=== PATIENT | female | born 1950 | race Caucasian/White ===

== ENCOUNTER 2017-02-14 10:56 | Emergency (ER) | payer MEDICARE, MEDICAID ==
[2017-02-14 14:38] LABS: BASOPHILS 0.1 % (0-2); EOSINOPHILS 0.8 % (0-7); HEMATOCRIT 29.6 % (36.0-48.0); HEMOGLOBIN 9.9 g/dL (12-16); IMMATURE GRANULOCYTES 0.1 % (0-5); INR 1.04 (0.85-1.17); LYMPHOCYTES 19.8 % (15-50); MCH 29.8 pg (26.0-34.0); MCHC 33.4 g/dL (31.0-37.0); MCV 89.2 fL (80.0-100.0); MEAN PLATELET VOLUME 11.1 fL (7.4-10.4); MONOCYTES 7.4 % (2-11); NEUTROPHILS 71.8 % (40-80); PROTIME 13.5 SECONDS (11.6-15.0); RBC 3.32 10x6/uL (4.00-5.40); RDW 15.9 % (11.5-14.5); WBC 7.7 10x3/uL (4.8-10.8)
[2017-02-14 14:43] LABS: ALBUMIN 3.7 g/dL (3.4-5.0); ALKALINE PHOSPHATASE 60 U/L (46-116); ALT (SGPT) 12 U/L (10-68); CALC OSMOLALITY 289 mosm/kg (275-300); CALCIUM 9.1 mg/dL (8.5-10.1); CARBON DIOXIDE 25.4 mmol/L (21.0-32.0); CHLORIDE - SERUM 101 mmol/L (98-107); CREATININE - SERUM 1.6 mg/dL (0.6-1.3); GLUCOSE 106 mg/dL (74-106); PROTEIN - SERUM 8.8 g/dL (6.4-8.2); SODIUM 138 mmol/L (136-145); UREA NITROGEN 53 mg/dL (7-18); eGFR NON AFRICAN AMERICAN 34 mL/min (90-120)
[2017-02-14 14:44] LABS: PLATELET COUNT 160 10x3/uL (130-400)
[2017-02-14 14:47] LABS: TROPONIN-I < 0.017 ng/mL (0.000-0.060); URIC ACID 12.6 mg/dL (2.6-7.2)
== END 2017-02-14 15:30 | disposition left against medical advice (07) ==
LOC: D.ER 10:56
PROVIDERS: Nurse Practitioner Family
DX: M79.1 Myalgia (principal)

== ENCOUNTER 2017-12-18 11:18 | Emergency (ER) | payer MEDICARE, MEDICAID ==
[~2017-12-18] VITALS: Ht 162.6 cm; Wt 52.5 kg
[2017-12-18 11:24] VITALS: BP 139/74; Ht 162.6 cm; Wt 52.5 kg
[2017-12-18] MEDS ORDERED: TOPROL XL100 MG PO (11:26)
[2017-12-18] MEDS ORDERED: OMEPRAZOLE20 M1 (11:26)
[2017-12-18] MEDS ORDERED: PLAVIX75 MG PO (11:27)
[2017-12-18] MEDS ORDERED: LIPITOR20 MG PO (11:27)
[2017-12-18] MEDS ORDERED: FUROSEMIDE20 MG PO (11:27)
[2017-12-18] MEDS ORDERED: ISOSORBIDE MONO60 M1 PO (11:28)
[2017-12-18] MEDS ORDERED: LOTREL 10-40 M1 EACH PO (11:28)
[2017-12-18] MEDS ORDERED: CYCLOBENZAPRINE5 MG PO (17:17)
== END 2017-12-18 19:28 | disposition home or self-care (01) ==
LOC: D.ER 11:18
DX: M62.838 Other muscle spasm (principal); R51 Headache; Z86.73 Personal history of transient ischemic attack (TIA), and cerebral infarction without residual deficits; I10 Essential (primary) hypertension; K21.9 Gastro-esophageal reflux disease without esophagitis; F17.200 Nicotine dependence, unspecified, uncomplicated

== ENCOUNTER → 2017-12-25 08:44 | Outpatient (CLI) | payer MEDICARE, MEDICAID ==
[2017-12-18 11:24] VITALS: BMI 19.8
[~2017-12-25 08:44] MED LIST: CYCLOBENZAPRINE5 MG PO; FUROSEMIDE20 MG PO; ISOSORBIDE MONO60 M1 PO; LIPITOR20 MG PO; LOTREL 10-40 M1 EACH PO; OMEPRAZOLE20 M1; PLAVIX75 MG PO; TOPROL XL100 MG PO
== END | disposition home or self-care (01) ==
LOC: D.CT 08:44 → D.MAMMO 10:00
DX: H53.9 Unspecified visual disturbance (principal)

== ENCOUNTER 2018-03-19 07:34 | Emergency (ER) | payer MEDICARE, MEDICAID ==
[~2018-03-19] VITALS: Ht 162.6 cm; Wt 53.2 kg
[2018-03-19 07:46] VITALS: Ht 162.6 cm; Wt 53.2 kg
[2018-03-19 08:13] LABS: BASOPHILS 0.2 % (0-2); EOSINOPHILS 1.7 % (0-7); HEMATOCRIT 31.1 % (36.0-48.0); HEMOGLOBIN 10.5 g/dL (12-16); IMMATURE GRANULOCYTES 0.1 % (0-5); LYMPHOCYTES 30.1 % (15-50); MCH 29.7 pg (26.0-34.0); MCHC 33.8 g/dL (31.0-37.0); MCV 87.9 fL (80.0-100.0); MEAN PLATELET VOLUME 9.4 fL (7.4-10.4); MONOCYTES 10.9 % (2-11); RBC 3.54 10x6/uL (4.00-5.40); RDW 14.8 % (11.5-14.5); WBC 9.4 10x3/uL (4.8-10.8)
[2018-03-19 08:17] LABS: PLATELET COUNT 289 10x3/uL (130-400)
[2018-03-19 08:30] LABS: ALBUMIN 3.4 g/dL (3.4-5.0); ANION GAP 17.4 mmol/L (8-16); BILIRUBIN - TOTAL 0.23 mg/dL (0.2-1.3); CALCIUM 9.6 mg/dL (8.5-10.1); CARBON DIOXIDE 25.2 mmol/L (21.0-32.0); CREATININE - SERUM 1.5 mg/dL (0.6-1.3); POTASSIUM - SERUM 3.6 mmol/L (3.5-5.1); PROTEIN - SERUM 9.7 g/dL (6.4-8.2); URIC ACID 7.5 mg/dL (2.6-7.2)
[2018-03-19] MEDS ORDERED: TYLENOL W/CODEI1 TAB PO (08:38)
[2018-03-19] MEDS ORDERED: CELEBREX 100 M100 MG PO (08:38)
[2018-03-19 09:24] VITALS: BP 119/91
== END 2018-03-19 09:22 | disposition home or self-care (01) ==
LOC: D.ER 07:34
PROVIDERS: Family Medicine
DX: M10.041 Idiopathic gout, right hand (principal); N28.9 Disorder of kidney and ureter, unspecified; Z86.73 Personal history of transient ischemic attack (TIA), and cerebral infarction without residual deficits; I10 Essential (primary) hypertension

== ENCOUNTER → 2018-04-03 15:04 | Outpatient (CLI) | payer MEDICARE, MEDICAID ==
[2018-03-19 07:46] VITALS: BMI 20.1
[~2018-04-03 15:04] MED LIST changes: +CELEBREX 100 M100 MG PO; +TYLENOL W/CODEI1 TAB PO
[2018-04-03 15:41] LABS: BASOPHILS 0.1 % (0-2); EOSINOPHILS 1.4 % (0-7); HEMATOCRIT 28.9 % (36.0-48.0); HEMOGLOBIN 9.7 g/dL (12-16); IMMATURE GRANULOCYTES 0.2 % (0-5); LYMPHOCYTES 35.1 % (15-50); MCH 29.2 pg (26.0-34.0); MCHC 33.6 g/dL (31.0-37.0); MEAN PLATELET VOLUME 9.8 fL (7.4-10.4); MONOCYTES 8.4 % (2-11); NEUTROPHILS 54.8 % (40-80); PLATELET COUNT 252 10x3/uL (130-400); RBC 3.32 10x6/uL (4.00-5.40); RDW 15.6 % (11.5-14.5); WBC 9.6 10x3/uL (4.8-10.8)
[2018-04-03 15:57] LABS: C-REACTIVE PROTEIN 0.4 mg/dL (0.0-0.9); URIC ACID 12.1 mg/dL (2.6-7.2)
[2018-04-03 16:51] LABS: ERYTHROCYTE SEDIMENTATION RATE 96 mm/hr (0-30)
[2018-04-05 10:22] LABS: ANA REFLEX - DIRECT Negative (Negative)
== END | disposition home or self-care (01) ==
LOC: D.LAB 15:04
PROVIDERS: Orthopaedic Surgery
DX: M13.0 Polyarthritis, unspecified (principal)

== ENCOUNTER → 2018-05-01 09:22 | Outpatient (CLI) | payer MEDICARE, MEDICAID ==
[2018-03-19 07:46] VITALS: BMI 20.1
== END | disposition home or self-care (01) ==
LOC: D.CT 09:00
DX: I65.23 Occlusion and stenosis of bilateral carotid arteries (principal)

== ENCOUNTER 2018-06-27 08:08 | Outpatient (CLI) | payer MEDICARE, MEDICAID ==
[~2018-06-27] VITALS: Ht 162.6 cm; Wt 53.6 kg
--- NOTE | ~2018-06-27 | HEMODYNAMI ---
PATIENT:MARIAM THAYER MEDICAL RECORD: [id number] : 50 LOCATION:[facility] ADMISSION DATE: 06/27/18 Generatedon:06/27/201812:16 Patient name: MARIAM THAYER Patient #: [id number] SSN: : 1950 Date of study: 06/27/2018 Page: Of Hemodynamic Procedure Report Patient Data Patient Demographics Procedure consent was obtained First Name: MARIAM Gender: Female Last Name: FLACA : 1950 Middle Initial: M Age: 67 year(s) Patient #: [id number] Race: Unknown Additional ID: [id number] Contact details Address: [address] [place] [address] State: [place] City: [place] Zip code: [address] Past Medical History Allergies Allergen Reaction Date Comments Reported Other allergy 06/27/2018 sulfa and allopurinol Admission Admission Data Admission Date: 06/27/2018 Admission Time: 8:08 Procedure Procedure Types Cath Procedure Peripheral Cath Diagnostic Procedure 4-Vessel Procedure Description Procedure Date Procedure Date: 06/27/2018 Procedure Start Time: 11:10 Procedure Staff Name Function Tramaine Adam MD Performing Physician Markell White RT Monitor Janey Kwong RN Nurse Shae Appiah Scrub Procedure Data Cath Procedure Fluoroscopy Diagnostic fluoroscopy Total fluoroscopy Time: time: 11.2 min 11.2 min Diagnostic fluoroscopy Total fluoroscopy dose: 745 dose: 745 mGy mGy Entry Location Entry Primary Successful Side Size Upsize Upsize Entry Closure Succes sful Closure Location (Fr) 1 (Fr) 2 (Fr) Remarks Device Remarks Femoral Right 5 Fr Exoseal artery Diagnostic catheters Device Type Used For End Catheter Placement Merit ULTRA BOLUS FLUSH 5Fr 90CM catheter ([id number]) Procedure Medications Medication Administration Route Dosage Heparin Flush Bag added to field 3 bags (1000units/500ml NS) Lidocaine 1% added to field 20 Versed I.V. 1 mg Fentanyl I.V. 50 mcg Versed I.V. 1 mg Fentanyl I.V. 50 mcg Heparin Bolus I.V. 2500 units Hemodynamics Rest Heart Rate: 75 (bpm) Snapshots Pre Cath Intra NCS Post Cath Vital Signs Time Heart Resp SPO2 etCO2 NIBP Rhythm Pain Sedation Rate (ipm) (%) (mmHg) (mmHg) Status Level (bpm) 10:54:37 75 16 100 32.9 109/58(81) NSR 0 (11) 10(A) , No pain 10:58:45 70 18 100 32.2 117/57(93) NSR 0 (11) 10(A) , No pain 11:02:55 68 15 100 32.9 108/57(82) NSR 0 (11) 10(A) , No pain 11:07:03 68 16 100 35.9 117/53(89) NSR 0 (11) 10(A) , No pain 11:11:11 72 19 100 30.7 122/60(89) NSR 0 (11) 10(A) , No pain 11:15:20 82 15 100 38.1 117/64(97) NSR 0 (11) 8(A) , No pain 11:19:28 73 21 100 37.4 103/58(82) NSR 0 (11) 8(A) , No pain 11:23:32 72 13 100 39.6 101/54(81) NSR 0 (11) 8(A) , No pain 11:27:38 72 13 100 38.1 98/50(69) NSR 0 (11) 8(A) , No pain 11:31:40 71 13 100 38.9 103/57(86) NSR 0 (11) 8(A) , No pain 11:35:46 64 16 100 38.1 102/53(89) NSR 0 (11) 8(A) , No pain 11:39:51 67 34 100 36.7 99/51(82) NSR 0 (11) 8(A) , No pain 11:43:55 65 15 100 36.6 112/55(82) NSR 0 (11) 8(A) , No pain 11:47:59 78 22 100 41.1 106/67(97) NSR 0 (11) 8(A) , No pain 11:52:04 67 15 100 20.9 109/52(87) NSR 0 (11) 8(A) , No pain 11:56:12 65 14 100 35.9 101/53(77) NSR 0 (11) 8(A) , No pain 12:00:16 65 13 100 36.6 102/54(75) NSR 0 (11) 8(A) , No pain 12:05:13 75 16 100 37.4 123/62(96) NSR 0 (11) 8(A) , No pain 12:09:23 70 15 100 36.6 117/62(91) NSR 0 (11) 8(A) , No pain 12:13:31 66 16 100 35.9 106/60(85) NSR 0 (11) 8(A) , No pain Medications Time Medication Route Dose Verified Delivered Reason Notes Effec tiveness by by 10:51:35 Heparin Flush added 3 Tramaine Redd used for Bag to bags Kia Adam procedure (1000units/500ml field MD MUÑOZ NS) 10:51:47 Lidocaine 1% added 20ml Tramaine Redd used for to vial Kia Adam procedure field MD MUÑOZ 11:11:11 Versed I.V. 1 mg Tramaine Toth for Kia Kwong RN sedation 11:11:25 Fentanyl I.V. 50 Tramaine Janey for mcg Kia Kwong RN sedation 11:18:18 Versed I.V. 1 mg Tramaine Janey for Kia Wilderr RN sedation 11:18:25 Fentanyl I.V. 50 Tramaine Janey for mcg Kia Kwong RN sedation 11:27:34 Heparin Bolus I.V. 2500 Tramaine Toth used for units Kia Kwong telecommunications linesworker Procedure Log Time Note 10:32:40 Markell White RT (R) (CV) sent for patient. Start room use. 10:32:49 Time tracking: Regular hours (M-F 7:00 - 5:00) 10:32:56 Plan of Care:Hemodynamics will remain stable., Cardiac rhythm will remain stable., Comfort level will be maintained., Respiratory function will remain adequate., Patient/ family verbilizes understanding of procedure., Procedure tolerated without complication., Recovers from procedure without complications.. 10:33:07 Patient received from Outpatients to IR Alert and oriented. Tansferred to table in Supine position. 10:33:12 Correct patient and procedure confirmed by team. 10:33:14 Signed procedure consent form obtained from patient. 10:33:15 ECG and BP/O2 sat monitors applied to patient. 10:33:16 Full Disclosure recording started 10:33:17 - 10:33:21 H&P Date Dictated: 06/27/2018 H&P Addendum completed by physician on da y of procedure. (MUST COMPLETE FOR ALL OUTPATIENTS). 10:33:26 Use device set IR Diagnostic 10:33:27 ACIST Syringe (30998) opened to sterile field. 10:33:27 ACIST Hand Control (15059) opened to sterile field. 10:33:28 ACIST Manifold (65586) opened to sterile field. 10:33:28 Bag Decanter (2002S) opened to sterile field. 10:33:28 Sterile Angiographic Pack opened to sterile field. 10:33:29 Tegaderm 4 x 4 (1626W) opened to sterile field. 10:33:36 Pre-procedure instructions explained to patient. 10:33:36 Pre-op teaching completed and patient verbalized understanding. 10:33:38 Family in waiting room. 10:33:40 Patient NPO since Midnight. 10:34:16 Patient allergic to Other allergysulfa and allopurinol 10:38:31 Is the patient allergic to Iodine/contrast media? No. 10:38:36 Is patient on blood thinner?No 10:38:41 Patient diabetic? No. 10:38:47 - 10:38:47 ----Pre-sedation anethsthesia assessment.---- 10:38:55 Previous problem with sedation/anesthesia? No ? 10:38:56 Snore? Yes 10:38:58 Sleep apnea? No 10:39:00 Deviated septum? No 10:39:02 Opens mouth fully? Yes 10:39:04 Sticks out tongue? Yes 10:39:07 Airway obstruction? No ? 10:39:09 Dentures? No ? 10:39:10 - 10:39:25 Pre procedure: right dorsailis pedis pulse 1+ Palpable, but thready & weak; easily obliterated 10:39:29 Pre procedure: right posterior tibial pulse 1+ Palpable, but thready & weak; easily obliterated 10:39:36 Patient pain scale 0/10 no pain. 10:39:42 IV patent on arrival in left forearm with 0.9% NaCl at [facility]. 10:39:44 Sharps counted by scrub and verified by R.N. 10:39:44 Alarms reviewed by R. N. 10:39:48 Right groin area was prepped with chlora-prep and draped in sterile fashion 10:51:35 Heparin Flush Bag (1000units/500ml NS) 3 bags added to field was administered by Tramaine Adam MD; used for procedure; 10:51:47 Lidocaine 1% 20ml vial added to field was administered by Tramaine felipe MD; used for procedure; 10:53:32 Baseline sample Acquired. 10:53:32 Vital chart was started 11:08:07 --------ALL STOP TIME OUT------ 11:08:07 Final Timeout: patient, procedure, and site verified with staff and physician. All members of the team are in agreement. 11:08:09 Right groin site verified by team. 11:08:14 Sedation plan: IV Moderate Sedation Medication:Versed, Fentanyl 11:10:07 Procedure started. 11:10:11 Local anesthetic to right femoral artery with Lidocaine 1% by Tramaine Adam MD.INITIAL ACCESS ONLY 11:11:11 Versed 1 mg I.V. was administered by Janey Kwong RN; for sedation; 11:11:25 Fentanyl 50 mcg I.V. was administered by Janey Kwong RN; for sedation ; 11:18:18 Versed 1 mg I.V. was administered by Janey Kwong RN; for sedation; 11:18:25 Fentanyl 50 mcg I.V. was administered by Janey Kwong RN; for sedation ; 11:25:05 GLIDE CATHETER 5FR GOODMAN 2 100cm (CG511) opened to sterile field. 11:25:08 A [employer]Haus ULTRA BOLUS FLUSH 5Fr 90CM catheter ([id number]) was advanced over the wire and used for . 11:25:10 SHEATH 5FR [place] (PTT264) opened to sterile field. 11:25:10 Micropuncture VSI 4FR kit opened to sterile field. 11:25:11 TUBING Contrast Injection High Pressure (OZP619S) opened to sterile field. 11:25:12 AccuSiliconSON 145cm wire (Q05635) opened to sterile field. 11:25:12 GLIDE CATHETER 5FR GOODMAN 2 100cm (CG511) opened to sterile field. 11:25:31 A 5 Fr sheath was inserted into the Right Femoral artery 11:27:34 Heparin Bolus 2500 units I.V. was administered by Janey Kwong RN; use d for procedure; 11:53:31 TORQUE DEVICE PLASTIC .038 ( TD01) opened to sterile field. 11:53:31 GLIDE WIRE ANGLE 180cm (KF8806) opened to sterile field. 11:56:32 EXOSEAL 5Fr (EX500) opened to sterile field. 12:01:55 Sheath removed intact; hemostasis achieved with Exoseal to the Right Femoral artery. 12:01:58 Procedure ended.(Physican Out) 12:03:50 Fluoroscopy time 11.20 minutes. 12:03:55 Fluoroscopy dose: 745 mGy 12:03:55 Flurop Dose total: 745 12:04:07 Insertion/operative site no bleeding no hematoma. 12:04:12 Post-op/insertion site Right Femoral artery dressed using a 4 x 4 and Tegaderm. 12:04:15 Post right femoral artery:stable 12:04:18 Post Procedure Pulses reassessed and unchanged 12:05:20 Post procedure instruction explained to patient.Patient verbalizes understanding. 12:05:24 Procedure and supply charges have been captured, reviewed, submitted an d are correct. 12:15:37 Report given to Outpatients. 12:15:42 Patient transfered to Outpatients with Stretcher. 12:16:07 Vital chart was stopped Device Usage Item Name Manufacture Quantity Catalog Number Hospital Part Current Al nimal Lot# / Charge Number Stock Stock Serial# Code ACIST Syringe Acist 1 13821 456445 194212 907254 20 (41481) Medical Systems Inc ACIST Hand Acist 1 90792 720179 576449 916721 5 Control Medical (98769) Systems Inc ACIST Manifold Acist 1 36376 117914 085632 324080 5 (04420) Medical Systems Inc Bag Decanter Microtek 1 2001S 129418 99036 396330 5 (2001S) Medical Inc. Sterile Cardinal 1 [id number] 661345 520791 5 Angiographic Health Pack Tegaderm 4 x 4 3M 1 1626W 833768 725274 622979 5 (1626W) GLIDE CATHETER Terumo 2 CG511 746702 742360 5 5FR GOODMAN 2 100cm (CG511) Merit ULTRA Merit 1 [id number] 211726 761874 5 BOLUS FLUSH Medical 5Fr 90CM catheter ([id number]) SHEATH 5FR Terumo 1 XSS452 835540 683534 253492 5 [place] (FBJ296) Micropuncture VSI VASCULAR 1 7266V 472008 415184 5 VSI 4FR kit SOLUTIONS TUBING Merit 1 PHC352C 647742 103677 339828 5 Contrast Medical Injection High Pressure ([id number]) BENTSON 145cm Cook Medical 1 V42183 949555 420436 5 wire (N69698) TORQUE DEVICE [place] 1 TD01 162715 614513 082999 5 PLASTIC .038 ( Scientific TD01) GLIDE WIRE Terumo 1 RF2833 829086 988919 251265 5 ANGLE 180cm (IC7260) EXOSEAL 5Fr Cardinal 1 EX500 582233 242807 806896 10 [id number] (EX500) Health Signature Audit Revloc Stage Time Signature Unsigned Intra-Procedure 06/27/2018 Markell 12:16:04 PM [place] RT (R) (CV) Signatures Monitor : Markell Signature : [place] RT Date : Time : [address] [place] [address]
[2018-06-27 08:31] LABS: BASOPHILS 0.3 % (0-2); EOSINOPHILS 1.8 % (0-7); HEMOGLOBIN 10.7 g/dL (12-16); IMMATURE GRANULOCYTES 0.2 % (0-5); LYMPHOCYTES 25.5 % (15-50); MCH 29.7 pg (26.0-34.0); MCHC 33.4 g/dL (31.0-37.0); MCV 88.9 fL (80.0-100.0); MEAN PLATELET VOLUME 9.3 fL (7.4-10.4); NEUTROPHILS 64.2 % (40-80); PLATELET COUNT 205 10x3/uL (130-400); RDW 15.5 % (11.5-14.5); WBC 9.9 10x3/uL (4.8-10.8)
[2018-06-27 08:43] LABS: ANION GAP 16.5 mmol/L (8-16); CALCIUM 7.9 mg/dL (8.5-10.1); CARBON DIOXIDE 28.3 mmol/L (21.0-32.0); CREATININE - SERUM 1.4 mg/dL (0.6-1.3)
[2018-06-27 08:49] LABS: APTT 26.4 SECONDS (22.8-39.4); INR 1.11 (0.85-1.17); POTASSIUM - SERUM 2.8 mmol/L (3.5-5.1); PROTIME 13.8 SECONDS (11.6-15.0)
[2018-06-27 09:23] VITALS: BP 132/50; Ht 162.6 cm; Wt 53.6 kg
== END 2018-06-27 16:35 | disposition home or self-care (01) ==
LOC: D.SP 08:08 → D.RAD 13:00 → D.SP 13:00
PROVIDERS: Radiology Diagnostic Radiology
DX: I65.23 Occlusion and stenosis of bilateral carotid arteries (principal); Z01.812 Encounter for preprocedural laboratory examination

== ENCOUNTER 2018-07-27 08:00 | Outpatient (CLI) | payer MEDICARE, MEDICAID ==
[2018-07-27] MEDS ORDERED: BAYER CHEWABLE81 MG PO (09:25)
[2018-07-27 10:10] LABS: HEMATOCRIT 32.9 % (36.0-48.0); HEMOGLOBIN 11.1 g/dL (12-16); MCH 30.2 pg (26.0-34.0); MCHC 33.7 g/dL (31.0-37.0); MCV 89.6 fL (80.0-100.0); MEAN PLATELET VOLUME 9.5 fL (7.4-10.4); RBC 3.67 10x6/uL (4.00-5.40); WBC 7.9 10x3/uL (4.8-10.8)
[2018-07-27 10:17] LABS: INR 1.12 (0.85-1.17); PROTIME 13.9 SECONDS (11.6-15.0)
[2018-07-27 10:25] LABS: ALBUMIN 3.6 g/dL (3.4-5.0); ANION GAP 13.6 mmol/L (8-16); BILIRUBIN - TOTAL 0.36 mg/dL (0.2-1.3); CALCIUM 8.1 mg/dL (8.5-10.1); CREATININE - SERUM 1.1 mg/dL (0.6-1.3); PROTEIN - SERUM 9.5 g/dL (6.4-8.2)
[2018-07-27 10:28] LABS: POTASSIUM - SERUM 2.6 mmol/L (3.5-5.1)
[2018-07-27 10:32] LABS: APPEARANCE HAZY (CLEAR); BILIRUBIN NEGATIVE (NEGATIVE); COLOR YELLOW (YELLOW); GLUCOSE NEGATIVE (NEGATIVE); KETONE NEGATIVE (NEGATIVE); NITRITE NEGATIVE (NEGATIVE); PROTEIN TRACE mg/dL (NEGATIVE); SPECIFIC GRAVITY 1.015 (1.005-1.020); UROBILINOGEN NORMAL (NORMAL)
[2018-07-27 10:33] LABS: BACTERIA MODERATE /hpf (NONE SEEN); EPITHELIAL CELLS 0-5 /hpf (0-5); MUCUS <1+ /lpf (NONE SEEN)
[2018-07-27 10:34] LABS: RED CELLS - URINE OCC /hpf (0-5)
[2018-08-10 13:13] VITALS: BMI 19.4
[2018-09-04] MEDS ORDERED: ULORIC40 MG PO (08:26)
== END 2018-07-27 08:01 | disposition home or self-care (01) ==
LOC: D.OPS 08:00 → EDSTATUS 07-31 07:30 → D.SDCHOLD 07-31 07:30
PROVIDERS: Thoracic Surgery (Cardiothoracic Vascular Surgery)
DX: I65.29 Occlusion and stenosis of unspecified carotid artery (principal); Z01.810 Encounter for preprocedural cardiovascular examination; Z01.811 Encounter for preprocedural respiratory examination; Z01.812 Encounter for preprocedural laboratory examination

== ENCOUNTER → 2018-08-10 12:17 | Outpatient (CLI) | payer MEDICARE, MEDICAID ==
[2018-06-27 09:23] VITALS: BMI 20.3
[~2018-08-10 12:17] MED LIST changes: +BAYER CHEWABLE81 MG PO; +HYDROCODON-ACE1 EA10 PO; +ULORIC40 MG PO
[2018-08-10 13:41] LABS: APPEARANCE CLOUDY (CLEAR); BACTERIA MANY /hpf (NONE SEEN); BILIRUBIN NEGATIVE (NEGATIVE); COLOR YELLOW (YELLOW); GLUCOSE NEGATIVE (NEGATIVE); KETONE NEGATIVE (NEGATIVE); MUCUS <1+ /lpf (NONE SEEN); NITRITE NEGATIVE (NEGATIVE); PROTEIN TRACE mg/dL (NEGATIVE); RED CELLS - URINE OCC /hpf (0-5); UROBILINOGEN NORMAL (NORMAL)
== END | disposition home or self-care (01) ==
LOC: D.LAB 08-03 08:00
PROVIDERS: Thoracic Surgery (Cardiothoracic Vascular Surgery)
DX: N39.0 Urinary tract infection, site not specified (principal)

== ENCOUNTER 2018-08-10 12:54 | Emergency (ER) | payer MEDICARE, MEDICAID ==
[~2018-08-10] VITALS: Ht 162.6 cm; Wt 51.4 kg
[~2018-08-10 12:54] MED LIST changes: -HYDROCODON-ACE1 EA10 PO; -ULORIC40 MG PO
[2018-08-10 13:13] VITALS: BP 110/53; Ht 162.6 cm; Wt 51.4 kg
[2018-08-10] MEDS ORDERED: HYDROCODON-ACE1 EA10 PO (13:17)
[2018-08-10 14:56] LABS: HEMATOCRIT 31.6 % (36.0-48.0); HEMOGLOBIN 10.5 g/dL (12-16); LYMPHOCYTES 24.7 % (15-50); MCH 29.9 pg (26.0-34.0); MCHC 33.2 g/dL (31.0-37.0); MEAN PLATELET VOLUME 9.6 fL (7.4-10.4); NEUTROPHILS 66.3 % (40-80); PLATELET COUNT 276 10x3/uL (130-400); RBC 3.51 10x6/uL (4.00-5.40); WBC 9.1 10x3/uL (4.8-10.8)
[2018-08-10 15:11] LABS: ALBUMIN 3.3 g/dL (3.4-5.0); ANION GAP 17.2 mmol/L (8-16); BILIRUBIN - TOTAL 0.34 mg/dL (0.2-1.3); C-REACTIVE PROTEIN 10.7 mg/dL (0.0-0.9); CALCIUM 8.3 mg/dL (8.5-10.1); CARBON DIOXIDE 26.5 mmol/L (21.0-32.0); CREATININE - SERUM 1.3 mg/dL (0.6-1.3); PROTEIN - SERUM 9.1 g/dL (6.4-8.2); URIC ACID 6.5 mg/dL (2.6-7.2)
[2018-08-10 15:12] LABS: POTASSIUM - SERUM 2.7 mmol/L (3.5-5.1)
[2018-08-10 16:36] LABS: ERYTHROCYTE SEDIMENTATION RATE 101 mm/hr (0-30)
[2018-09-04] MEDS ORDERED: ULORIC40 MG PO (08:26)
== END 2018-08-10 15:07 | disposition left against medical advice (07) ==
LOC: D.ER 12:54
PROVIDERS: Family Medicine
DX: M25.562 Pain in left knee (principal); F17.200 Nicotine dependence, unspecified, uncomplicated

== ENCOUNTER 2018-09-03 08:42 | Inpatient (IN) | payer MEDICARE, MEDICAID ==
[~2018-09-03] VITALS: Ht 162.6 cm; Wt 50.1 kg
[~2018-09-03 08:42] MED LIST changes: -FUROSEMIDE20 MG PO; +FUROSEMIDE20 MG PT; +HYDROCODON-ACE1 EA10 PO; -PLAVIX75 MG PO; +PLAVIX75 MG PT
[2018-09-04] VITALS (34 sets, daily range): BP systolic 92–141; BP diastolic 28–54; BMI 19.2; BMI 19.1
[2018-09-04 07:49] LABS: HEMATOCRIT 29.4 % (36.0-48.0); HEMOGLOBIN 9.7 g/dL (12-16); MCH 29.9 pg (26.0-34.0); MCV 90.7 fL (80.0-100.0); MEAN PLATELET VOLUME 9.3 fL (7.4-10.4); RBC 3.24 10x6/uL (4.00-5.40); RDW 15.8 % (11.5-14.5); WBC 6.2 10x3/uL (4.8-10.8)
[2018-09-04 08:08] LABS: ALBUMIN 3.8 g/dL (3.4-5.0); ANION GAP 15.7 mmol/L (8-16); BILIRUBIN - TOTAL 0.2 mg/dL (0.2-1.3); CALCIUM 8.6 mg/dL (8.5-10.1); CARBON DIOXIDE 24.1 mmol/L (21.0-32.0); CREATININE - SERUM 2.1 mg/dL (0.6-1.3); POTASSIUM - SERUM 4.8 mmol/L (3.5-5.1)
[2018-09-04 08:11] LABS: APTT 26.1 SECONDS (22.8-39.4); INR 1.15 (0.85-1.17); PROTIME 14.2 SECONDS (11.6-15.0)
[2018-09-04] MEDS ORDERED: ULORIC40 MG PT (08:26)
[2018-09-05] VITALS (52 sets, daily range): BP systolic 104–144; BP diastolic 39–70; BMI 19.9
[2018-09-05 10:49] LABS: BASOPHILS 0.1 % (0-2); EOSINOPHILS 0 % (0-7); HEMATOCRIT 25.6 % (36.0-48.0); HEMOGLOBIN 8.6 g/dL (12-16); IMMATURE GRANULOCYTES 0.2 % (0-5); LYMPHOCYTES 21.3 % (15-50); MCH 30.1 pg (26.0-34.0); MCHC 33.6 g/dL (31.0-37.0); MCV 89.5 fL (80.0-100.0); MEAN PLATELET VOLUME 9.8 fL (7.4-10.4); MONOCYTES 11.7 % (2-11); NEUTROPHILS 66.7 % (40-80); RBC 2.86 10x6/uL (4.00-5.40); RDW 15.7 % (11.5-14.5)
[2018-09-05 10:51] LABS: PLATELET COUNT 174 10x3/uL (130-400); WBC 9.9 10x3/uL (4.8-10.8)
[2018-09-05 10:59] LABS: ANION GAP 18.2 mmol/L (8-16); CARBON DIOXIDE 21.6 mmol/L (21.0-32.0); POTASSIUM - SERUM 4.8 mmol/L (3.5-5.1)
[2018-09-05 11:01] LABS: CREATININE - SERUM 1.3 mg/dL (0.6-1.3)
[2018-09-06] VITALS (27 sets, daily range): BP systolic 115–147; BP diastolic 43–67
[2018-09-06 08:43] LABS: % SATURATION 54 % (15-55); IRON 128 ug/dl (35-150); TOTAL IRON BIND CAPACITY 237 ug/dl (260-445); UNSAT IRON BIND CAPACITY 109 ug/dl (150-375)
[2018-09-06 08:48] LABS: BASOPHILS 0.2 % (0-2); HEMATOCRIT 24.9 % (36.0-48.0); HEMOGLOBIN 8.3 g/dL (12-16); IMMATURE GRANULOCYTES 0.2 % (0-5); LYMPHOCYTES 23.1 % (15-50); MCH 30.1 pg (26.0-34.0); MCHC 33.3 g/dL (31.0-37.0); MCV 90.2 fL (80.0-100.0); MEAN PLATELET VOLUME 10.2 fL (7.4-10.4); MONOCYTES 12.6 % (2-11); NEUTROPHILS 62.9 % (40-80); PLATELET COUNT 193 10x3/uL (130-400); RBC 2.76 10x6/uL (4.00-5.40); RDW 16.1 % (11.5-14.5); WBC 9.8 10x3/uL (4.8-10.8)
[2018-09-06 09:07] LABS: ALBUMIN 3.1 g/dL (3.4-5.0); ANION GAP 18.3 mmol/L (8-16); BILIRUBIN - TOTAL 0.36 mg/dL (0.2-1.3); CALCIUM 8.8 mg/dL (8.5-10.1); CARBON DIOXIDE 22.9 mmol/L (21.0-32.0); CREATININE - SERUM 1.2 mg/dL (0.6-1.3); POTASSIUM - SERUM 4.2 mmol/L (3.5-5.1); PROTEIN - SERUM 7.9 g/dL (6.4-8.2)
--- NOTE | 2018-09-06 18:28 | MORECARE ---
CASE MANAGEMENT DISCHARGE SUMMARY PATIENT: MARIAM THAYER UNIT: [id number] ADM DATE: 09/04/18 AGE: 67 : 50 SEX: F ROOM/BED: [facility] AUTHOR: CHERYL,DOC PHYSICIAN: REFERRING PHYSICIAN: KAITLYN MOORE MD DATE OF SERVICE: 09/06/18 Discharge Plan Patient Name: MARIAM THAYER Facility: [facility]:[place] : 1950 Planned Disposition: Home Anticipated Discharge Date: Discharge Date: Expected LOS: Initial Reviewer: [email or web address] Initial Review Date: 09/04/2018 Generated: 09/06/18 7:28 pm Comments DCP- Discharge Planning Updated by [email or web address]: Aleah Sprague on 09/06/18 5:[address] Patient Name: MARIAM THAYER Admission Status: Elective Accout number: [id number] Admission Date: 09-04-2018 : 1950 Admission Diagnosis:OCCLUSION AND STENOSIS OF BILATERAL CAROTID ARTERIES Attending: KAITLYN MOORE Current LOS: 2 Anticipated DC Date: Planned Disposition: Home Primary Insurance: [employer] MEDICARE ADV Discharge Planning Comments: CM met with patient at bedside about discharge planning / needs. Patient states she lives alone. Patient states she plans to discharge to her home. States she will have family transport her home upon discharge. Denies need for home health or other community resource needs. States home environment is safe. Denies any discharge needs or concerns at this time. CM will continue to follow and assist as needed with discharge planning / needs. Social Worker Palliative Care: Aleah Sprague DCPIA - Discharge Planning Initial Assessment Updated by [email or web address]: Aleah Sprague on 09/06/18 6:26 pm * Is the patient Alert and Oriented? Yes * How many steps to enter\exit or inside your home? 12 * PCP juliette * Pharmacy [facility] * Preadmission Environment Home Alone * ADLs Independent * Equipment Walker * Other Equipment cane * List name and contact numbers for known caregivers / representatives who currently or will assist patient after discharge: tia thayer [phone] * Verbal permission to speak to the caregivers and representatives has been obtained from the patient. N/A * Community resources currently utilized None * Additional services required to return to the preadmission environment? No * Can the patient safely return to the preadmission environment? Yes * Has this patient been hospitalized within the prior 30 days at any hospital? No Patient Name: MARIAM THAYER Page 89221 at 1828 All edits/amendments must be made on the electronic document DICTATION DATE: 09/06/181826 LABORATORY ADMINISTRATIVE DIRECTOR: KWAME 09/06/181826 RPT#: [id number] DC DATE: STATUS: ADM IN [facility] [address] [place] [address] END OF REPORT
[2018-09-06 22:19] LABS: APPEARANCE CLEAR (CLEAR); BACTERIA NONE SEEN /hpf (NONE SEEN); BILIRUBIN NEGATIVE (NEGATIVE); COLOR YELLOW (YELLOW); EPITHELIAL CELLS RARE /hpf (0-5); GLUCOSE NEGATIVE (NEGATIVE); KETONE SMALL mg/dL (NEGATIVE); NITRITE NEGATIVE (NEGATIVE); PROTEIN TRACE mg/dL (NEGATIVE); RED CELLS - URINE 0-5 /hpf (0-5); SPECIFIC GRAVITY 1.015 (1.005-1.020); UROBILINOGEN NORMAL (NORMAL)
[2018-09-07] VITALS (32 sets, daily range): BP systolic 129–174; BP diastolic 51–77
[2018-09-07 05:47] LABS: BASOPHILS 0.1 % (0-2); EOSINOPHILS 1.8 % (0-7); HEMATOCRIT 23.9 % (36.0-48.0); HEMOGLOBIN 7.8 g/dL (12-16); IMMATURE GRANULOCYTES 0.1 % (0-5); LYMPHOCYTES 21.5 % (15-50); MCH 29.7 pg (26.0-34.0); MCHC 32.6 g/dL (31.0-37.0); MCV 90.9 fL (80.0-100.0); MEAN PLATELET VOLUME 9.9 fL (7.4-10.4); MONOCYTES 12.4 % (2-11); NEUTROPHILS 64.1 % (40-80); PLATELET COUNT 163 10x3/uL (130-400); RBC 2.63 10x6/uL (4.00-5.40); RDW 16.1 % (11.5-14.5); WBC 8.4 10x3/uL (4.8-10.8)
[2018-09-07 05:59] LABS: ANION GAP 13.7 mmol/L (8-16); CARBON DIOXIDE 24.9 mmol/L (21.0-32.0); CREATININE - SERUM 0.9 mg/dL (0.6-1.3); POTASSIUM - SERUM 4.6 mmol/L (3.5-5.1)
[2018-09-07 09:17] LABS: FOLATE (FOLIC ACID) - SERUM 7.7 ng/mL (>3.0)
--- NOTE | 2018-09-07 15:47 | OP ---
PATIENT NAME: MARIAM THAYER MEDICAL RECORD: [id number] :50 [facility] ADMISSION DATE:09/04/18 SURGEON: MIL MOORE MD DATE OF OPERATION: 09/04/2018 SURGEON: Mil Moore MD SUPERVISOR LEAF SPRING FABRICATION: ROB You MD and Blake Parson. OPERATION PERFORMED: Right carotid endarterectomy. PREOPERATIVE DIAGNOSIS: Bilateral carotid stenosis. POSTOPERATIVE DIAGNOSIS: Bilateral carotid stenosis. ANESTHESIA: General endotracheal anesthesia. ESTIMATED BLOOD LOSS: 30 cc. COMPLICATIONS: None. SPECIMEN: Plaque. CONDITION: Stable. DISPOSITION: CV ICU. OPERATIVE FINDINGS: 1. Long irregular calcified plaque feathered well distally extended some distance down the common along the anterior and medial wall requiring an eversion endarterectomy of the common carotid and a long CorMatrix patch. 2. Neurologically intact to CV ICU. OPERATIVE INDICATION: Bilateral carotid stenosis. OPERATIVE PROCEDURE IN DETAIL: The patient was brought to the operative suite. General anesthesia was obtained. The patient was prepped and draped. An oblique incision made in the right neck, taken down through subcutaneous tissue and muscle. The common carotid artery was dissected out and encircled with a vessel loop. External carotid artery branch was dissected out and encircled with vessel loop. The hypoglossal nerve was retracted upwardly. The ascending branch of the external carotid was identified and tied to allow exposure of the distal internal carotid. The artery was dissected out more distally to a relatively soft portion of the artery. Then, heparin was given. After the heparin was given, the back bleeding was controlled with a bulldog clamp and inflow with a vascular clamp and the external carotid artery branches controlled with vessel loops. EEG was monitored for 2 minutes as well as cerebral oximetry. Arteriotomy was begun. The common carotid artery taken out to the region of dense calcification into relatively normal region of the internal carotid. Eversion endarterectomy of the common carotid was performed. Eversion endarterectomy of the external carotid. The plaque feathered well distally. The distal part of the arteriotomy was extended to allow good visualization. Thorough irrigation was undertaken. All bits of loose debris were removed. A CorMatrix patch was fashioned to the appropriate size and sutured along the edge of the arteriotomy and prior to completing the anastomosis, backbleeding was OPERATIVE REPORT [id number] MARIAM THAYER allowed from all 3 major vessels. Then, thorough irrigation again of the endarterectomy bed was performed. Anastomosis completed. Flow restored, first to the external carotid and then to the internal carotid. The interrupted patch sutures were used for hemostasis. A drain was placed through a separate stab wound. Bleeding from the stab wound was noted. It was opened to a 2 cm size and a 6-0 Prolene placed in the external jugular vein. The separate stab wound was placed. A drain was placed. Hemostasis was ensured. The wound was closed in 3 layers including Dermabond on the skin. Anesthesia reversed. The patient neurologically intact to CV ICU. Dr. You was the assistant director of public works surgeon for this procedure. He participated in exposure of the distal internal carotid, preservation of the nerves, clamping and unclamping, and endarterectomy. He participated in decision making during the procedure. TRANSINT:[id number] Voice Confirmation ID: [id number] DOCUMENT ID: [id number] MIL MOORE MD at 1547 CC: SPRING BOYD MD [id number] DICTATION DATE: 09/04/18 1600 STEAM AND POWER SUPERVISOR: 09/05/18 0001 ADM IN [facility] [address] [place] [address]
--- NOTE | 2018-09-07 15:48 | OP ---
PATIENT NAME: MARIAM THAYER MEDICAL RECORD: [id number] :[birth year] LOCATION:[facility] RicoCV05 ADMISSION DATE:09/04/18 SURGEON: KAITLYN MOORE MD DATE OF OPERATION: 09/04/2018 ADDENDUM The assistant oceanographer surgeon for this procedure was Dr. Edy You. The assistant oceanographer surgeon helped with the endarterectomy, particularly the proximal extension, and the shaping and sewing of the patch, concurred with the limits of the endarterectomy and plan for repair. TRANSINT:[id number] Voice Confirmation ID: [id number] DOCUMENT ID: [id number] KAITLYN MOORE MD at 1548 CC: [id number] DICTATION DATE: 09/06/18 1347 TRAINING AND DEVELOPMENT REP: 09/06/18 1439 ADM IN [facility] [address] [place] [id number]
[2018-09-08] VITALS (46 sets, daily range): BP systolic 106–170; BP diastolic 42–88
[2018-09-08 01:09] LABS: BASOPHILS 0.1 % (0-2); EOSINOPHILS 1.1 % (0-7); HEMATOCRIT 24.9 % (36.0-48.0); HEMOGLOBIN 8.1 g/dL (12-16); IMMATURE GRANULOCYTES 0.2 % (0-5); LYMPHOCYTES 23.5 % (15-50); MCH 29.2 pg (26.0-34.0); MCHC 32.5 g/dL (31.0-37.0); MCV 89.9 fL (80.0-100.0); MEAN PLATELET VOLUME 9.9 fL (7.4-10.4); MONOCYTES 12.7 % (2-11); NEUTROPHILS 62.4 % (40-80); PLATELET COUNT 180 10x3/uL (130-400); RBC 2.77 10x6/uL (4.00-5.40); RDW 15.8 % (11.5-14.5); WBC 10.3 10x3/uL (4.8-10.8)
[2018-09-08 01:23] LABS: ALBUMIN 2.8 g/dL (3.4-5.0); ALKALINE PHOSPHATASE 67 U/L (46-116); BILIRUBIN - TOTAL 0.34 mg/dL (0.2-1.3); CALC OSMOLALITY 275 mosm/kg (275-300); CALCIUM 9.3 mg/dL (8.5-10.1); CARBON DIOXIDE 25.7 mmol/L (21.0-32.0); CHLORIDE - SERUM 103 mmol/L (98-107); CREATININE - SERUM 0.8 mg/dL (0.6-1.3); GLUCOSE 104 mg/dL (74-106); POTASSIUM - SERUM 4.5 mmol/L (3.5-5.1); PROTEIN - SERUM 7.6 g/dL (6.4-8.2); SODIUM 138 mmol/L (136-145); UREA NITROGEN 12 mg/dL (7-18); eGFR NON AFRICAN AMERICAN 76 mL/min (90-120)
[2018-09-08 01:24] LABS: ALT (SGPT) 10 U/L (10-68)
[2018-09-09] VITALS (25 sets, daily range): BP systolic 131–168; BP diastolic 55–112
[2018-09-09 05:50] LABS: BASOPHILS 0 % (0-2); EOSINOPHILS 0 % (0-7); HEMATOCRIT 23.3 % (36.0-48.0); HEMOGLOBIN 7.9 g/dL (12-16); IMMATURE GRANULOCYTES 0.2 % (0-5); LYMPHOCYTES 14.9 % (15-50); MCH 30.5 pg (26.0-34.0); MCHC 33.9 g/dL (31.0-37.0); MEAN PLATELET VOLUME 10.5 fL (7.4-10.4); MONOCYTES 4.4 % (2-11); NEUTROPHILS 80.5 % (40-80); PLATELET COUNT 200 10x3/uL (130-400); RBC 2.59 10x6/uL (4.00-5.40); RDW 15.3 % (11.5-14.5)
[2018-09-09 05:56] LABS: WBC 6.1 10x3/uL (4.8-10.8)
[2018-09-09 06:20] LABS: CALC OSMOLALITY 272 mosm/kg (275-300); CALCIUM 9.5 mg/dL (8.5-10.1); CARBON DIOXIDE 24.6 mmol/L (21.0-32.0); CHLORIDE - SERUM 100 mmol/L (98-107); CREATININE - SERUM 0.8 mg/dL (0.6-1.3); GLUCOSE 121 mg/dL (74-106); POTASSIUM - SERUM 4.7 mmol/L (3.5-5.1); SODIUM 134 mmol/L (136-145); eGFR NON AFRICAN AMERICAN 76 mL/min (90-120)
[2018-09-09 06:21] LABS: UREA NITROGEN 24 mg/dL (7-18)
[2018-09-10] VITALS (23 sets, daily range): BP systolic 133–159; BP diastolic 49–98
[2018-09-10 06:52] LABS: ANION GAP 17.4 mmol/L (8-16); CALCIUM 9.5 mg/dL (8.5-10.1); CARBON DIOXIDE 22.1 mmol/L (21.0-32.0); POTASSIUM - SERUM 4.5 mmol/L (3.5-5.1)
[2018-09-10 06:58] LABS: CREATININE - SERUM 1.2 mg/dL (0.6-1.3)
[2018-09-10 07:09] LABS: BASOPHILS 0 % (0-2); EOSINOPHILS 0 % (0-7); IMMATURE GRANULOCYTES 0.2 % (0-5); MCH 29.7 pg (26.0-34.0); MCHC 33.5 g/dL (31.0-37.0); MCV 88.6 fL (80.0-100.0); MEAN PLATELET VOLUME 9.8 fL (7.4-10.4); MONOCYTES 4.9 % (2-11); NEUTROPHILS 84.9 % (40-80); PLATELET COUNT 233 10x3/uL (130-400); RBC 2.19 10x6/uL (4.00-5.40); RDW 15.1 % (11.5-14.5); WBC 9.3 10x3/uL (4.8-10.8)
[2018-09-10 07:10] LABS: HEMATOCRIT 19.4 % (36.0-48.0); HEMOGLOBIN 6.5 g/dL (12-16)
[2018-09-11] VITALS (23 sets, daily range): BP systolic 121–157; BP diastolic 55–80
[2018-09-11 06:26] LABS: ANION GAP 14.6 mmol/L (8-16); CALCIUM 8.9 mg/dL (8.5-10.1); CARBON DIOXIDE 23.9 mmol/L (21.0-32.0); CREATININE - SERUM 1.3 mg/dL (0.6-1.3); POTASSIUM - SERUM 4.5 mmol/L (3.5-5.1)
[2018-09-11 07:04] LABS: BASOPHILS 0 % (0-2); EOSINOPHILS 0 % (0-7); IMMATURE GRANULOCYTES 0.5 % (0-5); LYMPHOCYTES 10.8 % (15-50); MCH 28.7 pg (26.0-34.0); MCHC 34.4 g/dL (31.0-37.0); MEAN PLATELET VOLUME 10.1 fL (7.4-10.4); MONOCYTES 7.8 % (2-11); NEUTROPHILS 80.9 % (40-80); PLATELET COUNT 207 10x3/uL (130-400); RDW 18.4 % (11.5-14.5); WBC 7.9 10x3/uL (4.8-10.8)
[2018-09-11 07:08] LABS: MCV 83.3 fL (80.0-100.0); RBC 4.32 10x6/uL (4.00-5.40)
[2018-09-11 07:09] LABS: HEMOGLOBIN 12.4 g/dL (12-16)
[2018-09-12] VITALS (25 sets, daily range): BP systolic 101–179; BP diastolic 58–107
[2018-09-12 08:28] LABS: BASOPHILS 0.1 % (0-2); EOSINOPHILS 0 % (0-7); HEMATOCRIT 37.4 % (36.0-48.0); HEMOGLOBIN 12.7 g/dL (12-16); IMMATURE GRANULOCYTES 0.7 % (0-5); LYMPHOCYTES 17.4 % (15-50); MCH 28.7 pg (26.0-34.0); MCV 84.4 fL (80.0-100.0); MEAN PLATELET VOLUME 10.9 fL (7.4-10.4); MONOCYTES 18.6 % (2-11); NEUTROPHILS 63.2 % (40-80); PLATELET COUNT 224 10x3/uL (130-400); RBC 4.43 10x6/uL (4.00-5.40); RDW 18.2 % (11.5-14.5)
[2018-09-12 08:29] LABS: WBC 10.4 10x3/uL (4.8-10.8)
[2018-09-12 08:38] LABS: ALBUMIN 3.4 g/dL (3.4-5.0); ANION GAP 16.2 mmol/L (8-16); BILIRUBIN - TOTAL 0.23 mg/dL (0.2-1.3); CALCIUM 9.3 mg/dL (8.5-10.1); CARBON DIOXIDE 25.9 mmol/L (21.0-32.0); CREATININE - SERUM 1.3 mg/dL (0.6-1.3); POTASSIUM - SERUM 4.1 mmol/L (3.5-5.1); PROTEIN - SERUM 8.4 g/dL (6.4-8.2)
[2018-09-13] VITALS (41 sets, daily range): BP systolic 83–210; BP diastolic 46–104
[2018-09-13 05:06] LABS: BASOPHILS 0 % (0-2); EOSINOPHILS 0 % (0-7); HEMOGLOBIN 12.2 g/dL (12-16); IMMATURE GRANULOCYTES 0.6 % (0-5); LYMPHOCYTES 10.4 % (15-50); MCH 28.8 pg (26.0-34.0); MCHC 33.9 g/dL (31.0-37.0); MCV 84.9 fL (80.0-100.0); MEAN PLATELET VOLUME 10.3 fL (7.4-10.4); MONOCYTES 6.9 % (2-11); NEUTROPHILS 82.1 % (40-80); PLATELET COUNT 198 10x3/uL (130-400); RBC 4.24 10x6/uL (4.00-5.40); RDW 17.8 % (11.5-14.5); WBC 8.1 10x3/uL (4.8-10.8)
[2018-09-13 05:24] LABS: ALBUMIN 3.1 g/dL (3.4-5.0); ANION GAP 15.8 mmol/L (8-16); BILIRUBIN - TOTAL 0.29 mg/dL (0.2-1.3); CALCIUM 8.9 mg/dL (8.5-10.1); CARBON DIOXIDE 26.8 mmol/L (21.0-32.0); CREATININE - SERUM 1.2 mg/dL (0.6-1.3); POTASSIUM - SERUM 4.6 mmol/L (3.5-5.1); PROTEIN - SERUM 7.5 g/dL (6.4-8.2)
[2018-09-14] VITALS (24 sets, daily range): BP systolic 89–154; BP diastolic 43–91
[2018-09-14 06:09] LABS: BASOPHILS 0 % (0-2); EOSINOPHILS 0.2 % (0-7); HEMATOCRIT 31.7 % (36.0-48.0); HEMOGLOBIN 10.6 g/dL (12-16); IMMATURE GRANULOCYTES 0.3 % (0-5); LYMPHOCYTES 11.8 % (15-50); MCH 28.3 pg (26.0-34.0); MCHC 33.4 g/dL (31.0-37.0); MCV 84.5 fL (80.0-100.0); MEAN PLATELET VOLUME 10.7 fL (7.4-10.4); MONOCYTES 9.3 % (2-11); NEUTROPHILS 78.4 % (40-80); PLATELET COUNT 177 10x3/uL (130-400); RBC 3.75 10x6/uL (4.00-5.40); RDW 17.4 % (11.5-14.5)
[2018-09-14 06:31] LABS: ALBUMIN 2.7 g/dL (3.4-5.0); ANION GAP 15.5 mmol/L (8-16); BILIRUBIN - TOTAL 0.38 mg/dL (0.2-1.3); CALCIUM 8.4 mg/dL (8.5-10.1); CARBON DIOXIDE 27.1 mmol/L (21.0-32.0); CREATININE - SERUM 1.3 mg/dL (0.6-1.3); PROTEIN - SERUM 6.7 g/dL (6.4-8.2)
[2018-09-14 06:33] LABS: POTASSIUM - SERUM 3.6 mmol/L (3.5-5.1); WBC 11.5 10x3/uL (4.8-10.8)
[2018-09-15] VITALS (24 sets, daily range): BP systolic 123–164; BP diastolic 49–75
[2018-09-15 05:50] LABS: BASOPHILS 0.1 % (0-2); EOSINOPHILS 0.5 % (0-7); HEMATOCRIT 35.6 % (36.0-48.0); HEMOGLOBIN 11.7 g/dL (12-16); IMMATURE GRANULOCYTES 0.4 % (0-5); LYMPHOCYTES 12.7 % (15-50); MCH 28.2 pg (26.0-34.0); MCHC 32.9 g/dL (31.0-37.0); MCV 85.8 fL (80.0-100.0); MEAN PLATELET VOLUME 10.3 fL (7.4-10.4); MONOCYTES 9.5 % (2-11); NEUTROPHILS 76.8 % (40-80); PLATELET COUNT 171 10x3/uL (130-400); RBC 4.15 10x6/uL (4.00-5.40); RDW 17.2 % (11.5-14.5); WBC 16.6 10x3/uL (4.8-10.8)
[2018-09-15 06:09] LABS: ALBUMIN 2.8 g/dL (3.4-5.0); ANION GAP 16.7 mmol/L (8-16); BILIRUBIN - TOTAL 0.56 mg/dL (0.2-1.3); CALCIUM 8.8 mg/dL (8.5-10.1); CARBON DIOXIDE 25.7 mmol/L (21.0-32.0); CREATININE - SERUM 1.2 mg/dL (0.6-1.3); POTASSIUM - SERUM 3.4 mmol/L (3.5-5.1); PROTEIN - SERUM 7.5 g/dL (6.4-8.2)
[2018-09-16] VITALS (21 sets, daily range): BP systolic 125–162; BP diastolic 50–108
[2018-09-16 06:23] LABS: BASOPHILS 0.1 % (0-2); EOSINOPHILS 2.3 % (0-7); HEMATOCRIT 37.7 % (36.0-48.0); HEMOGLOBIN 12.3 g/dL (12-16); IMMATURE GRANULOCYTES 0.3 % (0-5); LYMPHOCYTES 11.2 % (15-50); MCH 28.2 pg (26.0-34.0); MCHC 32.6 g/dL (31.0-37.0); MCV 86.5 fL (80.0-100.0); MEAN PLATELET VOLUME 10.4 fL (7.4-10.4); MONOCYTES 8.5 % (2-11); NEUTROPHILS 77.6 % (40-80); PLATELET COUNT 164 10x3/uL (130-400); RBC 4.36 10x6/uL (4.00-5.40); RDW 17.1 % (11.5-14.5); WBC 12.9 10x3/uL (4.8-10.8)
[2018-09-16 06:35] LABS: ALBUMIN 2.7 g/dL (3.4-5.0); ANION GAP 16.2 mmol/L (8-16); BILIRUBIN - TOTAL 0.31 mg/dL (0.2-1.3); CALCIUM 8.9 mg/dL (8.5-10.1); CARBON DIOXIDE 25.4 mmol/L (21.0-32.0); CREATININE - SERUM 1.4 mg/dL (0.6-1.3); POTASSIUM - SERUM 3.6 mmol/L (3.5-5.1); PROTEIN - SERUM 7.7 g/dL (6.4-8.2)
[2018-09-17] VITALS (19 sets, daily range): BP systolic 133–157; BP diastolic 53–77; Ht 162.6 cm; Wt 50.1 kg
[2018-09-17 07:19] LABS: BASOPHILS 0 % (0-2); EOSINOPHILS 4.4 % (0-7); HEMATOCRIT 36.2 % (36.0-48.0); HEMOGLOBIN 11.9 g/dL (12-16); IMMATURE GRANULOCYTES 0.3 % (0-5); LYMPHOCYTES 10.5 % (15-50); MCH 28.5 pg (26.0-34.0); MCHC 32.9 g/dL (31.0-37.0); MCV 86.6 fL (80.0-100.0); MEAN PLATELET VOLUME 10.9 fL (7.4-10.4); MONOCYTES 9.9 % (2-11); NEUTROPHILS 74.9 % (40-80); PLATELET COUNT 184 10x3/uL (130-400); RBC 4.18 10x6/uL (4.00-5.40); RDW 17.2 % (11.5-14.5); WBC 11.5 10x3/uL (4.8-10.8)
[2018-09-17 07:39] LABS: ALBUMIN 2.6 g/dL (3.4-5.0); ANION GAP 11.3 mmol/L (8-16); BILIRUBIN - TOTAL 0.32 mg/dL (0.2-1.3); CALCIUM 8.9 mg/dL (8.5-10.1); CARBON DIOXIDE 29.4 mmol/L (21.0-32.0); CREATININE - SERUM 1.3 mg/dL (0.6-1.3); POTASSIUM - SERUM 3.7 mmol/L (3.5-5.1); PROTEIN - SERUM 7.6 g/dL (6.4-8.2)
[2018-09-17 13:56] LABS: APPEARANCE SL CLDY (CLEAR); BACTERIA MANY /hpf (NONE SEEN); BILIRUBIN NEGATIVE (NEGATIVE); COLOR YELLOW (YELLOW); EPITHELIAL CELLS 0-5 /hpf (0-5); GLUCOSE NEGATIVE (NEGATIVE); KETONE NEGATIVE (NEGATIVE); MUCUS <1+ /lpf (NONE SEEN); NITRITE NEGATIVE (NEGATIVE); PROTEIN NEGATIVE (NEGATIVE); SPECIFIC GRAVITY 1.005 (1.005-1.020); UROBILINOGEN NORMAL (NORMAL)
[2018-09-18] VITALS (28 sets, daily range): BP systolic 107–171; BP diastolic 49–78
[2018-09-18 09:14] LABS: BASOPHILS 0.1 % (0-2); EOSINOPHILS 2.3 % (0-7); HEMATOCRIT 33.5 % (36.0-48.0); IMMATURE GRANULOCYTES 0.3 % (0-5); LYMPHOCYTES 10.6 % (15-50); MCH 28.4 pg (26.0-34.0); MCHC 32.8 g/dL (31.0-37.0); MCV 86.6 fL (80.0-100.0); MEAN PLATELET VOLUME 10.8 fL (7.4-10.4); MONOCYTES 9.6 % (2-11); NEUTROPHILS 77.1 % (40-80); PLATELET COUNT 180 10x3/uL (130-400); RBC 3.87 10x6/uL (4.00-5.40)
[2018-09-18 09:20] LABS: ANION GAP 12.2 mmol/L (8-16); CALCIUM 8.8 mg/dL (8.5-10.1); CARBON DIOXIDE 27.9 mmol/L (21.0-32.0); POTASSIUM - SERUM 4.1 mmol/L (3.5-5.1)
[2018-09-18 09:32] LABS: WBC 15.5 10x3/uL (4.8-10.8)
--- NOTE | 2018-09-18 15:10 | OP ---
PATIENT NAME: MARIAM THAYER MEDICAL RECORD: [id number] :[birth year] LOCATION:D[facility]ESE GOVEA05 ADMISSION DATE:09/04/18 SURGEON: JADEN HAWTHORNE MD DATE OF OPERATION: 09/18/2018 PREOPERATIVE DIAGNOSES: 1. Dysphagia. 2. Carotid artery disease. 3. Hypertension. 4. Coronary artery disease. POSTOPERATIVE DIAGNOSES: 1. Dysphagia. 2. Carotid artery disease. 3. Hypertension. 4. Coronary artery disease. PROCEDURE IN DETAIL: PEG tube placement. SURGEON: Jaden Hawthorne MD REPORT OF PROCEDURE: The patient was given adequate anesthesia and an Olympus endoscope was advanced through the mouth and esophagus. Once we entered the stomach, then an area was found on the left upper quadrant to house our PEG tube. A total of 5 cc of 1% lidocaine with epinephrine was infused into the surrounding tissues. A skin incision was then made with an 11 blade and an Angiocath needle was pushed through the skin and subcutaneous tissues into the lumen of the stomach. A wire was advanced through and this was grasped. This wire was pulled through the mouth and esophagus and affixed to the PEG tube. With the PEG tube was affixed to the wire, these structures were pulled through the mouth and esophagus and through the gastric wall until it rested in good position at the skin at 3 cm. The endoscope was advanced through the mouth and esophagus once again into the stomach and we could see the area where the PEG tube was positioned and saw there was no sign of any bleeding. At this point, the insufflation was removed and the scope was taken out. COMPLICATIONS: None. CONDITION: Stable. ANESTHESIA: TIVA. BLOOD LOSS: Minimal. Procedure done in the ICU at the bedside. TRANSINT:[id number] Voice Confirmation ID: [id number] DOCUMENT ID: [id number] OPERATIVE REPORT [id number] FLACAMARIAM Phani JADEN HAWTHORNE MD at 4061 CC: [id number] DICTATION DATE: 09/18/18 1425 HEMATOLOGY TECHNOLOGIST: 09/18/18 1456 ADM IN [facility] [address] [place] [address]
[2018-09-19] VITALS (20 sets, daily range): BP systolic 108–164; BP diastolic 49–77
[2018-09-20] VITALS (10 sets, daily range): BP systolic 118–161; BP diastolic 23–94
[2018-09-21] VITALS (23 sets, daily range): BP systolic 121–168; BP diastolic 50–69
[2018-09-21 06:49] LABS: ANION GAP 15.9 mmol/L (8-16); CALCIUM 8.1 mg/dL (8.5-10.1); CARBON DIOXIDE 21.7 mmol/L (21.0-32.0); POTASSIUM - SERUM 3.6 mmol/L (3.5-5.1)
[2018-09-21 06:53] LABS: BASOPHILS 0.1 % (0-2); EOSINOPHILS 0.8 % (0-7); HEMATOCRIT 28.1 % (36.0-48.0); HEMOGLOBIN 9.3 g/dL (12-16); IMMATURE GRANULOCYTES 0.4 % (0-5); LYMPHOCYTES 9.8 % (15-50); MCH 28.6 pg (26.0-34.0); MCHC 33.1 g/dL (31.0-37.0); MCV 86.5 fL (80.0-100.0); MEAN PLATELET VOLUME 11.6 fL (7.4-10.4); MONOCYTES 8.6 % (2-11); NEUTROPHILS 80.3 % (40-80); RBC 3.25 10x6/uL (4.00-5.40); RDW 17.1 % (11.5-14.5); WBC 16.7 10x3/uL (4.8-10.8)
[2018-09-21 06:57] LABS: PLATELET COUNT 219 10x3/uL (130-400)
--- NOTE | 2018-09-21 07:11 | MORECARE ---
CASE MANAGEMENT DISCHARGE SUMMARY PATIENT: MARIAM THAYER UNIT: [id number] ADM DATE: 09/04/18 AGE: 68 : 50 SEX: F ROOM/BED: [facility] AUTHOR: CHERYL,DOC PHYSICIAN: REFERRING PHYSICIAN: KAITLYN MOORE MD DATE OF SERVICE: 09/21/18 Discharge Plan Patient Name: MARIAM THAYER Facility: [facility]:[place] : 1950 Planned Disposition: Inpatient Rehab Anticipated Discharge Date: Discharge Date: Expected LOS: Initial Reviewer: [email or web address] Initial Review Date: 09/04/2018 Generated: 09/21/18 8:11 am Comments DCP- Discharge Planning Updated by [email or web address]: Aleah Sprague on 09/06/18 4:[address] Patient Name: MARIAM THAYER Admission Status: Elective Accout number: [id number] Admission Date: 09-04-2018 : 1950 Admission Diagnosis:OCCLUSION AND STENOSIS OF BILATERAL CAROTID ARTERIES Attending: KAITLYN MOORE Current LOS: 2 Anticipated DC Date: Planned Disposition: Home Primary Insurance: [employer] MEDICARE ADV Discharge Planning Comments: CM met with patient at bedside about discharge planning / needs. Patient states she lives alone. Patient states she plans to discharge to her home. States she will have family transport her home upon discharge. Denies need for home health or other community resource needs. States home environment is safe. Denies any discharge needs or concerns at this time. CM will continue to follow and assist as needed with discharge planning / needs. Automotive Designer: Aleah Sprague DCPIA - Discharge Planning Initial Assessment Updated by [email or web address]: Aleah Sprague on 09/06/18 6:26 pm * Is the patient Alert and Oriented? Yes * How many steps to enter\exit or inside your home? 12 * PCP juliette * Pharmacy [facility] * Preadmission Environment Home Alone * ADLs Independent * Equipment Walker * Other Equipment cane * List name and contact numbers for known caregivers / representatives who currently or will assist patient after discharge: tia thayer [phone] * Verbal permission to speak to the caregivers and representatives has been obtained from the patient. N/A * Community resources currently utilized None * Additional services required to return to the preadmission environment? No * Can the patient safely return to the preadmission environment? Yes * Has this patient been hospitalized within the prior 30 days at any hospital? No Last DP export: 09/06/18 4:28 p Patient Name: MARIAM THAYER Page [phone] at 0711 All edits/amendments must be made on the electronic document DICTATION DATE: 09/21/18709 MILK DRIER: DM 09/21/18709 RPT#: [id number] DC DATE: STATUS: ADM IN [facility] [address] [place] [address] END OF REPORT
--- NOTE | 2018-09-21 07:17 | MORECARE ---
CASE MANAGEMENT DISCHARGE SUMMARY PATIENT: MARIAM THAYER UNIT: [id number] ADM DATE: 09/04/18 AGE: 68 : 50 SEX: F ROOM/BED: [facility] AUTHOR: JHONNY LUNA PHYSICIAN: REFERRING PHYSICIAN: KAITLYN MOORE MD DATE OF SERVICE: 09/21/18 Discharge Plan Patient Name: MARIAM THAYER [facility] [facility] 1950 Planned Disposition: Inpatient Rehab Anticipated Discharge Date: Discharge Date: Expected LOS: Initial Reviewer: [id number] Initial Review Date: 09/04/2018 Generated: 09/21/18 8:17 am Comments DCP- Discharge Planning Updated by [id number]: Abelardo Morse on 09/21/18 6:[address] Patient Name: MARIAM THAYER Encounter No: [id number] : 1950 Primary Insurance: [facility] MEDICARE ADV Anticipated DC Date: Planned Disposition: Inpatient Rehab External Planned Provider: [facility] INPATIENT REHAB LATE ENTRY FROM 09-20-18, 1510 HOURS: DCP follow-up note: CM RECEIVED EMAIL FROM DONNA SPRAGUE INFORMING CM THAT PT HAS BEEN ACCEPTED FOR INPATIENT REHAB WHEN MEDICALLY STABLE. WHEN STABLE, NOTIFY [facility] INPATIENT REHAB. DARA Molina DCP- Discharge Planning Updated by [email or web address]: Aleah Sprague on 09/06/18 4:[address] Patient Name: MARIAM THAYER Admission Status: Elective Accout number: [id number] Admission Date: 09-04-2018 : 1950 Admission Diagnosis:OCCLUSION AND STENOSIS OF BILATERAL CAROTID ARTERIES Attending: KAITLYN MOORE Current LOS: 2 Anticipated DC Date: Planned Disposition: Home Primary Insurance: [employer] ADV Discharge Planning Comments: CM met with patient at bedside about discharge planning / needs. Patient states she lives alone. Patient states she plans to discharge to her home. States she will have family transport her home upon discharge. Denies need for home health or other community resource needs. States home environment is safe. Denies any discharge needs or concerns at this time. CM will continue to follow and assist as needed with discharge planning / needs. Patient Scheduling Coordinator: Aleah Darcie DCPIA - Discharge Planning Initial Assessment Updated by [id number]: Aleah Sprague on 09/06/18 6:26 pm * Is the patient Alert and Oriented? Yes * How many steps to enter\exit or inside your home? 12 * PCP juliette * Pharmacy [facility] * Preadmission Environment Home Alone * ADLs Independent * Equipment Walker * Other Equipment cane * List name and contact numbers for known caregivers / representatives who currently or will assist patient after discharge: tia thayer son-[phone] * Verbal permission to speak to the caregivers and representatives has been obtained from the patient. N/A * Community resources currently utilized None * Additional services required to return to the preadmission environment? No * Can the patient safely return to the preadmission environment? Yes * Has this patient been hospitalized within the prior 30 days at any hospital? No Last DP export: 09/21/18 6:11 a Patient Name: MARIAM THAYER Page 27003 at 0717 All edits/amendments must be made on the electronic document DICTATION DATE: 09/21/18716 PATIENT SERVICE REPRESENTATIVE: KWAME 09/21/18716 RPT#: [id number] DC DATE: STATUS: ADM IN [facility] [address] [place] [address] END OF REPORT
[2018-09-21 20:24] LABS: EOS BF 1 %; MACROPHAGES BF 2 %; NEUT - BF 93 %
[2018-09-21 20:34] LABS: BASOPHILS 0.1 % (0-2); EOSINOPHILS 0.8 % (0-7); HEMATOCRIT 26.5 % (36.0-48.0); HEMOGLOBIN 8.6 g/dL (12-16); IMMATURE GRANULOCYTES 0.3 % (0-5); LYMPHOCYTES 13.4 % (15-50); MCHC 32.5 g/dL (31.0-37.0); MCV 86.3 fL (80.0-100.0); MEAN PLATELET VOLUME 10.4 fL (7.4-10.4); MONOCYTES 6.8 % (2-11); NEUTROPHILS 78.6 % (40-80); PLATELET COUNT 238 10x3/uL (130-400); RBC 3.07 10x6/uL (4.00-5.40); RDW 17.1 % (11.5-14.5)
[2018-09-21 20:35] LABS: WBC 12.3 10x3/uL (4.8-10.8)
[2018-09-21 21:36] LABS: ERYTHROCYTE SEDIMENTATION RATE 110 mm/hr (0-30)
[2018-09-22] VITALS (22 sets, daily range): BP systolic 101–151; BP diastolic 44–68
[2018-09-23] VITALS (30 sets, daily range): BP systolic 118–143; BP diastolic 44–67
[2018-09-23 05:59] LABS: BASOPHILS 0.1 % (0-2); HEMOGLOBIN 7.9 g/dL (12-16); IMMATURE GRANULOCYTES 0.3 % (0-5); LYMPHOCYTES 12.5 % (15-50); MCH 28.1 pg (26.0-34.0); MCHC 32.9 g/dL (31.0-37.0); MCV 85.4 fL (80.0-100.0); MEAN PLATELET VOLUME 10.5 fL (7.4-10.4); MONOCYTES 7.3 % (2-11); NEUTROPHILS 77.8 % (40-80); RBC 2.81 10x6/uL (4.00-5.40); RDW 17.3 % (11.5-14.5); WBC 10.7 10x3/uL (4.8-10.8)
[2018-09-23 06:09] LABS: PLATELET COUNT 305 10x3/uL (130-400)
[2018-09-23 06:30] LABS: ANION GAP 14.4 mmol/L (8-16); CALCIUM 8.2 mg/dL (8.5-10.1); CARBON DIOXIDE 22.9 mmol/L (21.0-32.0); CREATININE - SERUM 1.1 mg/dL (0.6-1.3); POTASSIUM - SERUM 3.3 mmol/L (3.5-5.1); VANCOMYCIN - TROUGH 26.1 ug/mL (10.0-20.0)
[2018-09-23 14:45] LABS: APPEARANCE CLOUDY (CLEAR); COLOR YELLOW (YELLOW)
[2018-09-23 14:46] LABS: BILIRUBIN NEGATIVE (NEGATIVE); GLUCOSE NEGATIVE (NEGATIVE); KETONE NEGATIVE (NEGATIVE); NITRITE NEGATIVE (NEGATIVE); PROTEIN 1+ mg/dL (NEGATIVE); UROBILINOGEN NORMAL (NORMAL)
[2018-09-23 14:55] LABS: RED CELLS - URINE 0-5 /hpf (0-5); WHITE CELLS - URINE 0-5 /hpf (0-5)
[2018-09-23 14:56] LABS: AMORPHOUS SEDIMENT <1+ /lpf (NONE SEEN); BACTERIA MODERATE /hpf (NONE SEEN)
[2018-09-24] VITALS (24 sets, daily range): BP systolic 111–162; BP diastolic 40–70
[2018-09-24 04:54] LABS: BASOPHILS 0.1 % (0-2); EOSINOPHILS 1.9 % (0-7); HEMATOCRIT 22.5 % (36.0-48.0); IMMATURE GRANULOCYTES 0.3 % (0-5); LYMPHOCYTES 13.4 % (15-50); MCH 28.3 pg (26.0-34.0); MCHC 33.3 g/dL (31.0-37.0); MCV 84.9 fL (80.0-100.0); MEAN PLATELET VOLUME 10.3 fL (7.4-10.4); MONOCYTES 6.4 % (2-11); NEUTROPHILS 77.9 % (40-80); PLATELET COUNT 319 10x3/uL (130-400); RBC 2.65 10x6/uL (4.00-5.40); RDW 17.3 % (11.5-14.5); WBC 10.9 10x3/uL (4.8-10.8)
[2018-09-24 05:04] LABS: ALBUMIN 1.6 g/dL (3.4-5.0); ANION GAP 16.4 mmol/L (8-16); BILIRUBIN - TOTAL 0.23 mg/dL (0.2-1.3); CARBON DIOXIDE 23.2 mmol/L (21.0-32.0); HEMOGLOBIN 7.5 g/dL (12-16); POTASSIUM - SERUM 3.6 mmol/L (3.5-5.1); PROTEIN - SERUM 5.6 g/dL (6.4-8.2)
[2018-09-25] VITALS (24 sets, daily range): BP systolic 104–147; BP diastolic 48–69
[2018-09-25 05:05] LABS: BASOPHILS 0.2 % (0-2); EOSINOPHILS 1.9 % (0-7); IMMATURE GRANULOCYTES 0.2 % (0-5); LYMPHOCYTES 18.3 % (15-50); MCH 28.3 pg (26.0-34.0); MCHC 34.8 g/dL (31.0-37.0); MEAN PLATELET VOLUME 10.4 fL (7.4-10.4); MONOCYTES 9.1 % (2-11); NEUTROPHILS 70.3 % (40-80); PLATELET COUNT 305 10x3/uL (130-400); RDW 17.9 % (11.5-14.5); WBC 9.1 10x3/uL (4.8-10.8)
[2018-09-25 05:11] LABS: HEMATOCRIT 29.3 % (36.0-48.0); HEMOGLOBIN 10.2 g/dL (12-16); MCV 81.4 fL (80.0-100.0)
[2018-09-25 05:25] LABS: ANION GAP 12.8 mmol/L (8-16); CALCIUM 8.2 mg/dL (8.5-10.1); CARBON DIOXIDE 25.5 mmol/L (21.0-32.0); POTASSIUM - SERUM 3.3 mmol/L (3.5-5.1)
[2018-09-26] VITALS (10 sets, daily range): BP systolic 132–161; BP diastolic 56–72
[2018-09-26 04:06] LABS: BASOPHILS 0.1 % (0-2); EOSINOPHILS 1.6 % (0-7); HEMATOCRIT 29.5 % (36.0-48.0); HEMOGLOBIN 9.9 g/dL (12-16); IMMATURE GRANULOCYTES 0.5 % (0-5); LYMPHOCYTES 21.9 % (15-50); MCH 27.7 pg (26.0-34.0); MCHC 33.6 g/dL (31.0-37.0); MCV 82.4 fL (80.0-100.0); MEAN PLATELET VOLUME 9.9 fL (7.4-10.4); MONOCYTES 9.8 % (2-11); NEUTROPHILS 66.1 % (40-80); PLATELET COUNT 298 10x3/uL (130-400); RBC 3.58 10x6/uL (4.00-5.40); RDW 17.9 % (11.5-14.5); WBC 8.3 10x3/uL (4.8-10.8)
[2018-09-26 04:16] LABS: ANION GAP 13.8 mmol/L (8-16); CALCIUM 8.5 mg/dL (8.5-10.1); CARBON DIOXIDE 25.2 mmol/L (21.0-32.0); CREATININE - SERUM 0.9 mg/dL (0.6-1.3)
[2018-09-26] MEDS ORDERED: NORVASC10 MG PT (09:59)
[2018-09-26] MEDS ORDERED: LOPRESSOR25 MG PT (10:00)
[2018-09-26] MEDS ORDERED: CATAPRES TTS-10.1 MG TRANSDERM (10:01)
[2018-09-26] MEDS ORDERED: Tylenol PT (10:03)
[2018-09-26] MEDS ORDERED: DILANTIN 12525 MG/ML PEG (10:04)
[2018-09-26] MEDS ORDERED: Lortab Liquid PEG (10:04)
[2018-09-26] MEDS ORDERED: ASPIRIN81 MG PEG (10:04)
[2018-09-26] MEDS ORDERED: FLORAJEN3 CAPS460 MG PT (10:06)
[2018-09-26] MEDS ORDERED: Potassium Cl oral po PEG (10:06)
[2018-09-26] MEDS ORDERED: DULCOLAX10 MG/SUPP RC (10:06)
[2018-09-26] MEDS ORDERED: METOCLOPRAM5 MG/5 ML PT (10:07)
[2018-09-26] MEDS ORDERED: ZOFRAN PT (10:07)
[2018-09-26] MEDS ORDERED: MIRALAX17 GM PEG (10:08)
[2018-09-26] MEDS ORDERED: XOPENEX 0.0.63 MG/3 UPD (10:34)
[2018-09-26] MEDS ORDERED: ATROVENT 0.02%2.5 ML UPD (10:34)
--- NOTE | 2018-09-26 11:51 | MORECARE ---
CASE MANAGEMENT DISCHARGE SUMMARY PATIENT: MARIAM THAYER UNIT: [id number] ADM DATE: 09/04/18 AGE: 68 : 50 SEX: F ROOM/BED: [facility] AUTHOR: JHONNY LUNA PHYSICIAN: REFERRING PHYSICIAN: KAITLYN MOORE MD DATE OF SERVICE: 09/26/18 Discharge Plan Patient Name: MARIAM THAYER Facility: [facility]:[place] : 1950 Planned Disposition: Inpatient Rehab Anticipated Discharge Date: Discharge Date: Expected LOS: Initial Reviewer: [email or web address] Initial Review Date: 09/04/2018 Generated: 09/26/18 12:51 pm Comments DCP- Discharge Planning Updated by [id number]: Aleah Sprague on 09/26/18 10:[address] Patient Name: MARIAM THAYER Admission Status: Elective Accout number: [id number] Admission Date: 09-04-2018 : 1950 Admission Diagnosis:OCCLUSION AND STENOSIS OF BILATERAL CAROTID ARTERIES Attending: KAITLYN MOORE Current LOS: 22 Anticipated DC Date: Planned Disposition: Inpatient Rehab Primary Insurance: [employer] ADV Discharge Planning Comments: Patient will be admitted to inpatient Rehab @ [facility]. Patient and family agree to discharge plan. D/C IMM explained and served 09/26/18 @ 1042. CM will continue to follow and assist as needed with discharge planning / needs. Water Inspector: Aleah Sprague DCP- Discharge Planning Updated by [email or web address]: Abelardo Morse on 09/21/18 6:[address] Patient Name: MARIAM THAYER Encounter No: [id number] : 1950 Primary Insurance: [employer] ADV Anticipated DC Date: Planned Disposition: Inpatient Rehab External Planned Provider: [facility] INPATIENT REHAB LATE ENTRY FROM 09-20-18, 1510 HOURS: DCP follow-up note: CM RECEIVED EMAIL FROM DONNA SPRGAUE INFORMING CM THAT PT HAS BEEN ACCEPTED FOR INPATIENT REHAB WHEN MEDICALLY STABLE. WHEN STABLE, NOTIFY [facility] INPATIENT REHAB. DARA Molina DCP- Discharge Planning Updated by [id number]: Aleah Sprague on 09/06/18 4:[address] Patient Name: MARIAM THAYER Admission Status: Elective Accout number: [id number] Admission Date: 09-04-2018 : 1950 Admission Diagnosis:OCCLUSION AND STENOSIS OF BILATERAL CAROTID ARTERIES Attending: KAITLYN MOORE Current LOS: 2 Anticipated DC Date: Planned Disposition: Home Primary Insurance: [employer] ADV Discharge Planning Comments: CM met with patient at bedside about discharge planning / needs. Patient states she lives alone. Patient states she plans to discharge to her home. States she will have family transport her home upon discharge. Denies need for home health or other community resource needs. States home environment is safe. Denies any discharge needs or concerns at this time. CM will continue to follow and assist as needed with discharge planning / needs. Water Inspector: Aleah Sprague DCPIA - Discharge Planning Initial Assessment Updated by [email or web address]: Aleah Sprague on 09/06/18 6:26 pm * Is the patient Alert and Oriented? Yes * How many steps to enter\exit or inside your home? 12 * PCP juliette * Pharmacy [facility] * Preadmission Environment Home Alone * ADLs Independent * Equipment Walker * Other Equipment cane * List name and contact numbers for known caregivers / representatives who currently or will assist patient after discharge: tia thayer son-[phone] * Verbal permission to speak to the caregivers and representatives has been obtained from the patient. N/A * Community resources currently utilized None * Additional services required to return to the preadmission environment? No * Can the patient safely return to the preadmission environment? Yes * Has this patient been hospitalized within the prior 30 days at any hospital? No Coverage Notice Reviewer: [id number] - Aleah Sprague Notice Issued Date-Time: 09/26/2018 10:42 Notice Type: IM Discharge Notice Notice Delivered To: Patient Relationship to Patient: Self Supervisor Picking Crew Name: Delivery Method: HAND - Hand Delivered Dara Days: Prior Verbal Notification: Recipient Understood Notice: Yes Recipient Signature: Yes Med Rec Note Co-signed by Attending: Coverage Notice Comment: Last DP export: 09/21/18 6:17 a Patient Name: MARIAM THAYER Page [phone] at 1151 All edits/amendments must be made on the electronic document DICTATION DATE: 09/26/18 115 HYDROELECTRIC MACHINERY MECHANIC: KWAME 09/26/18 115 RPT#: [id number] DC DATE: STATUS: ADM IN [facility] [address] [place] [address] END OF REPORT
--- NOTE | 2018-09-26 14:30 | MORECARE ---
CASE MANAGEMENT DISCHARGE SUMMARY PATIENT: MARIAM THAYER UNIT: [id number] ADM DATE: 09/04/18 AGE: 68 : 50 SEX: F ROOM/BED: [facility] AUTHOR: JHONNY LUNA PHYSICIAN: REFERRING PHYSICIAN: KAITLYN MOORE MD DATE OF SERVICE: 09/26/18 Discharge Plan Patient Name: MARIAM THAYER Facility: [facility]:[place] : 1950 Planned Disposition: Inpatient Rehab Anticipated Discharge Date: Discharge Date: 09/26/2018 Expected LOS: Initial Reviewer: [email or web address] Initial Review Date: 09/04/2018 Generated: 09/26/18 3:30 pm Comments DCP- Discharge Planning Updated by [email or web address]: Aleah Sprague on 09/26/18 10:[address] Patient Name: MARIAM THAYER Admission Status: Elective Accout number: [id number] Admission Date: 09-04-2018 : 1950 Admission Diagnosis:OCCLUSION AND STENOSIS OF BILATERAL CAROTID ARTERIES Attending: KAITLYN MOORE Current LOS: 22 Anticipated DC Date: Planned Disposition: Inpatient Rehab Primary Insurance: [employer] ADV Discharge Planning Comments: Patient will be admitted to inpatient Rehab @ [facility]. Patient and family agree to discharge plan. D/C IMM explained and served 09/26/18 @ 1042. CM will continue to follow and assist as needed with discharge planning / needs. Dowel Pin Man: Aleah Sprague DCP- Discharge Planning Updated by [email or web address]: Abelardo Morse on 09/21/18 6:[address] Patient Name: MARIAM THAYER Encounter No: [id number] : 1950 Primary Insurance: [employer] ADV Anticipated DC Date: Planned Disposition: Inpatient Rehab External Planned Provider: [facility] INPATIENT REHAB LATE ENTRY FROM 09-20-18, 1510 HOURS: DCP follow-up note: CM RECEIVED EMAIL FROM DONNA SPRAGUE INFORMING CM THAT PT HAS BEEN ACCEPTED FOR INPATIENT REHAB WHEN MEDICALLY STABLE. WHEN STABLE, NOTIFY [facility] INPATIENT REHAB. DARA Molina DCP- Discharge Planning Updated by [email or web address]: Aleah Sprague on 09/06/18 4:[address] Patient Name: MARIAM THAYER Admission Status: Elective Accout number: [id number] Admission Date: 09-04-2018 : 1950 Admission Diagnosis:OCCLUSION AND STENOSIS OF BILATERAL CAROTID ARTERIES Attending: KAITLYN MOORE Current LOS: 2 Anticipated DC Date: Planned Disposition: Home Primary Insurance: [employer] ADV Discharge Planning Comments: CM met with patient at bedside about discharge planning / needs. Patient states she lives alone. Patient states she plans to discharge to her home. States she will have family transport her home upon discharge. Denies need for home health or other community resource needs. States home environment is safe. Denies any discharge needs or concerns at this time. CM will continue to follow and assist as needed with discharge planning / needs. Dowel Pin Man: Aleah Sprague DCPIA - Discharge Planning Initial Assessment Updated by [id number]: Aleah Sprague on 09/06/18 6:26 pm * Is the patient Alert and Oriented? Yes * How many steps to enter\exit or inside your home? 12 * PCP juliette * Pharmacy [facility] * Preadmission Environment Home Alone * ADLs Independent * Equipment Walker * Other Equipment cane * List name and contact numbers for known caregivers / representatives who currently or will assist patient after discharge: tia thayer son-[phone] * Verbal permission to speak to the caregivers and representatives has been obtained from the patient. N/A * Community resources currently utilized None * Additional services required to return to the preadmission environment? No * Can the patient safely return to the preadmission environment? Yes * Has this patient been hospitalized within the prior 30 days at any hospital? No Coverage Notice Reviewer: [id number] - Aleah Sprague Notice Issued Date-Time: 09/26/2018 10:42 Notice Type: IM Discharge Notice Notice Delivered To: Patient Relationship to Patient: Self Dampener Name: Delivery Method: HAND - Hand Delivered Adra Days: Prior Verbal Notification: Recipient Understood Notice: Yes Recipient Signature: Yes Med Rec Note Co-signed by Attending: Coverage Notice Comment: Last DP export: 09/26/18 10:51 a Patient Name: MARIAM THAYER Page [phone] at 1430 All edits/amendments must be made on the electronic document DICTATION DATE: 09/26/18 143 GYRO COMPASS TESTER: KWAME 09/26/18 1430 RPT#: [id number] DC DATE:09/26/18 STATUS: DIS IN [facility] [address] [place] [address] END OF REPORT
== END 2018-09-26 14:07 | DRG 37 ==
LOC: D.SDCHOLD 09-04 07:10 → D.CVICU 09-04 07:10 → D.SDCHOLD 09-04 11:30 → D.CVICU 09-04 14:51 → D.M2 09-20 14:17 → D.CVICU 09-20 18:42
PROVIDERS: Emergency Medicine; Internal Medicine Cardiovascular Disease; Internal Medicine Nephrology; Internal Medicine Pulmonary Disease; Orthopaedic Surgery; Student in an Organized Health Care Education/Training Program; ADMIT Thoracic Surgery (Cardiothoracic Vascular Surgery); ATTEND Thoracic Surgery (Cardiothoracic Vascular Surgery)
PROC: 03UK0JZ Supplement Right Internal Carotid Artery with Synthetic Substitute, Open Approach (ICD-10-PCS; 2018-09-04)
PROC: 03CK0ZZ Extirpation of Matter from Right Internal Carotid Artery, Open Approach (ICD-10-PCS; principal; 2018-09-04 11:30)
PROC: 0BH17EZ Insertion of Endotracheal Airway into Trachea, Via Natural or Artificial Opening (ICD-10-PCS; 2018-09-13)
PROC: 5A1945Z Respiratory Ventilation, 24-96 Consecutive Hours (ICD-10-PCS; 2018-09-13)
PROC: 0DH63UZ Insertion of Feeding Device into Stomach, Percutaneous Approach (ICD-10-PCS; 2018-09-18)
PROC: 05HY33Z Insertion of Infusion Device into Upper Vein, Percutaneous Approach (ICD-10-PCS; 2018-09-21)
PROC: 0S9C3ZZ Drainage of Right Knee Joint, Percutaneous Approach (ICD-10-PCS; 2018-09-21)
PROC: 0SBC4ZZ Excision of Right Knee Joint, Percutaneous Endoscopic Approach (ICD-10-PCS; 2018-09-22)
DX: I65.23 Occlusion and stenosis of bilateral carotid arteries (principal); J96.00 Acute respiratory failure, unspecified whether with hypoxia or hypercapnia; N17.9 Acute kidney failure, unspecified; N39.0 Urinary tract infection, site not specified; J44.1 Chronic obstructive pulmonary disease with (acute) exacerbation; E87.2 Acidosis; G72.81 Critical illness myopathy; I10 Essential (primary) hypertension; D50.9 Iron deficiency anemia, unspecified; K21.9 Gastro-esophageal reflux disease without esophagitis; F17.200 Nicotine dependence, unspecified, uncomplicated; R13.10 Dysphagia, unspecified; I25.10 Atherosclerotic heart disease of native coronary artery without angina pectoris; G52.9 Cranial nerve disorder, unspecified; R56.9 Unspecified convulsions; M10.9 Gout, unspecified; B96.1 Klebsiella pneumoniae [K. pneumoniae] as the cause of diseases classified elsewhere; R53.81 Other malaise

== ENCOUNTER 2018-09-26 13:21 | Inpatient (IN) | payer MEDICARE, MEDICAID ==
[~2018-09-26] VITALS: Ht 162.6 cm; Wt 49.9 kg
[~2018-09-26 13:21] MED LIST changes: +ASPIRIN81 MG PEG; +ATROVENT 0.02%2.5 ML UPD; +CATAPRES TTS-10.1 MG TRANSDERM; +DILANTIN 12525 MG/ML PEG; +DULCOLAX10 MG/SUPP RC; +FLORAJEN3 CAPS460 MG PT; +LOPRESSOR25 MG PT; +Lortab Liquid PEG; +METOCLOPRAM5 MG/5 ML PT; +MIRALAX17 GM PEG; +NORVASC10 MG PT; +Potassium Cl oral po PEG; +Tylenol PT; +ULORIC40 MG PT; +XOPENEX 0.0.63 MG/3 UPD; +ZOFRAN PT
--- NOTE | 2018-09-26 14:30 | NUR ---
RECIEVED FROM [facility]/ TO ROOM 1109 FOR REHAB.ORIENTED TO ROOM AND SURROUNDINGS.CL IN REACH.
--- NOTE | 2018-09-26 17:30 | NUR ---
PT RESTING IN BED WITH EYES OPEN CALL LIGHT IN REACH WILL MONITER
[2018-09-26 19:00] VITALS: BP 157/55
--- NOTE | 2018-09-26 19:45 | NUR ---
PT NEW ADMIT PLEASANT, COLD GAVE BLANKET FROM WARMER, NO OTHER NEEDS NOTED, FLUIDS AND CALL LIGHT WITHIN REACH
[2018-09-26 20:25] VITALS: BP 136/61; BMI 18.9
--- NOTE | 2018-09-27 01:42 | NUR ---
PT UP REQUESTING PAIN MEDS, GIVEN FOR 10 OF 10 PAIN LEVEL, PT NPO PEG TUBE IN PLACE
--- NOTE | 2018-09-27 02:16 | NUR ---
PT HAS CLONIDINE PATCH AFTER CHECKING PATCH AND RECORDS FROM MED SURG THE PATCH IS NOT DUE UNTIL 09/27/18 AT 1800
--- NOTE | 2018-09-27 03:02 | NUR ---
PT ASLEEP NO NEEDS NOTED CALL LIGHT WITHIN REACH
--- NOTE | 2018-09-27 07:35 | NUR ---
PT SITTING UP IN RECLINER. DENIES NEEDS AT THIS TIME. CALL LIGHT IN REACH. RESP EVEN AND UNLABORED. PT HAS PEG TUBE. FEEDING WILL BE GIVEN THIS MORNING WITH MORNING MEDS. SHE RECIEVES JEVITY 1.2 THREE TIMES A DAY. WILL CONTINUE TO MONITOR.
[2018-09-27 07:58] VITALS: BP 165/76
[2018-09-27 08:37] LABS: BASOPHILS 0.2 % (0-2); EOSINOPHILS 2.8 % (0-7); HEMATOCRIT 35.3 % (36.0-48.0); HEMOGLOBIN 11.6 g/dL (12-16); IMMATURE GRANULOCYTES 0.3 % (0-5); MCH 27.7 pg (26.0-34.0); MCHC 32.9 g/dL (31.0-37.0); MCV 84.2 fL (80.0-100.0); MEAN PLATELET VOLUME 10.2 fL (7.4-10.4); MONOCYTES 8.7 % (2-11); RBC 4.19 10x6/uL (4.00-5.40); RDW 18.6 % (11.5-14.5); WBC 9.2 10x3/uL (4.8-10.8)
[2018-09-27 09:13] LABS: CALC OSMOLALITY 276 mosm/kg (275-300); CALCIUM 9.4 mg/dL (8.5-10.1); CARBON DIOXIDE 25.5 mmol/L (21.0-32.0); CHLORIDE - SERUM 104 mmol/L (98-107); CREATININE - SERUM 0.8 mg/dL (0.6-1.3); GLUCOSE 83 mg/dL (74-106); POTASSIUM - SERUM 4.4 mmol/L (3.5-5.1); SODIUM 140 mmol/L (136-145); UREA NITROGEN 10 mg/dL (7-18); eGFR NON AFRICAN AMERICAN 75 mL/min (90-120)
[2018-09-27 09:19] LABS: PLATELET COUNT 364 10x3/uL (130-400)
--- NOTE | 2018-09-27 09:30 | NUR ---
PEG TUBE FEEDING COMPLETE. SLOW TO INFUSE. WILL CONTINUE TO MONITOR.
--- NOTE | 2018-09-27 12:57 | NUR ---
Nutrition Note: Chart reviewed. Full Nutritional Assessment complete. Will put order in to increase TF of Jevity 1.2 to 4.5 cans/d to more closely meet pt's est nutritional needs. RD following.
[2018-09-27 12:59] VITALS: Ht 162.6 cm; Wt 49.9 kg
--- NOTE | 2018-09-27 14:14 | NUR ---
PT HAD OVER 60ML OF RESIDUAL HELD NOON FEEDING WILL RECHECK AFTER PHYSICAL THERAPY. PT DENIES BEING HUNGRY.
--- NOTE | 2018-09-27 15:47 | NUR ---
CALLED KYLER, ORDER FOR GRAVITY DRAINAGE AND SALINE BY BEDSIDE, STATED HE WOULD BE DOWN IN A LITTLE WHILE AND DO NOT PUT ANYTHING THROUGH PEG TUBE. DUE TO PAIN IN ABDOMEN, DARK PEG TUBE DRAINAGE. PT PEG TUBE IS ATTACHED TO GRAVITY DRAINAGE AT THIS TIME. NO DRAINAGE AT THIS TIME. WILL CONTINUE TO MONITOR.
--- NOTE | 2018-09-27 17:27 | NUR ---
PT LYING IN BED. PT IS IN PAIN BUT CAN NOT GIVE ANYTHING THROUGH PEG TUBE. PT COMPLAINS OF PAIN AT PEG TUBE SITE. BED IN LOW. NO DRAINAGE AT THIS TIME IN GRAVITY DRAINAGE BAG. WILL CONTINUE TO MONITOR.
--- NOTE | 2018-09-27 17:46 | NUR ---
PAGED KYLER DUE TO PT BEING IN PAIN AROUND PEG TUBE SITE. SPOKE WITH KYLER 2 HRS AGO AND HE STATED HE WOULD COME SEE PATIENT.
--- NOTE | 2018-09-27 18:25 | NUR ---
KYLER CALLED BACK AND STATED HE WOULD BE HERE SOMETIME BETWEEN NOW AND MIDNIGHT.
--- NOTE | 2018-09-27 18:57 | NUR ---
RECEIVED REPORT FROM OFF GOING NURSE. DR. CHÁVEZ IN PATIENTS ROOM ASSESSING PATIENTS PEG TUBE. DR. CHÁVEZ ORDERED IMAGING FOR PEG TUBE PLACEMENT. DR. CHÁVEZ STATED THAT WE COULD GIVE HER PAIN MEDICATION BUT TO HOLD OTHER MEDICATIONS AND FEEDINGS UNTIL RESULTS WHERE OBTAINED.
[2018-09-27 19:00] VITALS: BP 154/76
--- NOTE | 2018-09-27 19:51 | NUR ---
IMAGING ON UNIT DOING KUB GASTRAGIFFIN FOR PEG TUBE PLACEMENT.
--- NOTE | 2018-09-27 21:07 | NUR ---
PAGED DR. MEYER TO SEE IF HE HAD REVIEWED THE RESULTS OF THE KUB. HE CALLED ME RIGHT BACK AND TOLD ME THAT THE PEG TUBE COULD BE USED FOR MEDICATIONS AND FEEDINGS.
--- NOTE | 2018-09-27 23:00 | NUR ---
ADMINISTERED 240 ML OF JEVITY 1.2 INTO PEG TUBE BY GRAVITY. FLUSHED WITH 60 ML OF WARM WATER PRIOR AND AFTER FEEDING. PATIENT TOLERATED AND DOESNT REPORT ANY CRAMPING IN ABDOMEN.
--- NOTE | 2018-09-27 23:35 | NUR ---
ADMINISTERED PRN VALIUM CRUSHED IN PEG TUBE. PATIENT IS VERY ANXIOUS AND ARGUMENTATIVE. CALL LIGHT IN REACH.
--- NOTE | 2018-09-28 01:38 | NUR ---
PATIENT ASLEEP WITH EYES CLOSED. NO S/S OF DISTRESS. CALL LIGHT IN REACH.
--- NOTE | 2018-09-28 06:37 | NUR ---
ADMINISTERED 240 ML OF 1.2 JEVITY INTO PEG TUBE USING GRAVITY. 45 ML OF WARM WATER FLUSHED PRIOR AND AFTER FEEDING. PATIENT TOLERATED PROCEDURE, NO EVIDENCE OF STOMACH CRAMPING.
--- NOTE | 2018-09-28 07:01 | NUR ---
RESTING QUIETLY IN BED. NO S/S DISTRESS. RESP EFFORT NON LABORED. EYES CLOSED. BED IN LOWEST POSITION. CALL LIGHT IN REACH.
[2018-09-28 08:00] VITALS: BP 165/70
--- NOTE | 2018-09-28 08:00 | NUR ---
PATIENT IS ALERT/ORIENT. CALL LIGHT WITHIN REACH. VOICES NO NEEDS. WILL CONTINUE WITH PLAN OF CARE
--- NOTE | 2018-09-28 10:57 | NUR ---
PATIENT WORKING WITH 0CCUPATIONAL THERAPIST IN REHAB ROOM.
--- NOTE | 2018-09-28 12:28 | NUR ---
PEG TUBE FEEDING COMPLETED. PATIENT TOLERATED WELL. 10CC RESIDUAL
--- NOTE | 2018-09-28 13:18 | NUR ---
Nutrition Follow Up: Pt stated that she felt good; she denied any abdominal pain, nausea. General Surgery note reviewed. Pt is receiving Jevity 1.2 - 5 cans/d. Wt stable BM: 09/27/18 Meds and labs reviewed Rec continue current TF, H20 flush regimen. RD following.
--- NOTE | 2018-09-28 15:09 | NUR ---
PATIENT ADMITTED TO REHAB FROM ACUTE FLOOR. HER PCP IS DR. BOYD AND DME AT HOME IS A WALKER AND A CANE. DISCHARGE PLANS ARE FOR PATIENT TO RETURN HOME. WILL CONTINUE TO FOLLOW WITH PATIENT.
--- NOTE | 2018-09-28 15:30 | NUR ---
JEVITY 1.2 GERARDO ONE CAN PEG TUBE FEEDING GIVEN. 60CC RESIDIUAL.
[2018-09-28 19:00] VITALS: BP 157/68
--- NOTE | 2018-09-28 19:10 | NUR ---
PATIENT IS SITTING UP IN HER BED. DENIES ANY NEEDS. BED IS DOWN LOW WITH SIDE RAILS UP X2 AND CL IN REACH.
--- NOTE | 2018-09-29 00:02 | NUR ---
PATIENT IS SLEEPING. BED IS DOWN LOW WITH SIDE RAILS UP X2 AND CL IN REACH.
--- NOTE | 2018-09-29 04:02 | NUR ---
PATIENT IS SLEEPING. BED IS DOWN LOW, SIDE RAILS UP X2. CL IN REACH.
[2018-09-29 07:30] VITALS: BP 140/60
--- NOTE | 2018-09-29 07:45 | NUR ---
PHYSICAL THERAPIST IN ROOM TO WORK WITH PATIENT. PATIENT WORK WITH THERAPIST FOR ABOUT FIFTEEN MINUTES, THEN REFUSED ANY MORE THERAPHY
--- NOTE | 2018-09-29 08:00 | NUR ---
PATIENT IS ALERT ORIENT. CALL LIGHT WITHIN REACH. VOICES NO NEEDS AT THIS TIME. WILL CONTINUE WITH PLAN OF CARE.
--- NOTE | 2018-09-29 10:20 | NUR ---
Brian ESTRADA, DIETICTION, INTO SEE PATIENT. NEW ORDERS RECEIVED
--- NOTE | 2018-09-29 11:29 | NUR ---
DR Rl HDZ INTO SEE PATIENT. NEW ORDERS RECEIVED
--- NOTE | 2018-09-29 12:56 | NUR ---
PRN PAIN MEDICATION GIVEN FOR RIGHT KNEE PAIN.
--- NOTE | 2018-09-29 13:55 | NUR ---
SITTING UP IN RECLINER.CL IN REACH.
--- NOTE | 2018-09-29 14:13 | NUR ---
PATIENT HAS SIGNED RELEASE OF RESPONSIBILTIY FOR BED/CHAIR ALARM.
--- NOTE | 2018-09-29 14:55 | NUR ---
PATIENT REFUSED SHOWER THIS AM. REFUSED NURSES OFFER AND NURSE ASST OFFER FOR SHOWER
--- NOTE | 2018-09-29 15:35 | NUR ---
PATIENT DECIDED SHE WOULD TAKE A SHOWER NOW. NURSE ASST. HELPED WITH SHOWER. LINENS ON BED CHANGED
--- NOTE | 2018-09-29 18:35 | NUR ---
RESIDULE 110CC. FEEDING HELD
--- NOTE | 2018-09-29 18:57 | NUR ---
PATIENT IS RESTING IN HER BED. BED IS DOWN LOW WITH SIDE RAILS UP X2. CL IN REACH.
[2018-09-29 20:02] VITALS: BP 161/67
--- NOTE | 2018-09-30 00:01 | NUR ---
PATIENT IS SLEEPING. CL IN REACH.
--- NOTE | 2018-09-30 04:01 | NUR ---
PATIENT IS SLEEPING. HER BED IS DOWN LOW AND CL IN REACH.
--- NOTE | 2018-09-30 10:38 | NUR ---
PATIENT ALERT AND ORIENTED THIS MORNING. 150ML RESIDUAL OBTAINED BEFORE GIVING MEDICATION. PATIENT C/O HEAD PAIN AND WAS MEDICATED WITH PRN LORATAB LIQUID. PATIENT UP TO BATHROOM PER SELF. RESTING IN ROOM AT THIS TIME. NO COMPLAINTS. CALL LIGHT WITHIN REACH. WILL CONTINUE TO MONITOR.
[2018-09-30 10:52] VITALS: BP 139/63
--- NOTE | 2018-09-30 11:19 | NUR ---
RESIDUAL OF 120 ML OBTAINED. 1030 BOLUS TUBE FEEDING HELD.
--- NOTE | 2018-09-30 16:29 | NUR ---
RESIDUAL OF 10ML AT 1430 SO JEVITY WAS GIVEN. PATIENT RESTING QUIETLY AT THIS TIME. WILL CONTINUE TO MONITOR.
--- NOTE | 2018-09-30 19:01 | NUR ---
PATIENT IS RESTING IN HER BED. SHE DENIES ANY NEEDS OTHER THAN TO SPEAK WITH THE DOCTOR. BED IS DOWN LOW WITH SIDE RAILS UP X2 AND CALL LIGHT IN REACH.
[2018-09-30 20:08] VITALS: BP 155/63
--- NOTE | 2018-10-01 00:03 | NUR ---
PATIENT IS SLEEPING. BED IS DOWN LOW WITH SIDE RAILS UP X2 AND CL IN REACH.
--- NOTE | 2018-10-01 04:02 | NUR ---
PATIENT IS SLEEPING. CALL LIGHT IS IN REACH.
--- NOTE | 2018-10-01 06:10 | NUR ---
PATIENT C/O SOB AFTER RECEIVEING BREATHING TREATMENT. O2 SAT = 99%. PATIENT THEN STATES SHE DOES NOT WANT HER TUBE FEEDING. REQUEST FOR PAIN MEDICINE WELL FOR PAIN LEVEL 10/10 TO RIGHT KNEE.
[2018-10-01 07:34] LABS: BASOPHILS 0.2 % (0-2); EOSINOPHILS 3.1 % (0-7); HEMATOCRIT 35.4 % (36.0-48.0); HEMOGLOBIN 11.5 g/dL (12-16); IMMATURE GRANULOCYTES 0.6 % (0-5); LYMPHOCYTES 26.7 % (15-50); MCH 27.5 pg (26.0-34.0); MCHC 32.5 g/dL (31.0-37.0); MCV 84.7 fL (80.0-100.0); MEAN PLATELET VOLUME 9.7 fL (7.4-10.4); MONOCYTES 14.5 % (2-11); NEUTROPHILS 54.9 % (40-80); PLATELET COUNT 378 10x3/uL (130-400); RBC 4.18 10x6/uL (4.00-5.40); RDW 17.9 % (11.5-14.5); WBC 8.9 10x3/uL (4.8-10.8)
[2018-10-01 07:45] LABS: ANION GAP 18.1 mmol/L (8-16); CALCIUM 9.2 mg/dL (8.5-10.1); CARBON DIOXIDE 21.3 mmol/L (21.0-32.0); POTASSIUM - SERUM 5.4 mmol/L (3.5-5.1)
[2018-10-01 08:17] VITALS: BP 155/74
--- NOTE | 2018-10-01 08:45 | NUR ---
Nutrition follow up: Spoke with on-call RD this weekend who recieved a call about poor TF toleration on Monday Reviewed old chart notes-pt continues to have poor TF toleration off and on Pt refused morning TF and reports she wants to go home Nursing reports pt had increased residuals yesterday and reports some nausea today Changed TF formula to Vital as this formula should be better tolerated RD following
--- NOTE | 2018-10-01 11:56 | NUR ---
PATIENT ALERT AND OREINTED THIS MONRING. C/O KNEE PAIN. STATES THAT NOTHING HELPS WITH THE KNEE PAIN. DR. HDZ IN TO SEE PATIENT. VOTRAN GEL ORDERED FOR KNEE PAIN. PATIENT ANXIOUS TO GO HOME. SHE STATES THAT SHE WANTS TO GET FEEDING TUBE OUT. TOLD HER THAT SHE NEEDS TO CO-OPERATE WITH SPEECH THERAPY AND DO WHAT SHE ASKS AND WHEN SHE IS ABLE TO PASS SWALLOWING TEST SHE WILL BE ABLE TO GET THE TUBE TAKEN OUT. MEDICATED THIS PRN LORATAB AND TYLENOL THIS MORNING WITHOUT ANY RESULT. PATIENT STATES "MY PAIN IS ALWAYS A 10". FAMILY IN TO VISIT THIS MORNING. TOLERATED PT AND OT WELL. RESTING QUIETLY IN ROOM AT THIS TIME. CALL LIGHT WITHIN REACH. WILL CONTINUE TO MONITOR.
--- NOTE | 2018-10-01 15:53 | NUR ---
VOLTRAN GEL APPLIED TO PAINFUL, SWOLLEN KNEE AT 13:00 BUT PATIENT STATED THAT IT DID NOT HELP. WAS MEDICATED WITH PRN LORATAB AT 15:00. PATIENT RESTING IN ROOM AT THIS TIME. SPEECH THERAPY IN TO SEE PATIENT.
--- NOTE | 2018-10-01 15:55 | NUR ---
PATIENTS 1430 TUBE FEEDING HELD DUE TO 130ML RESIDUAL.
[2018-10-01 19:00] VITALS: BP 146/67
--- NOTE | 2018-10-01 19:22 | NUR ---
AWAKE AND ALERT. MEDICATED FOR C/O RIGHT KNEE PAIN PER PEG TUBE. PEG TUBE PATENT AND IN PLACE. RESPIRATIONS UNLABORED. CALL LIGHT IN REACH.
--- NOTE | 2018-10-02 00:52 | NUR ---
RESTING WITH EYES CLOSED AND RESPIRATIONS UNLABORED. NO DISTRESS NOTED. CALL LIGHT IN REACH.
[2018-10-02 08:00] VITALS: BP 139/56
--- NOTE | 2018-10-02 08:00 | NUR ---
PT RESTING IN BED WITH EYES OPEN CALL LIGHT IN REACH WILL MONITER
--- NOTE | 2018-10-02 13:20 | NUR ---
Nutrition Follow Up: Pt stated that she wanted to eat. She said that she felt that she was swallowing much better. Pt said that she had some nausea this am but it is resolved. She denied any abdominal pain. RD discussed TF options and asked pt about trying nocturnal continuous TF in order to decrease number of bolus feedings. Pt stated that she wanted to continue with current regimen. Pt is tolerating current TF regimen of Vital 1.0 @ 4 cans/d; however, this is not meeting pt's est needs. BM: 09/28/18 Meds and labs reviewed Will change TF to Jevity 1.5 - 4 cans/day to better meet est nutritional needs. Will put order in to bolus 1 can Jevity 1.5 @ 0630, 1030, 1430, 1830 with 60 ml H2O flush before and after each bolus. Bolus 55 ml H2O @ 0830, 1230, 1630, 2030 to meet est fluid needs. RD will continue to monitor pt progress.
[2018-10-02 19:00] VITALS: BP 90/66
--- NOTE | 2018-10-02 19:02 | NUR ---
GREETED PATIENT AND INTRODUCED MYSELF HER NURSE FOR THE EVENING. TOLD PATIENT THAT SHE WOULD GO BACK ON NPO UNTIL SPEECH THERAPIST COULD WORK WITH HER TOMMORROW. PATIENT DENIES ANY NEEDS AT THIS TIME. CALL LIGHT IN REACH.
--- NOTE | 2018-10-02 21:33 | NUR ---
ADMINISTERED LORITAB 15 ML INTO PEG TUBE FOR PAIN 12/17. 45 ML OF WARM WATER FLUSHED PRIOR AND FOLLOWING MEDICATION ADMINISTRATION. PATIENT TOLERATED. CALL LIGHT IN REACH.
--- NOTE | 2018-10-02 23:37 | NUR ---
PATIENTS 2330 TUBE FEEDING HELD DUE TO 110 ML OF RESIDUAL.
--- NOTE | 2018-10-02 23:49 | NUR ---
PATIENT AWAKE AND SITTING ON SIDE OF BED. DENIES ANY NEEDS AT THIS TIME. CALL LIGHT IN REACH.
--- NOTE | 2018-10-03 03:13 | NUR ---
PATIENT ASLEEP LAYING ON RIGHT SIDE. HOB AT 30 DEGREES. RESPIRATIONS EVEN. NO S/S OF DISTRESS. BED IN LOWEST POSITION. CALL LIGHT IN REACH.
--- NOTE | 2018-10-03 05:45 | NUR ---
ADMINISTERED 240 ML OF 1.5 JEVITY INTO PEG TUBE. FLUSHED WITH 45 ML OF WARM WATER PRIOR AND AFTER ADMINISTRATION. PATIENT TOLERATED PROCEDURE.
[2018-10-03 08:00] VITALS: BP 152/77
[2018-10-03 09:30] LABS: BASOPHILS 0.4 % (0-2); EOSINOPHILS 3.3 % (0-7); HEMATOCRIT 34.1 % (36.0-48.0); HEMOGLOBIN 10.9 g/dL (12-16); IMMATURE GRANULOCYTES 0.3 % (0-5); LYMPHOCYTES 32.1 % (15-50); MCH 27.6 pg (26.0-34.0); MCV 86.3 fL (80.0-100.0); MEAN PLATELET VOLUME 9.7 fL (7.4-10.4); NEUTROPHILS 49.9 % (40-80); PLATELET COUNT 384 10x3/uL (130-400); RBC 3.95 10x6/uL (4.00-5.40); RDW 17.9 % (11.5-14.5); WBC 7.8 10x3/uL (4.8-10.8)
--- NOTE | 2018-10-03 09:44 | NUR ---
CLINICAL UPDATES FAXED TO [facility] AT , ID # [id number] WITH CONFORMATION RECIEVED
[2018-10-03 09:54] LABS: CALCIUM 9.1 mg/dL (8.5-10.1); CARBON DIOXIDE 24.4 mmol/L (21.0-32.0); POTASSIUM - SERUM 5.4 mmol/L (3.5-5.1); URIC ACID 4.2 mg/dL (2.6-7.2)
--- NOTE | 2018-10-03 14:10 | NUR ---
Nutrition Follow Up: Pt denied any abdominal pain, nausea. Chart reviewed. Noted TF held at times due to residual amount - no need to check residuals with bolus TF. Current TF regimen: Jevity 1.5 - 4 cans/d with 60 ml H2O flush before & after bolus given. Additional H2O flush of 55 ml 4x/d. BM: 09/28/18 - no BM x 5 days Meds and labs reviewed Rec continue current TF, H2O flush regimen. No need to check residuals. RD following.
--- NOTE | 2018-10-03 14:55 | NUR ---
DR SANTANA NOTIFIED OF CONSULT STATED HE WOULD SEE PT IN THE MORNING
--- NOTE | 2018-10-03 14:56 | NUR ---
RESTING QUIETLY IN BED.CL IN REACH.
--- NOTE | 2018-10-03 16:34 | NUR ---
PT UP IN CHAIR AT BEDSIDE CALL LIGHT IN REACH WILL MONITER
[2018-10-03 19:00] VITALS: BP 148/59
--- NOTE | 2018-10-03 19:02 | NUR ---
PATIENT IS SLEEPING. BED IS DOWN LOW WITH SIDE RAILS UP X2. CALL LIGHT IS IN REACH.
--- NOTE | 2018-10-03 20:31 | NUR ---
PATIENT C/O PAIN 04/18 TO RT KNEE. PEG TUBE RESIDUAL IS 280 ML FLUID WITH SOUR SMELL. RESIDUAL THROWN AWAY AND PATIENT MEDICATED FOR KNEE PAIN WITH NORCO 10 MG.
--- NOTE | 2018-10-04 00:01 | NUR ---
PATIENT IS RESTING IN BED. BED IS DOWN LOW WITH SIDE RAILS UP X2. CL IN REACH.
--- NOTE | 2018-10-04 04:01 | NUR ---
PATIENT IS SLEEPING. BED IS DOWN LOW WITH SIDE RAILS UP X2. CL IN REACH.
--- NOTE | 2018-10-04 07:20 | NUR ---
PT IS SITTING UP IN RECLINER CHAIR. PT HAS NO FURTHER NEEDS AT THIS TIME. BED LOW. CL IN REACH.
[2018-10-04 08:00] VITALS: BP 130/66
--- NOTE | 2018-10-04 08:32 | NUR ---
SPOKE WITH THI THE LIGHTING TECHNICIAN SHE STATES SHE IS GOING TO SPEAK WITH YURIDIA WHO MADE TF ORDERS AND SEE IF THEY CAN'T FIGURE SOMETHING BETTER OUT. TF ON HOLD UNTIL ORDERS HAVE BEEN CHANGED.
--- NOTE | 2018-10-04 09:40 | NUR ---
NO RESDUAL. FLUSHED PEG TUBE WITH 40ML OF H20. GAVE AM MEDS CRUSHED IN 70ML OF WATER. FLUSHED WITH 50ML OF WATER. PT SITTING UP IN RECLINER CHAIR AND TOLERATED WELL. PT HAS VISITOR AT BEDSIDE. CL IN REACH. WILL COTNINUE TO MONITOR.
--- NOTE | 2018-10-04 09:45 | NUR ---
SPOKE WITH DR. SANTANA AND HE STATES "PT RIGHT KNEE PAIN IS FROM GOUT AND I DON'T THINK PT NEEDS ANOTHER I&D AT THIS POINT." HE STATES HE "DOES WANT HER ON MEDICATION FOR GOUT AND MY SUGGESTION IS ALLOPURINOL AND COLCHIZINE." I STATED TO HIM PT "IS ALLERGIC TO ALLOPURINOL" AND HE STATES "WELL SHE NEEDS SOMETHING AND I AM GOING TO LEAVE IT UP TO DR. HDZ. I HAVE CALLED HIM AND LEFT HIM A VOICE MESSAGE." I VERBALIZED UNDERSTANDING.
--- NOTE | 2018-10-04 10:44 | NUR ---
Nutrition Follow Up: Spoke with nursing who reported that pt had > 200 ml residual prior to receiving last TF bolus. TF was held. Noted pt's last BM was 09/28/18 - no BM x 6 days. Will put order in to change TF to Two Lars HN 3 cans/d with 50 ml H2O flush before and after bolus is given. TF to be given @ 0630, 1230, 1830. Additional H2O flushes 100 ml TID - to be given @ 0930, 1530, 2130. TF regimen will provide 1425 kcal and 60 g protein per day. Rec consider starting Reglan. RD following.
--- NOTE | 2018-10-04 12:20 | NUR ---
CALLED THE [facility] AND ASKED FOR THREE TWO GERARDO. THEY STATED THEY WILL BRING IT.
--- NOTE | 2018-10-04 12:59 | NUR ---
TWO GERARDO TUBE FEEDING DONE. NO RESIDUAL. FLUSHED WITH 40ML OF H20 AND GAVE ONE CAN OF TWO GERARDO (237ML) BY GRAVITY AND FLUSHED WITH 55ML OF WATER.
--- NOTE | 2018-10-04 13:20 | NUR ---
PT TAKEN TO THERAPY GYM.
--- NOTE | 2018-10-04 13:52 | NUR ---
CALLED DR. HDZ'S OFFICE AND THEY STATED DR. HDZ AND HID NURSE ARE ON LUNCH BREAK AND TO CALL BACK ABOUT [phone]. I VERBALIZED UNDERSTANDING. NEEDING TO SPEAK WITH DR. HDZ ABOUT PT'S GOUT MEDICATION AND POSSIBLE GETTING NORCO CHANGED FROM Q6HP TO Q4HP.
--- NOTE | 2018-10-04 15:03 | NUR ---
SPOKE WITH DR. HDZ HE STATES TO ADD COLCHIZINE ALONG WITH ULORIC AND TO CHANGE HYDROCODONE FROM Q6HP TO Q4HP.
--- NOTE | 2018-10-04 17:44 | NUR ---
PT EATING DINNER TRAY WITH SPEECH THERAPIST. SPEECH THERAPIST STATES TO HOLD 1830 CAN OF TWO GERARDO TF TILL LATER TONIGHT.
--- NOTE | 2018-10-04 17:58 | NUR ---
10ML OF RESIDUAL. FLUSHED WITH 20ML OF H20. GAVE MEDS IN H20 30ML. FLUSHED WITH 50ML OF H20.
--- NOTE | 2018-10-04 19:22 | NUR ---
AWAKE AND ALERT. SITTING IN WHEELCHAIR BESIDE BED. MEDICATED FOR PAIN. PEG TUBE IN PLACE. RESPIRATIONS UNLABORED. NO ACUTE DISRESS NOTED.
[2018-10-04 19:44] VITALS: BP 159/69
--- NOTE | 2018-10-05 01:37 | NUR ---
RESTING IN BED WITH EYES CLOSED AND RESPIRATIONS UNLABORED. NO DISTRESS NOTED.
--- NOTE | 2018-10-05 05:37 | NUR ---
RESTING IN BED. PEG TUBE IN PLACE. RESPIRATIONS UNLABORED. CONDITION UNCHANGED THIS SHIFT.
[2018-10-05 06:47] LABS: BASOPHILS 0.4 % (0-2); HEMATOCRIT 35.5 % (36.0-48.0); HEMOGLOBIN 11.6 g/dL (12-16); IMMATURE GRANULOCYTES 0.3 % (0-5); LYMPHOCYTES 31.1 % (15-50); MCH 27.6 pg (26.0-34.0); MCHC 32.7 g/dL (31.0-37.0); MCV 84.5 fL (80.0-100.0); MEAN PLATELET VOLUME 9.9 fL (7.4-10.4); MONOCYTES 14.9 % (2-11); NEUTROPHILS 50.3 % (40-80); PLATELET COUNT 390 10x3/uL (130-400); RDW 17.4 % (11.5-14.5); WBC 9.2 10x3/uL (4.8-10.8)
[2018-10-05 06:57] LABS: ANION GAP 16.6 mmol/L (8-16); CALCIUM 9.5 mg/dL (8.5-10.1); CARBON DIOXIDE 22.3 mmol/L (21.0-32.0); CREATININE - SERUM 1.1 mg/dL (0.6-1.3); POTASSIUM - SERUM 4.9 mmol/L (3.5-5.1)
[2018-10-05 07:57] VITALS: BP 114/52
--- NOTE | 2018-10-05 18:47 | NUR ---
PT RESTING IN BED WITH EYES OPEN CALL LIGHT IN REACH NO PROBLEMS WILL MONITER
--- NOTE | 2018-10-05 18:48 | NUR ---
PT SITTING UP ON SIDE OF BED WATCHING TV CALL LIGHT IN REACH WILL MONITER
--- NOTE | 2018-10-05 19:17 | NUR ---
PATIENT IS RESTING IN HER BED. DENIES ANY NEEDS. BED IS DOWN LOW WITH SIDE RAILS UP X2. CALL LIGHT IN REACH.
[2018-10-05 21:22] VITALS: BP 157/57
--- NOTE | 2018-10-06 00:01 | NUR ---
PATIENT IS SLEEPING. BED IS DOWN LOW. CALL LIGHT IS IN REACH.
--- NOTE | 2018-10-06 04:01 | NUR ---
PATIENT IS SLEEPING. BED IS DOWN LOW. CL IN REACH.
--- NOTE | 2018-10-06 08:00 | NUR ---
PATIENT SITTING UP AT BEDSIDE TO EAT BREAKFAST. ALERT/ORIENT. CALL LIGHT WITHIN REACH. VOICES NO NEEDS AT THIS TIME. WILL CONTINUE WITH PLAN OF CARE
[2018-10-06 08:32] VITALS: BP 153/62
--- NOTE | 2018-10-06 09:26 | NUR ---
MEDICATIONS CRUSHED AND GIVEN THROUGH PEG TUBE
--- NOTE | 2018-10-06 12:47 | NUR ---
BOLUS FEEDING OF TWOCAL HN GIVEN. 25CC OF RESIDUAL BEFORE FEEDING.
--- NOTE | 2018-10-06 18:37 | NUR ---
20CC OF RESIDUAL. TUBE FEEDING DONE ORDERED
[2018-10-06 19:38] VITALS: BP 145/53
--- NOTE | 2018-10-06 19:44 | NUR ---
AWAKE AND ALERT. RESPIRATION UNLABORED. DENIES PAIN AT THIS TIME. PEG TUBE IN PLACE. SLIGHT EDEMA NOTED TO RIGHT KNEE. NO DISTRESS NOTED. CALL LIGHT IN REACH.
--- NOTE | 2018-10-07 03:04 | NUR ---
RESTING IN BED. NO DISTRESS NOTED.
--- NOTE | 2018-10-07 04:53 | NUR ---
RESTING IN BED. RECENTLY MEDICATED FOR PAIN. STATES "IT DOESNT REALLY WORK" BUT WANTED TO TAKE IT ANYWAY.
[2018-10-07 07:47] VITALS: BP 151/55
--- NOTE | 2018-10-07 09:59 | NUR ---
PATIENT ALERT AND OREINTED THIS MORNING. SITTING ON SIDE OF BED. C/O KNEE BEING SWOLLEN AND HURTING AND IS UPSET SINCE SHE FEELS LIKE NOTHING HAS BEEN DONE FOR HER SINCE SHE CAME TO THE HOSPITAL. STATES THAT THE NORCO IS NOT HELPING HER KNEE PAIN. ATE ONLY 5% OF BREAKFAST. GAVE SELF BED BATH SINCE SHE REFUSED HER SHOWER STATING THAT THERE WAS NO WAY SHE WAS GOING TO GET IN THAT FREEZING BATHROOM AND TAKE A SHOWER. TOLD HER WE COULD TURN ON THE HEAT LAMP AND SHE SAID THAT IS HAS BEEN ON SINCE YESTERDAY AND IS STILL COLD. RESTING QUIETLY AT THIS TIME IN BED. CALL LIGHT WITHIN REACH. WILL CONTINUE TO MONITOR.
--- NOTE | 2018-10-07 12:55 | NUR ---
PATIENT ATE ONLY A FEW BITES OF LUNCH. STATES "THE FOOD GETS STUCK IN HER THROAT AND WILL NOT GO DOWN. ALSO SAYS SHE HAS TROUBLE SWALLOWING WATER AND TEA. WILL NOTIFY SPEECH THERAPIST OF THIS ISSUE. WILL CONTINUE TO MONITOR.
--- NOTE | 2018-10-07 18:22 | NUR ---
PATIENT REFUSED 12:30 BOLUS TUBE FEEDING UNTIL 1630. ITWAS GIVEN AT THIS TIME. PATIENT C/O KNEE PAIN AND WAS MEDICATED WITH PRN NORCO AT 1750. WILL CONTINUE TO MONITOR.
[2018-10-07 19:14] VITALS: BP 147/69
--- NOTE | 2018-10-07 19:17 | NUR ---
AWAKE AND ALERT. RESPIRATIONS UNLABORED. PEG TUBE IN PLACE. NO ACUTE DISTRESS NOTED. CALL LIGHT IN REACH.
--- NOTE | 2018-10-08 01:24 | NUR ---
RECENTLY MEDICATED FOR PAIN AND NOW RESTING QUIETLY. NO DISTRESS NOTED.
--- NOTE | 2018-10-08 05:21 | NUR ---
MEDICATED FOR PAIN. STATES SHE DOES NOT WANT 0630 FEEDING OF OSMOLITE TO PEG TUBE STATING "I FEEL TOO FULL". LESS THAN 10CC RESIDULAL.
--- NOTE | 2018-10-08 07:29 | NUR ---
ALERT AND ORIENTED. WO C/O PAIN. RESP EVEN AND UNLABORED. CL IN REACH.
[2018-10-08 07:48] LABS: BASOPHILS 0.4 % (0-2); EOSINOPHILS 3.5 % (0-7); HEMOGLOBIN 10.8 g/dL (12-16); IMMATURE GRANULOCYTES 0.3 % (0-5); LYMPHOCYTES 34.1 % (15-50); MCH 27.3 pg (26.0-34.0); MCHC 31.8 g/dL (31.0-37.0); MCV 85.9 fL (80.0-100.0); MEAN PLATELET VOLUME 10.3 fL (7.4-10.4); MONOCYTES 13.4 % (2-11); NEUTROPHILS 48.3 % (40-80); PLATELET COUNT 325 10x3/uL (130-400); RBC 3.96 10x6/uL (4.00-5.40); RDW 17.4 % (11.5-14.5); WBC 9.1 10x3/uL (4.8-10.8)
[2018-10-08 08:00] VITALS: BP 152/60
[2018-10-08 08:13] LABS: ANION GAP 14.1 mmol/L (8-16); CALCIUM 9.3 mg/dL (8.5-10.1); CREATININE - SERUM 0.9 mg/dL (0.6-1.3); POTASSIUM - SERUM 5.1 mmol/L (3.5-5.1); URIC ACID 3.4 mg/dL (2.6-7.2)
--- NOTE | 2018-10-08 10:17 | NUR ---
SITTING UP IN ROOM. NO DISTRESS NTOED.
--- NOTE | 2018-10-08 12:31 | NUR ---
SPOKE WITH YARIEL RE: NEEDS SOFT DIET. STATES HAS TROUBLE SWALLOWING BITES OF FOOD THAT AREN'T LIQUID. INSTRUCTIONS GIVEN ON TF. WILL LET PATIENT TRY TO DO NEXT BOLUS AND SHOW HER HOW TO CRUSH MEDS ETC AND LET HER TRY TO DO HERSELF TO GET HER READY FOR DC.
--- NOTE | 2018-10-08 12:59 | NUR ---
Nutrition Follow Up: Pt stated that she feels that she is unable to swallow some solids due to bolus "getting stuck in throat." Pt said that she feels that she is able to swallow liquids better. RD offered to change diet consistency; pt refused pureed but agreed to dental and mech soft. RD encouraged pt to continue increasing po intake as able. RD spoke with EMS DIRECTOR regarding this. EMS DIRECTOR to see. Diet: Regular Mech Soft with thin liquids; Two Lars 1 can TID PO Intake: 42% meal avg BM: 10/04/18 Labs reviewed Meds noted including Reglan Rec continue regular diet with EMS DIRECTOR recs for consistencies. Will change TF regimen; if pt eats < 50% of a meal, bolus 1 can TwoCal HN. Flush PEG with 50 ml H2O before and after bolus is given. RD following.
--- NOTE | 2018-10-08 16:29 | NUR ---
NO CHANGE IN ASSESSMENT. RESP EVEN AND UNLAOBRED. NO DISTRESS NOTED. CL IN REACH.
--- NOTE | 2018-10-08 19:24 | NUR ---
PT IN BED EYES CLOSED, BED LOW, ALARM WAIVER, FLUIDS AND CALL LIGHT WITHIN REACH
[2018-10-08 22:37] VITALS: BP 152/64
--- NOTE | 2018-10-09 00:13 | NUR ---
PT IN BED EYES CLOSED,C/O HEADACHE STATES HAS HAD IT FOR 3 DAYS, LEAVING NOTE FOR DR. HDZ, BED LOW, WAIVER SIGNED, TYLENOL GIVEN PEG TUBE, STATES SWALLOWS SMALL AND SLOW, NO OTHER NEEDS STATED.
--- NOTE | 2018-10-09 01:57 | NUR ---
PT STILL C/O HEADACHE AFTER NORCO AT 2058 AND TYLENOL AT 2344, NOTE TO DR. HDZ TO VOICE CONCERNS OF PT
--- NOTE | 2018-10-09 05:10 | NUR ---
PT C/O KNEE PAIN, NOTED EDEMA IN RIGHT KNEE, PT STATS "NO INJURY TO KNEE IT JUST HURTS AND IS SWELLING FOR UNKNOWN REASON"
[2018-10-09 07:32] VITALS: BP 163/76
--- NOTE | 2018-10-09 08:45 | NUR ---
PT AM MEDS ADMINISTERED. PT DENIES NEEDS. WCTM.
--- NOTE | 2018-10-09 19:29 | NUR ---
PT IN BED EYES CLOSED, BED LOW, AROUSES TO VOICE EASILY, CALL LIGHT WITHIN REACH NO NEEDS NOTED
[2018-10-09 21:27] VITALS: BP 165/74
[2018-10-09 21:29] VITALS: BP 153/65
--- NOTE | 2018-10-10 01:13 | NUR ---
PT C/O KNEE PAIN, NOT DUE FOR NORCO, REFUSED VOLTRAN, GAVE TYLENOL 650MG PT TOOK ORALLY, STATED IT BURNED HER THROAT SUGGESTED SIPPING WATER, FLUIDS AND CALL LIGHT WITHIN REACH
--- NOTE | 2018-10-10 04:03 | NUR ---
PT IN BED EYES CLOSED, BED LOW, AROUSES EASILY TO VOICE, FLUIDS AND CALL LIGHT WITHIN REACH
--- NOTE | 2018-10-10 07:57 | NUR ---
PT RESTING IN BED. PT HAD VOMITING EPISODE ON TRACTOR TRAILER DRIVER. PT GIVEN ORDERED ZOFRAN ALONG WITH AM MEDICATIONS AT THIS TIME VIA PEG TUBE. PT DENIES NEEDS. WCTM.
[2018-10-10 07:58] VITALS: BP 136/69
[2018-10-10] MEDS ORDERED: REGLAN5 MG PO (08:09)
[2018-10-10] MEDS ORDERED: Potassium Cl oral po PO (08:10)
[2018-10-10] MEDS ORDERED: ULORIC40 MG PO (08:10)
[2018-10-10] MEDS ORDERED: NORCO-10 PO (08:11)
[2018-10-10 08:30] LABS: BASOPHILS 0.3 % (0-2); EOSINOPHILS 3.6 % (0-7); HEMATOCRIT 35.9 % (36.0-48.0); HEMOGLOBIN 11.5 g/dL (12-16); IMMATURE GRANULOCYTES 0.3 % (0-5); LYMPHOCYTES 37.1 % (15-50); MCH 27.5 pg (26.0-34.0); MCV 85.9 fL (80.0-100.0); MEAN PLATELET VOLUME 10.2 fL (7.4-10.4); MONOCYTES 12.8 % (2-11); NEUTROPHILS 45.9 % (40-80); PLATELET COUNT 312 10x3/uL (130-400); RBC 4.18 10x6/uL (4.00-5.40); RDW 17.5 % (11.5-14.5); WBC 9.4 10x3/uL (4.8-10.8)
[2018-10-10 08:40] LABS: ANION GAP 15.7 mmol/L (8-16); CALCIUM 9.2 mg/dL (8.5-10.1); CARBON DIOXIDE 23.1 mmol/L (21.0-32.0); CREATININE - SERUM 1.1 mg/dL (0.6-1.3); PHENYTOIN (DILANTIN) 10.3 ug/mL (10.0-20.0); POTASSIUM - SERUM 4.8 mmol/L (3.5-5.1); URIC ACID 2.9 mg/dL (2.6-7.2)
--- NOTE | 2018-10-10 10:15 | NUR ---
PT ADMINISTERED OWN TF, ONE CAN TWOCAL, AT THIS TIME. PT DEMONSTRATES UNDERSTANDING OF FLUSHING AND FEEDING.
--- NOTE | 2018-10-10 11:44 | NUR ---
PATIENT DISCHARGING HOME TODAY WITH FAMILY. PATIENT DECLINES HOME HEALTH AND ANY DME NEEDS. PATIENT CHOICE FORM AND IMFM FORMS SIGNED, COPY GIVEN TO PATIENT AND FILED IN CHART. DR. BOYD/MADI LAURENT 10/17/18 @ 10:45, DR. MOORE 10/17/18 @ 1:15, DR. SANTANA 10/23/18 @ 2:15. NURSE TEACHING TUBE FEEDINGS WITH PATIENT. DISCHARGE INSTRUCTIONS WITH [employer] FAXED TO PCP AND REVIEWED WITH PATIENT.
--- NOTE | 2018-10-10 12:01 | NUR ---
PT DISCHARGE INSTRUCTIONS REVIEWED, PT STATES UNDERSTANDING. PT ALSO DECLINES HOME HEALTH AT THIS TIME. PT CALLING FAMILY TO COME AND GET HER.
--- NOTE | 2018-10-10 13:31 | NUR ---
PT FAMILY ARRIVED. PT ESCORTED OUT BY HOSPITAL STAFF AND ASSISTED INTO VEHICLE. SEAT BELT IN PLACE.
== END 2018-10-10 13:32 | disposition home or self-care (01) | DRG 92 ==
LOC: D.REHAB 13:21
PROVIDERS: ADMIT Emergency Medicine; ATTEND Emergency Medicine
DX: G72.81 Critical illness myopathy (principal); N39.0 Urinary tract infection, site not specified; N17.9 Acute kidney failure, unspecified; J44.1 Chronic obstructive pulmonary disease with (acute) exacerbation; R56.9 Unspecified convulsions; I10 Essential (primary) hypertension; B96.20 Unspecified Escherichia coli [E. coli] as the cause of diseases classified elsewhere; R13.12 Dysphagia, oropharyngeal phase; B96.1 Klebsiella pneumoniae [K. pneumoniae] as the cause of diseases classified elsewhere; I25.10 Atherosclerotic heart disease of native coronary artery without angina pectoris; K21.9 Gastro-esophageal reflux disease without esophagitis; D50.9 Iron deficiency anemia, unspecified; F17.200 Nicotine dependence, unspecified, uncomplicated; R53.81 Other malaise; M10.9 Gout, unspecified; D72.829 Elevated white blood cell count, unspecified

== ENCOUNTER 2018-10-12 10:35 | Emergency (ER) | payer MEDICARE, MEDICAID ==
[~2018-10-12] VITALS: Ht 162.6 cm; Wt 60.0 kg
[~2018-10-12 10:35] MED LIST changes: +NORCO-10 PO; +Potassium Cl oral po PO; +REGLAN5 MG PO; +ULORIC40 MG PO
[2018-10-12 10:42] VITALS: BP 144/51; Ht 162.6 cm; Wt 60.0 kg
[2018-10-12] MEDS ORDERED: PREDNISONE20 MG PO (11:55)
[2018-10-12] MEDS ORDERED: HYDROCODON-ACE1 EAC2 PO (11:55)
== END 2018-10-12 12:05 | disposition home or self-care (01) ==
LOC: D.ER 10:35
DX: M25.461 Effusion, right knee (principal); M25.561 Pain in right knee

== ENCOUNTER 2018-10-16 16:37 | Emergency (ER) | payer MEDICARE, MEDICAID ==
[~2018-10-16] VITALS: Ht 162.6 cm; Wt 47.4 kg
[~2018-10-16 16:37] MED LIST changes: +HYDROCODON-ACE1 EAC2 PO; +PREDNISONE20 MG PO
[2018-10-16 17:18] VITALS: BP 100/51; Ht 162.6 cm; Wt 47.4 kg
== END 2018-10-16 18:39 | disposition left against medical advice (07) ==
LOC: D.ER 16:37
DX: M25.561 Pain in right knee (principal)

== ENCOUNTER 2018-10-21 17:17 | Emergency (ER) | payer MEDICARE, MEDICAID ==
[2018-10-21 19:02] LABS: BASOPHILS 0.3 % (0-2); EOSINOPHILS 4.4 % (0-7); HEMATOCRIT 34.3 % (36.0-48.0); HEMOGLOBIN 11.7 g/dL (12-16); IMMATURE GRANULOCYTES 0.3 % (0-5); LYMPHOCYTES 38.7 % (15-50); MCH 28.3 pg (26.0-34.0); MCHC 34.1 g/dL (31.0-37.0); MCV 83.1 fL (80.0-100.0); MEAN PLATELET VOLUME 10.5 fL (7.4-10.4); MONOCYTES 9.6 % (2-11); NEUTROPHILS 46.7 % (40-80); PLATELET COUNT 268 10x3/uL (130-400); RBC 4.13 10x6/uL (4.00-5.40); RDW 17.7 % (11.5-14.5); WBC 11.3 10x3/uL (4.8-10.8)
[2018-10-21] MEDS ORDERED: VOLTAREN75 MG PO (20:05)
[2018-10-21 20:52] LABS: ERYTHROCYTE SEDIMENTATION RATE 68 mm/hr (0-30)
== END 2018-10-21 19:20 | disposition home or self-care (01) ==
LOC: D.ER 17:17
PROVIDERS: Family Medicine
DX: M25.561 Pain in right knee (principal)

== ENCOUNTER 2018-10-31 13:53 | Emergency (ER) | payer MEDICARE, MEDICAID ==
[~2018-10-31] VITALS: Ht 162.6 cm; Wt 47.3 kg
[~2018-10-31 13:53] MED LIST changes: +VOLTAREN75 MG PO
[2018-10-31 14:09] VITALS: BP 124/58; Ht 162.6 cm; Wt 47.3 kg
== END 2018-10-31 15:50 | disposition left against medical advice (07) ==
LOC: D.ER 13:53
DX: Z43.1 Encounter for attention to gastrostomy (principal)

== ENCOUNTER 2018-11-01 06:56 | Emergency (ER) | payer MEDICARE, MEDICAID ==
[~2018-11-01] VITALS: Ht 162.6 cm; Wt 47.3 kg
[2018-11-01 07:13] VITALS: BP 117/47; Ht 162.6 cm; Wt 47.3 kg
== END 2018-11-01 10:17 | disposition left against medical advice (07) ==
LOC: D.ER 06:56
DX: R13.10 Dysphagia, unspecified (principal); D64.9 Anemia, unspecified; I10 Essential (primary) hypertension; K21.9 Gastro-esophageal reflux disease without esophagitis; Z93.1 Gastrostomy status

== ENCOUNTER 2018-11-02 15:21 | Inpatient (IN) | payer MEDICARE, MEDICAID ==
--- NOTE | 2018-11-02 19:07 | NUR ---
PATIENT UP AT SINK. PATIENT HAS NO COMPLAINTS AT THIS TIME. NO DISTRESS NOTED.
[2018-11-02 19:38] LABS: BASOPHILS 0.2 % (0-2); EOSINOPHILS 1.6 % (0-7); HEMOGLOBIN 10.5 g/dL (12-16); IMMATURE GRANULOCYTES 0.1 % (0-5); LYMPHOCYTES 43.5 % (15-50); MCH 27.5 pg (26.0-34.0); MCHC 33.9 g/dL (31.0-37.0); MCV 81.2 fL (80.0-100.0); MEAN PLATELET VOLUME 10.1 fL (7.4-10.4); MONOCYTES 9.7 % (2-11); NEUTROPHILS 44.9 % (40-80); RBC 3.82 10x6/uL (4.00-5.40); RDW 17.4 % (11.5-14.5); WBC 8.7 10x3/uL (4.8-10.8)
[2018-11-02 19:42] LABS: PLATELET COUNT 168 10x3/uL (130-400)
[2018-11-02 19:54] LABS: ALBUMIN 3.3 g/dL (3.4-5.0); ANION GAP 24.6 mmol/L (8-16); BILIRUBIN - TOTAL 0.2 mg/dL (0.2-1.3); CALCIUM 8.7 mg/dL (8.5-10.1); CARBON DIOXIDE 13.5 mmol/L (21.0-32.0); CREATININE - SERUM 3.4 mg/dL (0.6-1.3); POTASSIUM - SERUM 4.1 mmol/L (3.5-5.1); PROTEIN - SERUM 8.2 g/dL (6.4-8.2); THYROID STIMULATING HORMONE 2.99 uIU/mL (0.36-3.74)
[2018-11-02 20:00] VITALS: BP 93/37
--- NOTE | 2018-11-02 23:30 | NUR ---
PATIENT LAYING IN BED. PATIENT HAS NO COMPLAINTS AT THIS TIME. NO DISTRESS NOTED.
[2018-11-03] VITALS: BP 102/39
--- NOTE | 2018-11-03 02:11 | NUR ---
PATIENT LAYING IN BED. NO COMPLAINTS AT THIS TIME. NO DISTRESS NOTED.
[2018-11-03 04:00] VITALS: BP 89/40
[2018-11-03 04:57] LABS: BASOPHILS 0.4 % (0-2); EOSINOPHILS 2.2 % (0-7); HEMATOCRIT 26.3 % (36.0-48.0); HEMOGLOBIN 8.8 g/dL (12-16); IMMATURE GRANULOCYTES 0.1 % (0-5); LYMPHOCYTES 50.4 % (15-50); MCH 27.6 pg (26.0-34.0); MCHC 33.5 g/dL (31.0-37.0); MCV 82.4 fL (80.0-100.0); MEAN PLATELET VOLUME 9.8 fL (7.4-10.4); NEUTROPHILS 34.9 % (40-80); PLATELET COUNT 137 10x3/uL (130-400); RBC 3.19 10x6/uL (4.00-5.40); RDW 17.6 % (11.5-14.5); WBC 8.9 10x3/uL (4.8-10.8)
[2018-11-03 05:19] LABS: ALBUMIN 2.6 g/dL (3.4-5.0); BILIRUBIN - TOTAL 0.11 mg/dL (0.2-1.3); CALCIUM 8.3 mg/dL (8.5-10.1); CARBON DIOXIDE 14.1 mmol/L (21.0-32.0); CREATININE - SERUM 3.5 mg/dL (0.6-1.3); POTASSIUM - SERUM 4.1 mmol/L (3.5-5.1); PROTEIN - SERUM 6.8 g/dL (6.4-8.2)
--- NOTE | 2018-11-03 06:25 | NUR ---
PATIENT LAYING IN BED. NO COMPLAINTS AT THIS TIME. NO DISTRESS NOTED.
--- NOTE | 2018-11-03 07:37 | NUR ---
PT AWAKE AND ORIENTED. NO COMPLAINTS/COMMENTS/CONCERNS STATED AT THIS TIME. CL INREACH, SRX2.
[2018-11-03 07:51] VITALS: BP 89/34
--- NOTE | 2018-11-03 09:31 | NUR ---
HELD MEDICATIONS THAT MAY EFFECT B/P. PTS B/P WAS 89/34. NOT COMFORTABLE GIVING THOSE MEDS.
--- NOTE | 2018-11-03 09:37 | NUR ---
GIVING 500CC BOLUS TO HELP RAISE B/P. LETTING KNOW
[2018-11-03 10:50] VITALS: BP 91/37
--- NOTE | 2018-11-03 12:32 | NUR ---
I have reviewed this patient and I concur with the Shift Assessment completed by the Licensed Practical Nurse today this shift.
[2018-11-03 13:30] VITALS: BMI 16.6
[2018-11-03 15:16] VITALS: BP 112/41
[2018-11-03 17:10] LABS: % SATURATION 62 % (15-55); IRON 105 ug/dl (35-150); TOTAL IRON BIND CAPACITY 169 ug/dl (260-445); UNSAT IRON BIND CAPACITY 64 ug/dl (150-375)
--- NOTE | 2018-11-03 18:41 | NUR ---
PT LYING IN BED, NO COMPLAINTS OR CONCERNS AT THIS TIME. CL IN REACH SRX2
[2018-11-03 20:13] VITALS: BP 113/41
--- NOTE | 2018-11-03 22:20 | NUR ---
INITIAL ROUNDS COMPLETED AT 1910 HRS. PT DENIED ANY DISCOMFORT. ASSESSMENT COMPLETED AT 2015 HRS. VSS. ALERT AND ORIENTED TO PERSON, PLACE AND TIME. MCGILL. IV TO RWRISTWITH NS AT 75CC/HR. IV PATENT. LUNGS DIMINISHED IN BASES BILAT. PT UP AD ALYSON. GAIT EVENA ND STEADY. UNUSES PEG TUBE NOTED. PM MEDS GIVEN. PT CURRENTLY WATCHING TV. SR UP X2, CALL LIGHT WITHIN REACH.
--- NOTE | 2018-11-03 23:40 | NUR ---
PT RESTING WITH EYES CLOSED. RESP EVEN AND REGULAR. SR UP X2, CALL LIGHT WITHIN REACH.
[2018-11-04] VITALS (7 sets, daily range): BP systolic 108–147; BP diastolic 44–61
--- NOTE | 2018-11-04 02:00 | NUR ---
PT RESTING WITH EYES CLOSED. RESP EVEN AND REGULAR. SR UP X2, CALL LIGHT WITHIN REACH.
--- NOTE | 2018-11-04 04:33 | NUR ---
PT RESTING WITH EYES CLOSED. RESP EVEN AND REGULAR. SR UP X2, CALL LIGHT WITHIN REACH.
[2018-11-04 05:29] LABS: BASOPHILS 0.3 % (0-2); EOSINOPHILS 2.9 % (0-7); HEMATOCRIT 23.1 % (36.0-48.0); HEMOGLOBIN 7.7 g/dL (12-16); LYMPHOCYTES 50.9 % (15-50); MCHC 33.3 g/dL (31.0-37.0); MCV 81.1 fL (80.0-100.0); MONOCYTES 12.7 % (2-11); NEUTROPHILS 33.2 % (40-80); PLATELET COUNT 129 10x3/uL (130-400); RBC 2.85 10x6/uL (4.00-5.40); RDW 17.7 % (11.5-14.5); WBC 6.6 10x3/uL (4.8-10.8)
[2018-11-04 05:34] LABS: ANION GAP 17.1 mmol/L (8-16); CALCIUM 8.2 mg/dL (8.5-10.1); CARBON DIOXIDE 14.8 mmol/L (21.0-32.0); POTASSIUM - SERUM 3.9 mmol/L (3.5-5.1)
[2018-11-04 05:36] LABS: CREATININE - SERUM 1.8 mg/dL (0.6-1.3)
--- NOTE | 2018-11-04 06:22 | NUR ---
VSS THROUGHOUT NIGHT. PT DENIED ANY DISCOMFORT. STERILE CONTAINER GIVEN TO PT FOR UA. PROCESS EXPLAINED TO PT. PT STATED UNDERSTANDING. NEEDS MET; WILL CONTINUE TO MONITOR.
--- NOTE | 2018-11-04 07:35 | NUR ---
PT SITTING ON EDGE OF BED. NO COMPLAINTS/CONCERNS AT THIS TIME. CL IN REACH. SRX2.
[2018-11-04 10:15] LABS: APPEARANCE CLEAR (CLEAR); BILIRUBIN NEGATIVE (NEGATIVE); COLOR STRAW (YELLOW); GLUCOSE NEGATIVE (NEGATIVE); KETONE NEGATIVE (NEGATIVE); NITRITE NEGATIVE (NEGATIVE); PROTEIN 1+ mg/dL (NEGATIVE); UROBILINOGEN NORMAL (NORMAL)
[2018-11-04 10:16] LABS: RED CELLS - URINE 0-5 /hpf (0-5); WHITE CELLS - URINE 0-5 /hpf (0-5)
[2018-11-04 10:17] LABS: AMORPHOUS SEDIMENT >1+ /lpf (NONE SEEN); GRANULAR CAST 0-5 /lpf (NONE SEEN)
[2018-11-04 10:31] LABS: PROTEIN - URINE 46.1 mg/dL (0.0-11.9)
--- NOTE | 2018-11-04 11:27 | NUR ---
PT STATES SHE WILL BE GOING HOME TODAY. THAT WE ARE WAISTING A BED AND OUR TIME TAKING CARE OF HER. PT STATES SHE'S JUST FINE AND CAN TAKE THE SAME MEDICATIONS AT HOME. INFORMED ERIC.
--- NOTE | 2018-11-04 15:03 | NUR ---
PT STATES SHE'S WILLING TO GO AMA SHOULD SHE NOT GET DISHCARGE ORDERS RIGHT NOW. TRIED TO CALL DR VELASQUEZ TO LET HIM KNOW. PT IS NOW PULLING OUT THEIR IV. JUST GOING TO HAVE HER SIGN AMA FORMS AND LET HER LEAVE. PT STTAES THAT WE'VE DONE NOTHING FOR HER THESE PAST 2 DAYS AND THAT HER BED COULD BE BETTER USED FOR SOMEONE THEY WOULD ACTUALLY HELP. I ALERTED ERIC TO THIS POSSIBILITY THIS MORNING AND ASKED FOR THE PT TO BE DISCHARGED SINCE SHE WAS STATING SHE WOULD GO REGARDLESS. WILL ATTEMPT TO LET THENM KNOW AGAIN BUT PT IS ALREADY STATING SHE HAS A RIDE ON THE WAY AND WILL BE LEAVING.
--- NOTE | 2018-11-04 15:21 | NUR ---
DR. VELASQUEZ CALLED TOLD ME TO INFORM THE PATIENT SHE WAS BLEEDING INSIDE, AND THAT WAS WHAT WAS GOING ON. THAT SHE WAS PUT ON A PROTONIX DRIP AND THAT SHE NEEDED TO STAY. I INFORMED THE PATIENT. SHE IS VERY UPSET THAT HE IS TELLING HER THIS NOW AND STATES SHE WILL STAY UNTIL TOMORROW BUT THAT SHE WILL BE LEAVING IN THE MORNING "HEMORRHAGE OR NOT". PT HAD ALREADY HAD I/V TAKEN OUT, PER HER INSISTANCE, AFTER SHE SIGNED HER AMA PAPERWORK. PT IS EXTREMELY UPSET WITH THE DR, BUT STATES SHE HAS NO ILL FEELINGS TOWARDS THE NURSES AND HOLDS NO BLAME ON ANYONE ELSE INVOLVED IN HER CARE. WILL MAKE DR. VELASQUEZ AWARE OF HER CHANGE IN MIND.
--- NOTE | 2018-11-04 18:03 | NUR ---
I have reviewed this patient and I concur with the Shift Assessment completed by the Licensed Practical Nurse today this shift.
--- NOTE | 2018-11-04 20:38 | NUR ---
INITIAL ROUNDS COMPLETED AT 1910 HRS. PT DENIED ANY DISCOMFORT. ASSESSMENT COMPLETED AT 1940 HRS. VSS. IV TO RFA WITH NS AT 75CC/HR AND PROTONIX DRIP AT 10CC/HR. IV PATENT. LUNGS DIMINISHED IN BASES BILAT. MCGILL. UP AD ALYSON. ALERT AND ORIENTED TO PERSON, PLACE AND TIME. WILL CONTINUE TO MONITOR. SRUP X2, CALL LIGHT WITHIN REACH.
--- NOTE | 2018-11-04 22:51 | NUR ---
PT WATCHING TV. NO DISTRESS NOTED. CALL LIGHT WITHIN REACH.
--- NOTE | 2018-11-05 00:53 | NUR ---
PT RESTING WITH EYES CLOSED. RESP EVEN AND REGULAR. SR UP X2, CALL LIGHT WITHIN REACH.
--- NOTE | 2018-11-05 02:35 | NUR ---
PT RESTING WITH EYES CLOSED. RESP EVEN AND REGULAR. SR UP X2, CALL LIGHT WITHIN REACH.
[2018-11-05 03:25] VITALS: BP 131/51
[2018-11-05 03:58] LABS: BASOPHILS 0.3 % (0-2); EOSINOPHILS 4.2 % (0-7); HEMATOCRIT 22.4 % (36.0-48.0); HEMOGLOBIN 7.6 g/dL (12-16); LYMPHOCYTES 47.4 % (15-50); MCH 27.4 pg (26.0-34.0); MCHC 33.9 g/dL (31.0-37.0); MCV 80.9 fL (80.0-100.0); MONOCYTES 15.6 % (2-11); NEUTROPHILS 32.5 % (40-80); PLATELET COUNT 135 10x3/uL (130-400); RBC 2.77 10x6/uL (4.00-5.40); RDW 17.9 % (11.5-14.5); WBC 6.5 10x3/uL (4.8-10.8)
[2018-11-05 04:06] LABS: ANION GAP 19.5 mmol/L (8-16); CALCIUM 8.1 mg/dL (8.5-10.1); CARBON DIOXIDE 13.4 mmol/L (21.0-32.0); POTASSIUM - SERUM 3.9 mmol/L (3.5-5.1)
[2018-11-05 04:14] LABS: CREATININE - SERUM 1.2 mg/dL (0.6-1.3)
--- NOTE | 2018-11-05 05:10 | NUR ---
IV CHANGED TO SL PER PT INSISTANCE. STATES WILL DISCUSS IN AM WITH MD TO DECIDE IF SHE WANTS TO RESTART IT.
--- NOTE | 2018-11-05 05:59 | NUR ---
PT RESTING WITH EYES CLOSED. RESP EVEN AND REGULAR. NEEDS MET; WILL CONTINUE TO MONITOR.
--- NOTE | 2018-11-05 07:44 | NUR ---
PT RESTING COMFORTABLY IN BED, RESP EVEN AND NONLABORED ON RA. RT FA SL. PT REFUSES TO BE HOOKED BACK UP TO IV PROTONIX AND FLUIDS UNTIL SEEN BY DOCTOR TODAY. PEG TUBE NOTED TO ABD. PT DENIES ANY NEEDS AT THIS TIME. CALL LIGHT IN REACH, NAD NOTED, WILL CONTINUE PLAN OF CARE.
--- NOTE | 2018-11-05 08:57 | NUR ---
AM MEDS GIVEN AT THIS TIME. PT UP TO SIDE OF BED, DENIES ANY NEEDS AT THIS TIME. CALL LIGHT IN REACH, NAD NOTED, WILL CONTINUE TO MONITOR.
[2018-11-05 09:00] VITALS: BP 145/48
[2018-11-05 12:25] VITALS: BP 124/54
--- NOTE | 2018-11-05 13:00 | NUR ---
PT'S SISTER AT BEDSIDE, HAD ME HOOK PT BACK UP TO FLUIDS AND PROTONIX DRIP. PT UP TO SIDE OF BED, DENIES ANY NEEDS AT THIS TIME. CALL LIGHT IN REACH, NAD NOTED, WILL CONTINUE TO MONITOR.
--- NOTE | 2018-11-05 16:45 | NUR ---
SPEECH THERAPIST AT BEDSIDE, DOING SWALLOW EVAL. PT DENIES ANY NEEDS AT THIS TIME. CALL LIGHT IN REACH, NAD NOTED.
--- NOTE | 2018-11-05 17:39 | NUR ---
PER DR. STOVER TRIALYSIS CAN BE REMOVED, AND ALL AM LABS NEED TO BE CANCELED, SINCE PT IS JUST WAITING FOR DIALYSIS CHAIR IN [place].
--- NOTE | 2018-11-05 19:55 | NUR ---
PT LYING IN BED. CALL LIGHT IN REACH. PT DENIES NEEDS OR PAIN. BED IN LOW. SIDE RAILS X2. PT GETS UP TO USE BATHROOM. PT HAS PEG TUBE BUT DOES NOT USE. RIGHT FOREARM IV INTACT. LUNGS CLEAR. BOWEL ACTIVE X4. A/O X4. WILL CONTINUE TO MONITOR.
[2018-11-05 20:00] VITALS: BP 128/53
[2018-11-06] VITALS: BP 137/57
--- NOTE | 2018-11-06 03:45 | NUR ---
PT LYING IN BED. CALL LIGHT IN REACH. DENIES NEEDS OR PAIN AT THIS TIME. WCTM
[2018-11-06 04:00] VITALS: BP 116/53
--- NOTE | 2018-11-06 04:24 | NUR ---
I have reviewed this patient and I concur with the Shift Assessment completed by the Licensed Practical Nurse today this shift.
[2018-11-06 06:58] LABS: ANION GAP 15.6 mmol/L (8-16); CALCIUM 7.9 mg/dL (8.5-10.1); CARBON DIOXIDE 16.3 mmol/L (21.0-32.0); CREATININE - SERUM 0.9 mg/dL (0.6-1.3); POTASSIUM - SERUM 3.9 mmol/L (3.5-5.1)
[2018-11-06 07:17] LABS: BASOPHILS 0.3 % (0-2); EOSINOPHILS 4.6 % (0-7); HEMATOCRIT 22.9 % (36.0-48.0); HEMOGLOBIN 7.6 g/dL (12-16); IMMATURE GRANULOCYTES 0.2 % (0-5); LYMPHOCYTES 48.9 % (15-50); MCH 27.2 pg (26.0-34.0); MCHC 33.2 g/dL (31.0-37.0); MCV 82.1 fL (80.0-100.0); MEAN PLATELET VOLUME 9.9 fL (7.4-10.4); MONOCYTES 14.2 % (2-11); NEUTROPHILS 31.8 % (40-80); PLATELET COUNT 144 10x3/uL (130-400); RBC 2.79 10x6/uL (4.00-5.40); RDW 17.8 % (11.5-14.5); WBC 6.5 10x3/uL (4.8-10.8)
--- NOTE | 2018-11-06 07:30 | NUR ---
RECEIVED A/A/OX4. DENIES ANY NEEDS AT THIS TIME AND NO REQUESTS VOICED. ASSESSMENT COMPLETED AND WILL CPOC.
[2018-11-06 07:47] VITALS: BP 94/67
[2018-11-06 10:14] LABS: FOLATE (FOLIC ACID) - SERUM 10.6 ng/mL (>3.0)
[2018-11-06 12:18] VITALS: BP 106/83
--- NOTE | 2018-11-06 14:16 | MORECARE ---
CASE MANAGEMENT DISCHARGE SUMMARY PATIENT: MARIAM THAYER UNIT: [id number] ADM DATE: 11/03/18 AGE: 68 : 50 SEX: F ROOM/BED: D.[facility] AUTHOR: JHONNY LUNA PHYSICIAN: REFERRING PHYSICIAN: SPRING BOYD MD DATE OF SERVICE: 11/06/18 Discharge Plan Patient Name: MARIAM THAYER Facility: [facility]:[place] : 1950 Planned Disposition: Home Anticipated Discharge Date: 11/07/18 Discharge Date: Expected LOS: 4 Initial Reviewer: [email or web address] Initial Review Date: 11/06/2018 Generated: 11/06/18 3:16 pm DCPIA - Discharge Planning Initial Assessment Updated by TROY: Abelardo Morse on 11/06/18 2:14 pm * Is the patient Alert and Oriented? Yes * How many steps to enter\exit or inside your home? 12 * PCP DR. BOYD * Pharmacy [facility] ON [facility] * Preadmission Environment Home Alone * ADLs Independent * Equipment Walker * Other Equipment NOT USING WALKER CURRENTLY NO MEDICAL EQUIPMENT PROVIDER PREFERENCE * List name and contact numbers for known caregivers / representatives who currently or will assist patient after discharge: SARA THAYER, AMALIA, * Verbal permission to speak to the caregivers and representatives has been obtained from the patient. N/A * Community resources currently utilized None * Please name any agencies selected above. NONE * Additional services required to return to the preadmission environment? No * Can the patient safely return to the preadmission environment? Yes * Has this patient been hospitalized within the prior 30 days at any hospital? Yes Coverage Notice Reviewer: [email or web address] - Abelardo Morse Notice Issued Date-Time: 11/06/2018 9:30 Notice Type: IM Discharge Notice Notice Delivered To: Patient Relationship to Patient: Oriental Rug Stretcher Name: Delivery Method: HAND - Hand Delivered Dara Days: Prior Verbal Notification: Recipient Understood Notice: Yes Recipient Signature: Yes Med Rec Note Co-signed by Attending: Coverage Notice Comment: Patient Name: MARIAM THAYER Page [phone] at 1416 All edits/amendments must be made on the electronic document DICTATION DATE: 11/06/181414 SOA INTEGRATION DEVELOPER: KWAME 11/06/181414 RPT#: [id number] DC DATE: STATUS: ADM IN [facility] [address] [place] [address] END OF REPORT
--- NOTE | 2018-11-06 14:26 | MORECARE ---
CASE MANAGEMENT DISCHARGE SUMMARY PATIENT: MARIAM THAYER UNIT: [id number] ADM DATE: 11/03/18 AGE: 68 : 50 SEX: F ROOM/BED: D.9120 AUTHOR: CHERYL,DOC PHYSICIAN: REFERRING PHYSICIAN: SPRING BOYD MD DATE OF SERVICE: 11/06/18 Discharge Plan Patient Name: MARIAM THAYER Facility: [facility]:[place] : 1950 Planned Disposition: Home Anticipated Discharge Date: 11/07/18 Discharge Date: Expected LOS: 4 Initial Reviewer: [email or web address] Initial Review Date: 11/06/2018 Generated: 11/06/18 3:26 pm Comments DCP- Discharge Planning Updated by [email or web address]: Abelardo Morse on 11/06/18 1:[address] Patient Name: MARIAM THAYER Admission Status: Urgent Accout number: [id number] Admission Date: 11-03-2018 : 1950 Admission Diagnosis: Attending: DEB, Current LOS: 3 Anticipated DC Date: 11-07-2018 Planned Disposition: Home Primary Insurance: [employer] ADV Discharge Planning Comments: CM MET WITH PT IN ROOM TO DISCUSS DISCHARGE PLANNING AND NEEDS. PT REPORTS LIVING AT HOME INDEPENDENTLY AND ALONE. PT HAS WALKER SHE DOES NOT USE AND NO MEDICAL EQUIPMENT PROVIDER PREFERENCE. PT HAS NO OUTSIDE SERVICES ASSISTING IN THE HOME. CM DISCUSSED AVAILABILITY OF HOME HEALTH, REHAB SERVICES AND MEDICAL EQUIPMENT. PT DENIES DISCHARGE NEEDS AND REPORTS FEELING READY TO LEAVE NOW. PT REPORTS HER SON WILL PICK HER UP FOR DISCHARGE HOME. IMPORTANT MESSAGE FROM MEDICARE PROVIDED AND EXPLAINED. PT REPORTS PLAN TO RETURN HOME ALONE AT DISCHARGE. FAMILY TO TRANSPORT. PT DENIES DISCHARGE NEEDS. CM TO FOLLOW AND ASSIST NEEDED. Corner Cutter Machine Operator: Abelardo Morse DCPIA - Discharge Planning Initial Assessment Updated by [email or web address]: Abelardo Morse on 11/06/18 2:14 pm * Is the patient Alert and Oriented? Yes * How many steps to enter\exit or inside your home? 12 * PCP DR. BOYD * Pharmacy [facility] ON [address] * Preadmission Environment Home Alone * ADLs Independent * Equipment Walker * Other Equipment NOT USING WALKER CURRENTLY NO MEDICAL EQUIPMENT PROVIDER PREFERENCE * List name and contact numbers for known caregivers / representatives who currently or will assist patient after discharge: SARA THAYER, SON, * Verbal permission to speak to the caregivers and representatives has been obtained from the patient. N/A * Community resources currently utilized None * Please name any agencies selected above. NONE * Additional services required to return to the preadmission environment? No * Can the patient safely return to the preadmission environment? Yes * Has this patient been hospitalized within the prior 30 days at any hospital? Yes Coverage Notice Reviewer: [email or web address] Sana Morse Notice Issued Date-Time: 11/06/2018 9:30 Notice Type: IM Discharge Notice Notice Delivered To: Patient Relationship to Patient: Stereoptician Name: Delivery Method: HAND - Hand Delivered Dara Days: Prior Verbal Notification: Recipient Understood Notice: Yes Recipient Signature: Yes Med Rec Note Co-signed by Attending: Coverage Notice Comment: Last DP export: 11/06/18 1:16 p Patient Name: MARIAM THAYER Page [phone] at 1426 All edits/amendments must be made on the electronic document DICTATION DATE: 11/06/18 1426 COMPUTER FORENSIC SPECIALIST: KWAME 11/06/18 1426 RPT#: [id number] DC DATE: STATUS: ADM IN [facility] [address] [place] [address] END OF REPORT
--- NOTE | 2018-11-06 16:05 | NUR ---
MARIANNE HUERTA IN TO SEE PT AND PEG TUBE REMOVED. DRESSING APPLIED. PT TOLERATED WELL WITH NO C/O PAIN.
--- NOTE | 2018-11-06 16:56 | NUR ---
I have reviewed this patient and I concur with the Shift Assessment completed by the Licensed Practical Nurse today this shift.
[2018-11-06 19:25] VITALS: BP 132/50
--- NOTE | 2018-11-06 19:35 | NUR ---
PT STATES SHE UNABLE TO SLEEP, BECAUSE OF THE IV MACHINE HAS BEEN BEEBING WHOLE DAY. CHANGED IV MACHINE, NO NOISE ARE MADE, PT REST QUIELTY. CALL LIGHT IN REACH.
[2018-11-06 20:00] VITALS: BP 126/50
[2018-11-07] VITALS: BP 149/56
--- NOTE | 2018-11-07 03:00 | NUR ---
REST QUIETLY IN BED, CALL LIGHT IN REACH.
[2018-11-07 04:00] VITALS: BP 148/60
--- NOTE | 2018-11-07 05:31 | NUR ---
PT PULL OUT IV, REFUSED TO START IV.
--- NOTE | 2018-11-07 07:30 | NUR ---
A/A/OX4. PT REMAINS NPO FOR EGD TODAY AND VERBALILZES UNDERSTANDING OF INSTRUCTIONS. IV OUT AT PRESENT TIME, BUT WILL BE RESTARTED THIS AM. ASSESSMENT COMPLETED AND NO REQUESTS VOICED. WILL CONTINUE POC.
--- NOTE | 2018-11-07 08:30 | NUR ---
IV RESTARTED IN LEFT WRIST WITH 22 GAUGE X 1 ATTEMPT BY VASCULAR NURSE. IV NOW INFUSING WELL. NO REQUESTS.
[2018-11-07 08:35] LABS: CALCIUM 7.8 mg/dL (8.5-10.1); CARBON DIOXIDE 15.1 mmol/L (21.0-32.0); CREATININE - SERUM 0.8 mg/dL (0.6-1.3); GLUCOSE 88 mg/dL (74-106); POTASSIUM - SERUM 3.5 mmol/L (3.5-5.1); SODIUM 148 mmol/L (136-145); eGFR NON AFRICAN AMERICAN 75 mL/min (90-120)
[2018-11-07 08:36] LABS: CALC OSMOLALITY 294 mosm/kg (275-300); UREA NITROGEN 17 mg/dL (7-18)
[2018-11-07 08:37] LABS: CHLORIDE - SERUM 116 mmol/L (98-107)
[2018-11-07 09:21] VITALS: BP 175/72
[2018-11-07 11:58] LABS: BASOPHILS 0.3 % (0-2); EOSINOPHILS 3.9 % (0-7); HEMOGLOBIN 8.1 g/dL (12-16); IMMATURE GRANULOCYTES 0.1 % (0-5); LYMPHOCYTES 37.7 % (15-50); MCH 27.4 pg (26.0-34.0); MCHC 33.8 g/dL (31.0-37.0); MCV 81.1 fL (80.0-100.0); MEAN PLATELET VOLUME 9.3 fL (7.4-10.4); MONOCYTES 10.9 % (2-11); NEUTROPHILS 47.1 % (40-80); PLATELET COUNT 136 10x3/uL (130-400); RBC 2.96 10x6/uL (4.00-5.40); RDW 17.8 % (11.5-14.5); WBC 7.1 10x3/uL (4.8-10.8)
[2018-11-07 12:07] VITALS: BP 182/58
--- NOTE | 2018-11-07 12:24 | NUR ---
I have reviewed this patient and I concur with the Shift Assessment completed by the Licensed Practical Nurse today this shift.
--- NOTE | 2018-11-07 13:01 | NUR ---
PT CALLED ME IN ROOM AND STATES SHE IS TIRED OF WAITING ON HER EGD TO BE DONE. TALKED WITH GI LAB AND WILL BE AROUND 5 PM BEFORE IT WILL BE DONE. PT STATES SHE WANTED TO JUST LEAVE HERE, SHE CAN SIT ALL DAY AT HOME INSTEAD OF HERE AND JUST COME BACK LATER. ADVISED IF SHE SIGNS OUT AMA, HER INSURANCE WILL NOT PAY FOR THE HOSPITAL STAY. STATES IF SHE NEEDS TO GO TO HOSPITAL AGAIN, SHE WILL GO TO [facility] WHERE THERE ARE NOT BUGS CRAWLING ON THE FLOOR AND SHE WILL BE TREATED BETTER. PT STATES SHE WILL STAY TILL 5 AND IF NOT DONE BY THEN, SHE WILL LEAVE AND TELL THE INSURANCE HOW SHE WAS TREATED HERE AND MADE HER STARVE ALL DAY.
--- NOTE | 2018-11-07 13:26 | NUR ---
Nutrition follow-up: Pt is currently NPO for EGD PO intake of meals has been ~40% average Labs reviewed wt: 109# +BM RDN following.
[2018-11-07 15:57] VITALS: BP 172/65
--- NOTE | 2018-11-07 17:20 | NUR ---
RETURNED TO ROOM VIA BED FROM GI LAB. SUPPER TRAY ORDERED. IV REMAINS PATENT AND INFUSING WELL. PT IS A/A/OX4.
--- NOTE | 2018-11-07 19:45 | NUR ---
RESUMING PT CARE. PT IS ALERT LAYING IN BED. NO C/O VOICED. NO S/S OF DISTRESS NOTED. BED IN LOW POSITION WITH CALL LIGHT IN REACH. WILL CONTINUE TO MONITOR PT AND FOLLOW PLAN OF CARE.
[2018-11-07 20:00] VITALS: BP 153/76
[2018-11-08 04:00] VITALS: BP 148/70; BP 177/78
[2018-11-08 05:12] LABS: BASOPHILS 0.1 % (0-2); EOSINOPHILS 2.1 % (0-7); IMMATURE GRANULOCYTES 0.2 % (0-5); LYMPHOCYTES 32.7 % (15-50); MCH 27.5 pg (26.0-34.0); MCHC 34.2 g/dL (31.0-37.0); MCV 80.6 fL (80.0-100.0); MEAN PLATELET VOLUME 9.9 fL (7.4-10.4); MONOCYTES 9.6 % (2-11); NEUTROPHILS 55.3 % (40-80); RBC 2.47 10x6/uL (4.00-5.40); WBC 8.2 10x3/uL (4.8-10.8)
[2018-11-08 05:28] LABS: HEMATOCRIT 19.9 % (36.0-48.0); HEMOGLOBIN 6.8 g/dL (12-16); PLATELET COUNT 69 10x3/uL (130-400)
[2018-11-08 05:34] LABS: CALC OSMOLALITY 288 mosm/kg (275-300); CALCIUM 7.8 mg/dL (8.5-10.1); CARBON DIOXIDE 15.2 mmol/L (21.0-32.0); CREATININE - SERUM 0.8 mg/dL (0.6-1.3); GLUCOSE 92 mg/dL (74-106); POTASSIUM - SERUM 3.5 mmol/L (3.5-5.1); SODIUM 145 mmol/L (136-145); UREA NITROGEN 13 mg/dL (7-18); eGFR NON AFRICAN AMERICAN 75 mL/min (90-120)
[2018-11-08 06:00] LABS: CHLORIDE - SERUM 116 mmol/L (98-107)
--- NOTE | 2018-11-08 07:18 | NUR ---
AM ROUNDING DONE WITH PATIENT UP WALKING IN ROOM. DENIES NEEDS EXCEPT WANTING TO GO HOME. ON ROOM AIR. LEFT WRIST PIV SEEN WITH NS INFUSING AT 75 CC/HR. BLOOD COUNT IS DOWN, ACCESS LIAISON IS NOTIFING THE DOCTORS. WILL MONITOR.
--- NOTE | 2018-11-08 07:39 | NUR ---
COMPLAINTS OF HEADACE 04/18, NORCO GIVEN ORDERED.
--- NOTE | 2018-11-08 07:42 | NUR ---
CRITICAL LAB- H&H 6.8, HCT-19.9, PLAT-69 AND CHLORIDE-116. RESULTS REPORTED TO NURSE PRACTIONER URSULA BARBER. SHE ORDERED 2 UNITS OF BLOOD. PER URSULA I WAS TOLD TO LET DR. HERNANDEZ AND CONSULTING DR. ARRINGTON KNOW RESULTS. PER DR. ARRINGTON ORDER A BLEEDING SCAN AND A OCCULT STOOL. DR. CRISOSTOMO WAS CERTIFIED TECHNICIAN SPECIALIST FOR DR. HERNANDEZ AND WAS NOTIFIED OF RESULTS.
[2018-11-08 08:15] VITALS: BP 155/88
--- NOTE | 2018-11-08 08:23 | NUR ---
PATIENT STATES THAT HER HEADACHE IS "BETTER". SHE IS IN A MUCH BETTER MOOD NOW. SMILES AND THANKS ME FOR GIVING HER HER MEDS. SHE WAS VERY AGGITATED EARLIER AT BEGINNING OF SHIFT.
--- NOTE | 2018-11-08 09:14 | NUR ---
MIMA MYERS RN UNABLE TO RE-SITE IV. MAYO FU RN VASCULAR NURSE NOTIFIED. SHE STATES THAT IT WILL BE AWHILE. THIS IS A DELAY IN TRANSFUSING BLOOD.
--- NOTE | 2018-11-08 10:40 | NUR ---
MAYO FU, COLD ROLLING SUPERVISOR NURSE TO SITE 20 G. TO LEFT UPPER ARM X 1 STICK. LEFT WRIST IV REMOVED WITH CATH TIP INTACT.
--- NOTE | 2018-11-08 11:02 | NUR ---
1055-1/2 UNIT OF BLOOD STARTED SLOWLY TRANSFUING. WILL MONITOR.
--- NOTE | 2018-11-08 12:11 | NUR ---
BLOOD INFUSING WITHOUT ANY PROBLEMS OF REACTION AT THIS TIME. WILL CONTINUE TO MONITOR.
[2018-11-08 13:09] VITALS: BP 159/61
[2018-11-08 13:13] LABS: ERYTHROPOIETIN 11.7 mIU/mL (2.6-18.5)
--- NOTE | 2018-11-08 13:48 | NUR ---
1ST UNIT OF BLOOD IS DONE. GOING TO GIVE THE PATIENT A BREAK FOR AN HOUR BEFORE STARTING SECOND UNIT.
--- NOTE | 2018-11-08 14:55 | NUR ---
2ND UNIT OF BLOOD STARTED INFUSING AT 125 CC/HR.
[2018-11-08 15:18] VITALS: BP 160/73
--- NOTE | 2018-11-08 16:19 | NUR ---
TO NUCLEAR MED FOR BLEEDING SCAN WITH BLOOD INFUSING. FIOR BURROWS RN GOING WITH MC AND PATIENT.
--- NOTE | 2018-11-08 17:03 | NUR ---
NO BM YET FOR THIS SHIFT. WILL PASS THIS INFORMATION TO NEXT SHIFT TO OBTAIN.
--- NOTE | 2018-11-08 17:44 | NUR ---
RETURNS FROM BLEEDING SCAN. NEW ORDERS RECEIVED.
[2018-11-08 20:05] VITALS: BP 187/54
[2018-11-09] VITALS: BP 162/78
--- NOTE | 2018-11-09 03:18 | NUR ---
I have reviewed this patient and I concur with the Shift Assessment completed by the Licensed Practical Nurse today this shift.
[2018-11-09 04:00] VITALS: BP 158/81
[2018-11-09 05:02] LABS: BASOPHILS 0.3 % (0-2); EOSINOPHILS 4.4 % (0-7); IMMATURE GRANULOCYTES 0.3 % (0-5); LYMPHOCYTES 39.6 % (15-50); MCH 27.4 pg (26.0-34.0); MCHC 34.4 g/dL (31.0-37.0); MCV 79.7 fL (80.0-100.0); MEAN PLATELET VOLUME 10.1 fL (7.4-10.4); MONOCYTES 11.9 % (2-11); NEUTROPHILS 43.5 % (40-80); RDW 16.7 % (11.5-14.5); WBC 7.3 10x3/uL (4.8-10.8)
[2018-11-09 05:03] LABS: HEMATOCRIT 29.4 % (36.0-48.0); HEMOGLOBIN 10.1 g/dL (12-16); PLATELET COUNT 127 10x3/uL (130-400); RBC 3.69 10x6/uL (4.00-5.40)
[2018-11-09 05:10] LABS: CALC OSMOLALITY 286 mosm/kg (275-300); CALCIUM 7.7 mg/dL (8.5-10.1); CHLORIDE - SERUM 114 mmol/L (98-107); CREATININE - SERUM 0.8 mg/dL (0.6-1.3); GLUCOSE 85 mg/dL (74-106); SODIUM 145 mmol/L (136-145); UREA NITROGEN 11 mg/dL (7-18); eGFR NON AFRICAN AMERICAN 75 mL/min (90-120)
[2018-11-09 05:19] LABS: CARBON DIOXIDE 20.4 mmol/L (21.0-32.0)
--- NOTE | 2018-11-09 07:15 | NUR ---
AM ROUNDING DONE WITH PATIENT RECEIVING NORCO FOR WRIST (L) PAIN. LEFT UPPER ARM PIV SEN WITH SALINE LOCK. ON ROOM AIR. NO STOOL FROM LAST SHIFT, WILL TRY TO GET ONE TODAY.
[2018-11-09 07:56] VITALS: BP 180/70
--- NOTE | 2018-11-09 07:59 | NUR ---
AM BLOOD PRESSURE MEDS GIVEN EARLY FOR PRESSURE 180/70.
--- NOTE | 2018-11-09 09:17 | NUR ---
STILL WITH COMPLAINTS OF LEFT WRIST HURTING, STATES THAT SHE WOKE UP WITH THE DISCOMFORT. DOES NOT WANT AN ICE PACK. WARM MOIST TOWEL PLACED IN PILLOW CASE OFFERED AND PLACED ON IT. STATES THAT IT IS FEELING BETTER.
--- NOTE | 2018-11-09 11:18 | NUR ---
URSULA MERINO APN PAGED PATIENT IS REQUESTING SOME TYLENOL FOR HER WRIST PAIN. AWAITING CALL BACK.
--- NOTE | 2018-11-09 11:21 | NUR ---
NEW ORDERS FROM URSULA MERINO APN.
[2018-11-09 12:04] VITALS: BMI 18.7
[2018-11-09 12:20] VITALS: BP 148/68
--- NOTE | 2018-11-09 12:45 | NUR ---
RADIOLOGY HERE FOR XRAY OF WRIST.
--- NOTE | 2018-11-09 13:30 | NUR ---
STILL WITH COMPLAINTS TO LEFT WRIST, DOES NOT WARM TOWELS. PLACED LEFT ARM ON PILLOW FOR COMFORT. AWAITING DOCTOR AND XRAY REPORTS.
--- NOTE | 2018-11-09 13:49 | NUR ---
URSULA MERINO APN AND DR RITTER IN TO SEE PATIENT.
[2018-11-09 15:56] VITALS: BP 152/72
--- NOTE | 2018-11-09 16:32 | NUR ---
PATIENT IS WANTING TO GO AMA AT THIS TIME. I ASKED THAT SHE LET ME CALL THE DOCTOR AND GET A DISCHARGE. PAGE INTO URSULA MERINO APN. AWAITING CALL BACK.
--- NOTE | 2018-11-09 16:47 | NUR ---
RECEIVED CALL BACK FROM URSULA MERINO APN. PATIENT STATES THAT SHE WILL STAY.
--- NOTE | 2018-11-09 17:26 | NUR ---
PT SITTING ON SIDE OF BED AT THIS TIME. PT CONTINUES TO C/O OF PAIN TO LEFT WRIST AT THIS TIME. MEDICATION GIVEN SCHEDULED AND WILL GIVE MEDICATION AT NEXT DOSAGE TIME. MEDICATION COMPLIANT. AMBULATES PER SELF. NONSKID SOCKS IN PLACE. CL IN REACH AT THIS TIME.
--- NOTE | 2018-11-09 18:23 | NUR ---
PATIENT STILL HAS NOT HAD A STOOL FOR COLLECTION FOR THIS SHIFT. WILL PASS TO PHARMACOLOGY PROFESSOR.
[2018-11-09 20:00] VITALS: BP 148/83
--- NOTE | 2018-11-09 20:00 | NUR ---
RESUMING PT CARE. PT IS ALERT LAYING IN BED. NO C/O VOICED. NO S/S OF DISTRESS. BED IN LOW POSITION WITH CALL LIGHT IN REACH. WILL CONTINUE TO MONITOR PT AND FOLLOW PLAN OF CARE.
[2018-11-10] VITALS: BP 139/76
[2018-11-10 03:00] VITALS: BP 155/81
--- NOTE | 2018-11-10 03:35 | NUR ---
I have reviewed this patient and I concur with the Shift Assessment completed by the Licensed Practical Nurse today this shift.
--- NOTE | 2018-11-10 04:46 | NUR ---
PT LAYING IN BED RESTING COMFORTABLY WITH EYES CLOSED. NO S/S OF DISTRESS. RESPIRATIONS EVEN AND UNLABORED. BED IN LOW POSITION WITH CALL LIGHT IN REACH. WILL CONTINUE TO MONITOR PT AND FOLLOW PLAN OF CARE.
[2018-11-10 05:27] LABS: ANION GAP 16.8 mmol/L (8-16); CALCIUM 7.2 mg/dL (8.5-10.1); CARBON DIOXIDE 18.1 mmol/L (21.0-32.0); CREATININE - SERUM 0.9 mg/dL (0.6-1.3); POTASSIUM - SERUM 2.9 mmol/L (3.5-5.1)
[2018-11-10 05:28] LABS: BASOPHILS 0.1 % (0-2); EOSINOPHILS 2.9 % (0-7); HEMATOCRIT 29.3 % (36.0-48.0); HEMOGLOBIN 10.2 g/dL (12-16); IMMATURE GRANULOCYTES 0.3 % (0-5); LYMPHOCYTES 28.9 % (15-50); MCH 27.6 pg (26.0-34.0); MCHC 34.8 g/dL (31.0-37.0); MCV 79.4 fL (80.0-100.0); MEAN PLATELET VOLUME 9.7 fL (7.4-10.4); NEUTROPHILS 53.8 % (40-80); PLATELET COUNT 116 10x3/uL (130-400); RBC 3.69 10x6/uL (4.00-5.40); RDW 16.9 % (11.5-14.5); WBC 8.9 10x3/uL (4.8-10.8)
--- NOTE | 2018-11-10 07:00 | NUR ---
RECEIVED REPORT. ASSUMED CARE OF PATIENT AFTER RECEIVING BEDSIDE SHIFT REPORT. RESTING IN BED WITH EYES OPEN. VERBAL DENIES NEEDS AT THIS TIME. NO DISTRESS. CALL LIGHT WITHIN REACH.
--- NOTE | 2018-11-10 07:18 | NUR ---
NEW ORDERS RECEIVED FROM URSULA TO INITIATE ELECTROLYTE PROTOCOL WHEN K+ REPORTED THIS AM. ORDERS INPUTTED.
[2018-11-10 08:44] VITALS: BP 157/82
--- NOTE | 2018-11-10 09:01 | NUR ---
MEDICATED FOR PAIN. LEFT WRIST NOTED TO BE HOT TO TOUCH AND SWOLLEN. PATIENT WITH LIMITED ROM TO JOINT. CALL LIGHT WITHIN REACH. K+ SUPPLEMENT INITIATED PER EP. NO DISTRESS. PATIENT STATES THE PREVIOUS SHIFT TRIED HEAT APPLICATION SHE DOESN'T THINK IT HELPED BUT SHE HAS DENIED TO TRY ICE PACK TO AREA.
[2018-11-10 13:31] VITALS: BP 164/79
--- NOTE | 2018-11-10 14:25 | NUR ---
REMOVED PT IV CATH. CATH INTACT. PT TOLERATED WELL. PT STATES NO PAIN DURING REMOVAL.
--- NOTE | 2018-11-10 15:07 | NUR ---
SPOKE WITH DR. GONSALEZ RE PT HOME MEDICATIONS: NORVASC, PROTONIX, COLCHICINE, ULORIC AND ATORVASTATIN. PER DR GONSALEZ TO CONTINUE. D/C CLONIDINE PATCH.
[2018-11-10] MEDS ORDERED: ULORIC80 MG PO (15:10)
[2018-11-10] MEDS ORDERED: COLCRYS0.6 MG PO (15:10)
[2018-11-10] MEDS ORDERED: NORVASC10 MG PO (15:10)
[2018-11-10] MEDS ORDERED: PROTONIX40 MG PO (15:11)
[2018-11-10] MEDS ORDERED: LIPITOR20 MG PO (15:11)
--- NOTE | 2018-11-10 15:24 | NUR ---
ONE MONTH SUPPLY OF ABOVE MEDICATIONS CALLED DIRECTED BY DR GONSALEZ. SPOKE WITH PHARMACIST, KHURRAM, AT [facility] ON [address].
--- NOTE | 2018-11-10 15:45 | NUR ---
1520 22 GAUGE REMOVED FROM LEFT UPPER ARM. CATHETER TIP INTACT. NO BLEEDING FROM SITE. 2X2 GAUZE APPLIED AND SECURED WITH TAPE. 1540 DISCHARGE INSTRUCTIONS PROVIDED TO PATIENT. PATIENT VERBALIZED UNDERSTANDING OF ALL INSTRUCTIONS PROVIDED AND TO MAKE HER FOLLOW UP MD APPOINTMENT. 1545 PATIENT LEFT UNIT WITH ALL PERSONAL BELONGINGS WITH HER FAMILY. PATIENT REFUSED WHEELCHAIR. PATIENT IN NO DISTRESS UPON LEAVING UNIT. PATIENT DISCHARGED TO HOME.
--- NOTE | 2018-11-12 08:49 | MORECARE ---
CASE MANAGEMENT DISCHARGE SUMMARY PATIENT: MARIAM THAYER UNIT: [id number] ADM DATE: 11/03/18 AGE: 68 : 50 SEX: F ROOM/BED: D.2110 AUTHOR: CHERYL,DOC PHYSICIAN: REFERRING PHYSICIAN: SPRING BOYD MD DATE OF SERVICE: 11/12/18 Discharge Plan Patient Name: MARIAM THAYER Facility: [facility]:[place] : 1950 Planned Disposition: Home Anticipated Discharge Date: 11/10/18 Discharge Date: 11/10/2018 Expected LOS: 7 Initial Reviewer: [email or web address] Initial Review Date: 11/06/2018 Generated: 11/12/18 9:49 am DCP- Discharge Planning Updated by [email or web address]: Abelardo Morse on 11/06/18 1:[address] Patient Name: MARIAM THAYER Admission Status: Urgent Accout number: [id number] Admission Date: 11-03-2018 : 1950 Admission Diagnosis: Attending: DEB, Current LOS: 3 Anticipated DC Date: 11-07-2018 Planned Disposition: Home Primary Insurance: [employer] ADV Discharge Planning Comments: CM MET WITH PT IN ROOM TO DISCUSS DISCHARGE PLANNING AND NEEDS. PT REPORTS LIVING AT HOME INDEPENDENTLY AND ALONE. PT HAS WALKER SHE DOES NOT USE AND NO MEDICAL EQUIPMENT PROVIDER PREFERENCE. PT HAS NO OUTSIDE SERVICES ASSISTING IN THE HOME. CM DISCUSSED AVAILABILITY OF HOME HEALTH, REHAB SERVICES AND MEDICAL EQUIPMENT. PT DENIES DISCHARGE NEEDS AND REPORTS FEELING READY TO LEAVE NOW. PT REPORTS HER SON WILL PICK HER UP FOR DISCHARGE HOME. IMPORTANT MESSAGE FROM MEDICARE PROVIDED AND EXPLAINED. PT REPORTS PLAN TO RETURN HOME ALONE AT DISCHARGE. FAMILY TO TRANSPORT. PT DENIES DISCHARGE NEEDS. CM TO FOLLOW AND ASSIST NEEDED. Needle Leader: Abelardo Morse DCPIA - Discharge Planning Initial Assessment Updated by [email or web address]: Abelardo Morse on 11/06/18 2:14 pm * Is the patient Alert and Oriented? Yes * How many steps to enter\exit or inside your home? 12 * PCP DR. BOYD * Pharmacy [facility] [address] * Preadmission Environment Home Alone * ADLs Independent * Equipment Walker * Other Equipment NOT USING WALKER CURRENTLY NO MEDICAL EQUIPMENT PROVIDER PREFERENCE * List name and contact numbers for known caregivers / representatives who currently or will assist patient after discharge: SARA THAYER, SON, * Verbal permission to speak to the caregivers and representatives has been obtained from the patient. N/A * Community resources currently utilized None * Please name any agencies selected above. NONE * Additional services required to return to the preadmission environment? No * Can the patient safely return to the preadmission environment? Yes * Has this patient been hospitalized within the prior 30 days at any hospital? Yes Coverage Notice Reviewer: [email or web address] Sana Morse Notice Issued Date-Time: 11/06/2018 9:30 Notice Type: IM Discharge Notice Notice Delivered To: Patient Relationship to Patient: Sound Truck Operator Name: Delivery Method: HAND - Hand Delivered Dara Days: Prior Verbal Notification: Recipient Understood Notice: Yes Recipient Signature: Yes Med Rec Note Co-signed by Attending: Coverage Notice Comment: Reviewer: [email or web address] Sana Nichols Notice Issued Date-Time: 11/10/2018 14:50 Notice Type: IM Discharge Notice Notice Delivered To: Patient Relationship to Patient: Self Sound Truck Operator Name: Delivery Method: HAND - Hand Delivered Dara Days: Prior Verbal Notification: Recipient Understood Notice: Yes Recipient Signature: Yes Med Rec Note Co-signed by Attending: Coverage Notice Comment: Last DP export: 11/06/18 1:26 p Patient Name: MARIAM THAYER Page 19423 at 0849 All edits/amendments must be made on the electronic document DICTATION DATE: 11/12/18 0849 RFID STRATEGIST: KWAME 11/12/18 0849 RPT#: [id number] DC DATE:11/10/18 STATUS: DIS IN [facility] [address] [place] [address] END OF REPORT
== END 2018-11-10 15:45 | disposition home or self-care (01) | DRG 811 ==
LOC: D.M2 15:21 → OBSVTIME 15:22 → D.M2 11-03 15:48
PROVIDERS: Family Medicine Adult Medicine; Internal Medicine Gastroenterology; Internal Medicine Hematology & Oncology; Internal Medicine Nephrology; ADMIT Family Medicine; ATTEND Family Medicine
PROC: 0DB68ZX Excision of Stomach, Via Natural or Artificial Opening Endoscopic, Diagnostic (ICD-10-PCS; principal; 2018-11-07 17:29)
DX: D50.9 Iron deficiency anemia, unspecified (principal); N17.0 Acute kidney failure with tubular necrosis; F17.213 Nicotine dependence, cigarettes, with withdrawal; E86.0 Dehydration; R13.10 Dysphagia, unspecified; K21.9 Gastro-esophageal reflux disease without esophagitis; E78.5 Hyperlipidemia, unspecified; I25.10 Atherosclerotic heart disease of native coronary artery without angina pectoris; K25.9 Gastric ulcer, unspecified as acute or chronic, without hemorrhage or perforation; K44.9 Diaphragmatic hernia without obstruction or gangrene; K29.80 Duodenitis without bleeding; Z86.73 Personal history of transient ischemic attack (TIA), and cerebral infarction without residual deficits

== ENCOUNTER 2019-01-14 09:47 | Inpatient (IN) | payer MEDICARE, MEDICAID ==
[~2019-01-14] VITALS: Ht 162.6 cm; Wt 42.6 kg
[~2019-01-14 09:47] MED LIST changes: +COLCRYS0.6 MG PO; +NORVASC10 MG PO; +PROTONIX40 MG PO; +ULORIC80 MG PO
[2019-01-14 10:31] LABS: BASOPHILS 0.1 % (0-2); EOSINOPHILS 0.3 % (0-7); HEMOGLOBIN 8.1 g/dL (12-16); IMMATURE GRANULOCYTES 0.3 % (0-5); LYMPHOCYTES 18.6 % (15-50); MCH 29.8 pg (26.0-34.0); MCHC 33.8 g/dL (31.0-37.0); MCV 88.2 fL (80.0-100.0); MEAN PLATELET VOLUME 9.7 fL (7.4-10.4); MONOCYTES 11.8 % (2-11); NEUTROPHILS 68.9 % (40-80); RBC 2.72 10x6/uL (4.00-5.40); RDW 17.1 % (11.5-14.5); WBC 11.8 10x3/uL (4.8-10.8)
[2019-01-14 10:43] LABS: PLATELET COUNT 207 10x3/uL (130-400)
[2019-01-14 10:48] LABS: INR 1.26 (0.85-1.17); PROTIME 15.3 SECONDS (11.6-15.0)
[2019-01-14 10:50] LABS: D-DIMER-QUANTITATIVE 3.19 ug/mLFEU (0.20-0.54)
[2019-01-14 10:56] LABS: ALBUMIN 3.2 g/dL (3.4-5.0); ALKALINE PHOSPHATASE 74 U/L (46-116); ALT (SGPT) 14 U/L (10-68); BILIRUBIN - TOTAL 0.45 mg/dL (0.2-1.3); CALC OSMOLALITY 283 mosm/kg (275-300); CARBON DIOXIDE 24.3 mmol/L (21.0-32.0); CHLORIDE - SERUM 101 mmol/L (98-107); CKMB 0.5 U/L (0.0-3.6); CREATINE KINASE 138 UL (21-215); CREATININE - SERUM 1.4 mg/dL (0.6-1.3); GLUCOSE 90 mg/dL (74-106); PROTEIN - SERUM 8.3 g/dL (6.4-8.2); SODIUM 140 mmol/L (136-145); TROPONIN-I < 0.017 ng/mL (0.000-0.060); UREA NITROGEN 26 mg/dL (7-18); eGFR NON AFRICAN AMERICAN 40 mL/min (90-120)
[2019-01-14 11:05] LABS: CALCIUM 6.2 mg/dL (8.5-10.1); POTASSIUM - SERUM 2.6 mmol/L (3.5-5.1)
[2019-01-14 11:06] LABS: C-REACTIVE PROTEIN 34.2 mg/dL (0.0-0.9)
[2019-01-14 11:24] LABS: URIC ACID 9.8 mg/dL (2.6-7.2)
[2019-01-14 12:00] VITALS: BP 132/50
--- NOTE | 2019-01-14 13:40 | NUR ---
ARRIVE TO ROOM VIA STRETCHER FROM ER. POTASSIUM RIDER INFUSING THROUGH 20G RT AC WITH LR. CALCIUM GLUCONATE INFUSING THROUGH LT HAND 22G IV. INFUSIONS COMPLETE UPON ARRIVAL. SWITCH LR TO LT HAND IV INFUSING AT 125ml/HR ORDERED. AMBULATE TO BED. GAIT STEADY. BLOOD CONSENT SIGNED. INITIATE UNIT 1 OF PRBC TRANSFUSION ORDERED THROUGH RT AC 20G. REQUEST TO REMAIN SITTING ON SIDE OF BED. ALERT AND ORIENTED X4. BP-128/63, HR-78, O2 SAT 99% RA, T-98.2 ORALLY. INITIATE TRANSFUSION RATE AT 75ml/HR. REMAIN IN ROOM FOR FIRST 15MINS TO MONITOR FOR REACTION. REFUSE SCDs. CONTINUE ADMISSION PROCESS AND PLAN OF CARE. BED LOCKED AND LOW. CALL LIGHT IN REACH. TWO SIDERAILS UP. NONSKID SOCKS PROVIDED.
--- NOTE | 2019-01-14 13:55 | NUR ---
ALERT AND ORIENTED X4. REMAINS SITTING UP ON SIDE OF BED. BP-138/60, HR-86, T-98, R-20. NO SIGNS OF REACTION. INCREASE TRANSFUSION RATE TO 125ml/HR. CONTINUE PLAN OF CARE AND SAFETY PRECAUTIONS.
[2019-01-14 14:24] VITALS: BP 128/63; BMI 16.1
[2019-01-14 16:30] VITALS: BP 145/76
[2019-01-14 16:56] VITALS: BP 145/76
--- NOTE | 2019-01-14 16:58 | NUR ---
TRANSFUSION COMPLETE. VITALS STABLE AND PLACED ON CHART. ALERT AND ORIENTED X4. REQUEST FOR DINNER ORDERED PER PATIENT REQUEST. DENIES ANY OTHER NEEDS. CONTINUE PLAN OF CARE AND SAFETY PRECAUTIONS.
--- NOTE | 2019-01-14 19:39 | NUR ---
URMILA NICOLE, ON-CALL FOR DR. FERNANDEZ, IN REGARDS TO PATIENT C/O 04/18 HEADACHE
--- NOTE | 2019-01-14 19:51 | NUR ---
SPOKE WITH BONNIE IN REGARDS TO PATIENT REQUEST FOR TYLENOL. ORDER ENTERED FOR TYLENOL
[2019-01-14 20:00] VITALS: BP 126/58
[2019-01-15 04:00] VITALS: BP 117/47
[2019-01-15] MEDS ORDERED: PROTONIX40 MG PO (04:58)
[2019-01-15] MEDS ORDERED: NORVASC10 MG PO (04:58)
[2019-01-15 07:07] LABS: BASOPHILS 0.1 % (0-2); EOSINOPHILS 0.7 % (0-7); IMMATURE GRANULOCYTES 0.4 % (0-5); LYMPHOCYTES 23.9 % (15-50); MCH 30.1 pg (26.0-34.0); MCHC 34.5 g/dL (31.0-37.0); MCV 87.2 fL (80.0-100.0); MEAN PLATELET VOLUME 9.7 fL (7.4-10.4); MONOCYTES 10.1 % (2-11); NEUTROPHILS 64.8 % (40-80); PLATELET COUNT 208 10x3/uL (130-400); RDW 17.3 % (11.5-14.5); WBC 9.1 10x3/uL (4.8-10.8)
[2019-01-15 07:16] LABS: HEMATOCRIT 29.3 % (36.0-48.0); HEMOGLOBIN 10.1 g/dL (12-16); RBC 3.36 10x6/uL (4.00-5.40)
--- NOTE | 2019-01-15 07:30 | NUR ---
ALERT AND ORIENTED X4. SITTING UP ON SIDE OF BED. PATIENT STATES, "I'M NOT HAPPY. I JUST NEED TO GO HOME. THIS PLACE ISN'T DOING ANYTHING FOR ME." EXPLAIN ELECTROLYTES ARE LOW AND HAVE BEEN GETTING REPLACED. PATIENT STATES, "I DON'T CARE, NOTHING IS BEING DONE ABOUT MY FOOT." NOTIFY RESULTS FROM XRAY AND DOPLER RESULTS NO DVT OR FRACTURE. NOTIFY URSULA OF Mg-0.6 AND CALCIUM 6.4. INITIATE ELECTROLYTE REPLACEMENT PER PROTOCOL. CONTINUE PLAN OF CARE AND SAFETY PRECAUTIONS.
[2019-01-15 07:32] LABS: ALBUMIN 2.9 g/dL (3.4-5.0); BILIRUBIN - TOTAL 0.29 mg/dL (0.2-1.3); CARBON DIOXIDE 26.1 mmol/L (21.0-32.0); CREATININE - SERUM 1.1 mg/dL (0.6-1.3); PROTEIN - SERUM 7.3 g/dL (6.4-8.2)
[2019-01-15 07:39] LABS: POTASSIUM - SERUM 3.1 mmol/L (3.5-5.1)
[2019-01-15 07:40] LABS: CALCIUM 6.4 mg/dL (8.5-10.1); MAGNESIUM - SERUM 0.6 mg/dL (1.8-2.4)
[2019-01-15 08:30] VITALS: BP 137/56
[2019-01-15 09:09] VITALS: BMI 16.1
[2019-01-15 16:44] VITALS: BP 127/59
[2019-01-15 17:33] LABS: MAGNESIUM - SERUM 2.3 mg/dL (1.8-2.4); POTASSIUM - SERUM 3.6 mmol/L (3.5-5.1)
[2019-01-15 17:35] LABS: CALCIUM 6.7 mg/dL (8.5-10.1)
[2019-01-15 18:32] VITALS: Ht 162.6 cm; Wt 42.6 kg
--- NOTE | 2019-01-15 19:20 | MORECARE ---
CASE MANAGEMENT DISCHARGE SUMMARY PATIENT: MARIAM THAYER UNIT: [id number] ADM DATE: 01/14/19 AGE: 68 : 50 SEX: F ROOM/BED: D.1210 AUTHOR: JHONNY LUNA PHYSICIAN: REFERRING PHYSICIAN: MANJULA FERNANDEZ MD DATE OF SERVICE: 01/15/19 Discharge Plan Patient Name: MARIAM THAYER [facility] [facility] 1950 Planned Disposition: Home Anticipated Discharge Date: Discharge Date: Expected LOS: Initial Reviewer: [email or web address] Initial Review Date: 01/15/2019 Generated: 01/15/19 8:20 pm DCPIA - Discharge Planning Initial Assessment Updated by [email or web address]: Dori Garcia on 01/15/19 7:17 pm * Is the patient Alert and Oriented? Yes * How many steps to enter\exit or inside your home? * PCP DR BOYD * Pharmacy [facility] [address] * Preadmission Environment Home with Family * ADLs Independent * Equipment Bedside Commode Cane Shower Chair * Other Equipment NONE * List name and contact numbers for known caregivers / representatives who currently or will assist patient after discharge: SARA THAYER- [phone] * Verbal permission to speak to the caregivers and representatives has been obtained from the patient. No * Community resources currently utilized None * Please name any agencies selected above. N/A * Additional services required to return to the preadmission environment? No * Can the patient safely return to the preadmission environment? Yes * Has this patient been hospitalized within the prior 30 days at any hospital? No Patient Name: MARIAM THAYER Page [phone] at 1920 All edits/amendments must be made on the electronic document DICTATION DATE: 01/15/191918 LEGAL RECORDS MANAGER: KWAME 01/15/191918 RPT#: [id number] DC DATE: STATUS: ADM IN [facility] [address] [place] [address] END OF REPORT
--- NOTE | 2019-01-15 19:33 | MORECARE ---
CASE MANAGEMENT DISCHARGE SUMMARY PATIENT: MARIAM THAYER UNIT: [id number] ADM DATE: 01/14/19 AGE: 68 : 50 SEX: F ROOM/BED: D.1210 AUTHOR: CHERYL,DOC PHYSICIAN: REFERRING PHYSICIAN: MANJULA FERNANDEZ MD DATE OF SERVICE: 01/15/19 Discharge Plan Patient Name: MARIAM THAYER Facility: [facility]:[place] : 1950 Planned Disposition: Home Anticipated Discharge Date: Discharge Date: Expected LOS: Initial Reviewer: [email or web address] Initial Review Date: 01/15/2019 Generated: 01/15/19 8:32 pm Comments DCP- Discharge Planning Updated by [email or web address]: Dori Garcia on 01/15/19 6:[address] CM ET WITH THE PATIENT AT THE BEDSIDE. CM EXPLAINED MY ROLEAND ASK PERMISSION TO PROCEED WITH ASSESSMENT. SHE CONSENTED. SHE PLANS TO RETURN TO HER HOME. DENIES NEED FOR ANY SERVICES. IF SHE NEEDS ASSISTANCE SHE STATES SHE HAS 2 SISTERS AND A SON. SHE WILL HAVE TRANSPORTATION TO HOME AT DISCHARGE. THERE ARE 12- 13 STEPS W/ A HANDRAIL TO ENTER HER APARTMENT. PATIENT IS NOT UTILIZING ANY HOME HEALTH OR COMMUNITY SERVICES. DENIES ANY NEED. SHE HAS HAD A HIP REPLACEMENT SO SHE HAS A CANE, SHOWER CHAIR AND BEDSIDE COMMODE. CM ADVISED IF SHE NEEDS ANY ASSISTANCE AT D/C CASE MANAGEMENT IS AVAILABLE. DCPIA - Discharge Planning Initial Assessment Updated by [id number]: Dori Garcia on 01/15/19 7:17 pm * Is the patient Alert and Oriented? Yes * How many steps to enter\exit or inside your home? * PCP DR BOYD * Pharmacy [facility] [address] * Preadmission Environment Home with Family * ADLs Independent * Equipment Bedside Commode Cane Shower Chair * Other Equipment NONE * List name and contact numbers for known caregivers / representatives who currently or will assist patient after discharge: SARA THAYER- [phone] * Verbal permission to speak to the caregivers and representatives has been obtained from the patient. No * Community resources currently utilized None * Please name any agencies selected above. N/A * Additional services required to return to the preadmission environment? No * Can the patient safely return to the preadmission environment? Yes * Has this patient been hospitalized within the prior 30 days at any hospital? No Last DP export: 01/15/19 6:20 pm Patient Name: MARIAM THAYER Page 58057 at 1933 All edits/amendments must be made on the electronic document DICTATION DATE: 01/15/191931 CORNER BEAD OPERATOR: KWAME 01/15/191931 RPT#: [id number] DC DATE: STATUS: ADM IN [facility] [address] [place] [address] END OF REPORT
--- NOTE | 2019-01-15 19:45 | NUR ---
SITTING UP IN BED. LEGS ON PILLOWS. C/O PAIN IN LLE 7 ON PAIN SCALE. 1+ EDEMA NOTED TO LLE. STATES, "I HAVE GOUT." RESP EVEN AND NONLABORED. ALERT AND ORIENTED X4. TELEMETRY SHOWS SR WITH RATE OF 71. SALINE LOCK NOTED TO RT AC AND LT HAND. SR ELEVATED X2. CL IN REACH.
--- NOTE | 2019-01-15 20:00 | NUR ---
MEDICATED WITH NORCO ORDERED FOR C/O PAIN IN LLE. CL IN REACH.
[2019-01-15 20:25] VITALS: BP 130/56
--- NOTE | 2019-01-15 20:49 | NUR ---
BEDTIME SNACK GIVEN WITH PM MEDS. STATES PAIN IS NOW 5 OR 6. CL IN REACH.
[2019-01-16 00:05] VITALS: BP 133/78
[2019-01-16 04:30] VITALS: BP 124/56
--- NOTE | 2019-01-16 04:43 | NUR ---
MEDICATED WITH NORCO FOR C/O HEAD AND NECK PAIN RATING 10. CL IN REACH.
[2019-01-16 07:20] LABS: BASOPHILS 0.2 % (0-2); EOSINOPHILS 0.9 % (0-7); HEMATOCRIT 28.2 % (36.0-48.0); HEMOGLOBIN 9.6 g/dL (12-16); IMMATURE GRANULOCYTES 0.6 % (0-5); LYMPHOCYTES 26.7 % (15-50); MCH 29.8 pg (26.0-34.0); MCV 87.6 fL (80.0-100.0); MEAN PLATELET VOLUME 9.7 fL (7.4-10.4); MONOCYTES 8.6 % (2-11); PLATELET COUNT 219 10x3/uL (130-400); RBC 3.22 10x6/uL (4.00-5.40); RDW 17.5 % (11.5-14.5); WBC 8.4 10x3/uL (4.8-10.8)
[2019-01-16 07:38] LABS: ALBUMIN 2.6 g/dL (3.4-5.0); ANION GAP 15.6 mmol/L (8-16); BILIRUBIN - TOTAL 0.3 mg/dL (0.2-1.3); CARBON DIOXIDE 25.7 mmol/L (21.0-32.0); CREATININE - SERUM 0.9 mg/dL (0.6-1.3); POTASSIUM - SERUM 3.3 mmol/L (3.5-5.1); PROTEIN - SERUM 7.3 g/dL (6.4-8.2)
[2019-01-16 07:54] LABS: MAGNESIUM - SERUM 1.6 mg/dL (1.8-2.4)
[2019-01-16 07:55] LABS: CALCIUM 6.7 mg/dL (8.5-10.1)
--- NOTE | 2019-01-16 07:59 | NUR ---
NOTIFIED BY CHAVA IN LAB OF CALCIUM OF 6.7. CORRECTED CALICUM LEVEL IS 7.8.
[2019-01-16 08:00] VITALS: BP 123/54
--- NOTE | 2019-01-16 08:41 | NUR ---
AM MEDS GIVEN TO PT ALSO GAVE 40MEQ OF K FOR LOW K OF 3.3. PT C/O ABOUT HAVING TO TAKE K PILLS BECAUSE THEY ARE SO BIG. CUT PILL IN HALF AND INFORMED PT THAT WE ALSO HAVE POWDER K IF SHE WANTS TO TAKE THAT INSTEAD. PT STATED THAT NEXT TIME. SHE WOULD TAKE IT. PT ALSO MAD BECAUSE SHE DID NOT LIKE HER BREAKFAST THAT SHE WAS SERVED THIS AM. PT WANT ORANGE AND 2 SLICES OF LOGAN, PUT ORDER IN FOR DIETARY TO BRING. PT ALSO C/O HOW SHE IS TIRED OF BEING HERE THAT SHE WANTS TO GO HOME. STATES THAT NOTHING IS BEING DONE FOR HER THAT SHE HAS NOT SEEN A DOCTOR SINCE SHE IS BEEN HERE. WENT OVER HER PLAN OF CARE WITH PT AND INFORMED THAT A DOCTOR WOULD BE BY TO SEE HER TODAY. PT'S CLOTHING AND LINEN HAD BLOOD FROM BLOOD DRAW FROM THIS AM. COMPLETE LINEN CHANGE DONE AT THIS TIME. ALSO PROVIDED PT WITH PAPER SCRUBS.
[2019-01-16 11:50] VITALS: BP 142/56
--- NOTE | 2019-01-16 11:54 | NUR ---
PT UP TO CHAIR, COMPLETE LINEN CHANGE PROVIDED AT THIS TIME. PT DENIES ANY NEEDS AT THIS TIME. CALL LIGHT IN REACH, NAD NOTED, WILL CONTINUE TO MONITOR.
[2019-01-16 17:05] VITALS: BP 135/59
--- NOTE | 2019-01-16 19:11 | NUR ---
PT IN BED. DENIES NEEDS AT THIS TIME.
[2019-01-16 20:15] VITALS: BP 147/70
[2019-01-17] VITALS: BP 118/74
[2019-01-17 04:00] VITALS: BP 151/60
[2019-01-17 07:21] LABS: BASOPHILS 0.1 % (0-2); EOSINOPHILS 1.3 % (0-7); HEMATOCRIT 30.9 % (36.0-48.0); HEMOGLOBIN 10.2 g/dL (12-16); IMMATURE GRANULOCYTES 0.6 % (0-5); MCH 30.1 pg (26.0-34.0); MEAN PLATELET VOLUME 9.7 fL (7.4-10.4); MONOCYTES 7.7 % (2-11); NEUTROPHILS 63.3 % (40-80); PLATELET COUNT 210 10x3/uL (130-400); RBC 3.39 10x6/uL (4.00-5.40); RDW 18.1 % (11.5-14.5); WBC 7.8 10x3/uL (4.8-10.8)
[2019-01-17 07:30] LABS: ALBUMIN 2.8 g/dL (3.4-5.0); BILIRUBIN - TOTAL 0.29 mg/dL (0.2-1.3); CALCIUM 7.4 mg/dL (8.5-10.1); CARBON DIOXIDE 26.1 mmol/L (21.0-32.0); CREATININE - SERUM 0.9 mg/dL (0.6-1.3); MAGNESIUM - SERUM 1.3 mg/dL (1.8-2.4); PROTEIN - SERUM 6.8 g/dL (6.4-8.2)
[2019-01-17 07:31] LABS: ANION GAP 13.9 mmol/L (8-16)
[2019-01-17 07:40] LABS: MCV 91.2 fL (80.0-100.0)
[2019-01-17 07:49] VITALS: BP 156/67
--- NOTE | 2019-01-17 07:57 | NUR ---
AM ROUNDING DONE AT THIS TIME WITH PATIENT SITTING ON SIDE OF BED. DENIES NEEDS. ON ROOM AIR. ON HEART MONITOR SHOWING SR, HR 76. RIGHT AC PIV AND LEFT HAND PIV SEEN WITH SALINE LOCK.ON EP, K+ IS 5.0 AND MAG IS 1.3, WILL COVER MAG WITH ORAL SUPPLEMENTS. LEFT AC AREA SEEN AND FELT WITH KNOT.
--- NOTE | 2019-01-17 08:18 | NUR ---
PER PROTOCOL MAG OX TAB GIVEN NOW AND WILL GIVE ANOTHER IN 4 HOURS.
[2019-01-17 11:30] VITALS: BP 137/66
--- NOTE | 2019-01-17 12:06 | NUR ---
OT NOTE: PT PERFORMED VERY WELL TODAY. UE/LE DRESSING INDEP; IN ROOM AMBULATION WITHOUT ASSISTIVE DEVICE INDEP WITH NO LOB. TOILETING AND SINK HYGIENE WITHOUT ASSIST. ALL BED MOB INDEP. DC OT AT THIS TIME. KRISHNA LUNA, OTR/L
--- NOTE | 2019-01-17 13:10 | NUR ---
Nutrition Follow Up: Pt stated that her appetite is poor and she does not care for the food. RD offered pt something else and pt requested a sandwich and soup. Pt agreed to Ensure with meals. Diet: AHA PO Intake: 26% meal avg BM: 01/16/19 Labs reviewed Meds noted including Zofran Will liberalize diet to encourage po intake. Will order Ensure with meals and will honor food preferences. Pt may benefit from an appetite stimulant. RD following.
--- NOTE | 2019-01-17 14:19 | NUR ---
VISITING WITH FRIENDS, DENIES NEEDS. DR RITTER WAS IN TO SEE PATIENT.
--- NOTE | 2019-01-17 15:02 | MORECARE ---
CASE MANAGEMENT DISCHARGE SUMMARY PATIENT: MARIAM THAYER UNIT: [id number] ADM DATE: 01/14/19 AGE: 68 : 50 SEX: F ROOM/BED: D.1210 AUTHOR: CHERYL,DOC PHYSICIAN: REFERRING PHYSICIAN: MANJULA FERNANDEZ MD DATE OF SERVICE: 01/17/19 Discharge Plan Patient Name: MARIAM THAYER Facility: [facility]:[place] : 1950 Planned Disposition: Home Anticipated Discharge Date: Discharge Date: Expected LOS: Initial Reviewer: [email or web address] Initial Review Date: 01/15/2019 Generated: 01/17/19 4:02 pm Comments DCP- Discharge Planning Updated by [email or web address]: Dori Garcia on 01/15/19 6:[address] CM ET WITH THE PATIENT AT THE BEDSIDE. CM EXPLAINED MY ROLEAND ASK PERMISSION TO PROCEED WITH ASSESSMENT. SHE CONSENTED. SHE PLANS TO RETURN TO HER HOME. DENIES NEED FOR ANY SERVICES. IF SHE NEEDS ASSISTANCE SHE STATES SHE HAS 2 SISTERS AND A SON. SHE WILL HAVE TRANSPORTATION TO HOME AT DISCHARGE. THERE ARE 12- 13 STEPS W/ A HANDRAIL TO ENTER HER APARTMENT. PATIENT IS NOT UTILIZING ANY HOME HEALTH OR COMMUNITY SERVICES. DENIES ANY NEED. SHE HAS HAD A HIP REPLACEMENT SO SHE HAS A CANE, SHOWER CHAIR AND BEDSIDE COMMODE. CM ADVISED IF SHE NEEDS ANY ASSISTANCE AT D/C CASE MANAGEMENT IS AVAILABLE. DCPIA - Discharge Planning Initial Assessment Updated by [id number]: Dori Garcia on 01/15/19 7:17 pm * Is the patient Alert and Oriented? Yes * How many steps to enter\exit or inside your home? * PCP DR BOYD * Pharmacy [facility] [address] * Preadmission Environment Home with Family * ADLs Independent * Equipment Bedside Commode Cane Shower Chair * Other Equipment NONE * List name and contact numbers for known caregivers / representatives who currently or will assist patient after discharge: SARA THAYER- [phone] * Verbal permission to speak to the caregivers and representatives has been obtained from the patient. No * Community resources currently utilized None * Please name any agencies selected above. N/A * Additional services required to return to the preadmission environment? No * Can the patient safely return to the preadmission environment? Yes * Has this patient been hospitalized within the prior 30 days at any hospital? No Last DP export: 01/15/19 6:32 pm Patient Name: MARIAM THAYER Page [phone] at 1502 All edits/amendments must be made on the electronic document DICTATION DATE: 01/17/191500 EMERGENCY DEPARTMENT TECHNICIAN: KWAME 01/17/191500 RPT#: [id number] DC DATE: STATUS: ADM IN [facility] [address] [place] [address] END OF REPORT
[2019-01-17 15:32] VITALS: BP 146/58
--- NOTE | 2019-01-17 17:17 | NUR ---
BILATERAL SALINE LOCKS REMOVED WITH CATH TIPS INTACT. HEART MONITOR TAKEN OFF AND TURNED IN. AWAITING RIDE FOR DISCHARGE INSTRUCTIONS TO BE DONE AND THEN PATIENT DISCHARGED.
--- NOTE | 2019-01-17 18:13 | NUR ---
STILL AWAITING ON FAMILY MEMBER FOR RIDE.
--- NOTE | 2019-01-17 18:37 | NUR ---
VERBAL AND WRITTEN DISCHARGE INSTRUCTIONS GIVEN TO PATIENT. DISCHARGED HOME VIA WHEELCHAIR.
--- NOTE | 2019-01-21 08:35 | MORECARE ---
CASE MANAGEMENT DISCHARGE SUMMARY PATIENT: MARIAM THAYER UNIT: [id number] ADM DATE: 01/14/19 AGE: 68 : 50 SEX: F ROOM/BED: D.1210 AUTHOR: CHERYLDOC PHYSICIAN: REFERRING PHYSICIAN: MANJULA FERNANDEZ MD DATE OF SERVICE: 01/21/19 Discharge Plan Patient Name: MARIAM THAYER Facility: [facility]:[place] : 1950 Planned Disposition: Home Anticipated Discharge Date: Discharge Date: 01/17/2019 Expected LOS: Initial Reviewer: [email or web address] Initial Review Date: 01/15/2019 Generated: 01/21/19 9:35 am Comments DCP- Discharge Planning Updated by [email or web address]: Dori Garcia on 01/15/19 6:[address] CM ET WITH THE PATIENT AT THE BEDSIDE. CM EXPLAINED MY ROLEAND ASK PERMISSION TO PROCEED WITH ASSESSMENT. SHE CONSENTED. SHE PLANS TO RETURN TO HER HOME. DENIES NEED FOR ANY SERVICES. IF SHE NEEDS ASSISTANCE SHE STATES SHE HAS 2 SISTERS AND A SON. SHE WILL HAVE TRANSPORTATION TO HOME AT DISCHARGE. THERE ARE 12- 13 STEPS W/ A HANDRAIL TO ENTER HER APARTMENT. PATIENT IS NOT UTILIZING ANY HOME HEALTH OR COMMUNITY SERVICES. DENIES ANY NEED. SHE HAS HAD A HIP REPLACEMENT SO SHE HAS A CANE, SHOWER CHAIR AND BEDSIDE COMMODE. CM ADVISED IF SHE NEEDS ANY ASSISTANCE AT D/C CASE MANAGEMENT IS AVAILABLE. DCPIA - Discharge Planning Initial Assessment Updated by [email or web address]: Dori Garcia on 01/15/19 7:17 pm * Is the patient Alert and Oriented? Yes * How many steps to enter\exit or inside your home? * PCP DR BOYD * [facility] [address] * Preadmission Environment Home with Family * ADLs Independent * Equipment Bedside Commode Cane Shower Chair * Other Equipment NONE * List name and contact numbers for known caregivers / representatives who currently or will assist patient after discharge: SARA THAYER- [phone] * Verbal permission to speak to the caregivers and representatives has been obtained from the patient. No * Community resources currently utilized None * Please name any agencies selected above. N/A * Additional services required to return to the preadmission environment? No * Can the patient safely return to the preadmission environment? Yes * Has this patient been hospitalized within the prior 30 days at any hospital? No Coverage Notice Reviewer: [id number] Sana Mccloud Notice Issued Date-Time: 01/17/2019 15:45 Notice Type: IM Discharge Notice Notice Delivered To: Patient Relationship to Patient: Self Track Mechanic Name: Delivery Method: HAND - Hand Delivered Dara Days: Prior Verbal Notification: Recipient Understood Notice: Yes Recipient Signature: Yes Med Rec Note Co-signed by Attending: Coverage Notice Comment: Last DP export: 01/17/19 2:02 p Patient Name: MARIAM THAYER Page [id number] at 0835 All edits/amendments must be made on the electronic document DICTATION DATE: 01/21/1935 SOLUTIONS ARCHITECT: KWAME 01/21/1935 RPT#: [id number] DC DATE:01/17/19 STATUS: DIS IN [facility] [address] [place] [address] END OF REPORT
== END 2019-01-17 18:38 | disposition home or self-care (01) | DRG 811 ==
LOC: D.ER 09:47 → D.M3 11:58
PROVIDERS: Family Medicine; ADMIT Family Medicine Adult Medicine; ATTEND Family Medicine Adult Medicine
DX: D64.9 Anemia, unspecified (principal); E43 Unspecified severe protein-calorie malnutrition; Z68.1 Body mass index [BMI] 19.9 or less, adult; Z86.73 Personal history of transient ischemic attack (TIA), and cerebral infarction without residual deficits; E87.6 Hypokalemia; E83.51 Hypocalcemia; I10 Essential (primary) hypertension; I25.10 Atherosclerotic heart disease of native coronary artery without angina pectoris; K21.9 Gastro-esophageal reflux disease without esophagitis

== ENCOUNTER → 2019-12-05 12:17 | Outpatient (CLI) | payer MEDICARE, MEDICAID ==
[2019-01-15 18:32] VITALS: BMI 16.1
== END | disposition home or self-care (01) ==
LOC: D.US 11-04 10:30
PROVIDERS: ATTEND Thoracic Surgery (Cardiothoracic Vascular Surgery)
DX: I65.23 Occlusion and stenosis of bilateral carotid arteries (principal)